=== PATIENT | female | born 1955 | race Caucasian/White ===

== ENCOUNTER 2019-10-18 18:45 | Observation (INO) | payer BC ==
[~2019-10-18] VITALS: Ht 172.7 cm; Wt 90.7 kg
[~2019-10-18 18:45] MED LIST changes: +ACETAMINOPHEN 325 MG TABLET PO PRN; -ATOR10TA66 PO; -BACI1CAP6 PO; -CEFD300C3 PO; -CETI10TA21 PO; -CHOL500061 PO; -HYDR12.56 PO; +KCL 8 MEQ (MICRO K) TABLET PO ONE; -LISI40TA PO; +LORazepam INJ 2 MG/ML (ATIVAN) VIAL IVP PRN; -MULT-1106 PO; -MULT1TAB60 PO; +ONDANSETRON 4 MG/2 ML (SDV) Z0FRAN IV PRN; +PATIENT MAY USE OWN MEDS, ALL PO SCH; -PHEN32.44 PO; -SULF1TAB35 PO
[2019-10-18] MEDS: cefTRIAXone FOR IV USE 1,000 MG in WATER (STERILE) FOR INJECTION 10 ML IV SCH (19:11)
[2019-10-18] MEDS: NS W/KCL 20 MEQ/L 1,000 ML IV SCH (19:11)
--- NOTE | 2019-10-18 19:35 | NUR ---
JOVANI LOPEZ admitted to room 426-1, with an admitting diagnosis of uti and hypokalemia , on 10/18/19 direct admit. JOVANI LOPEZ introduced to surroundings, call light, bed controls, phone, TV, temperature control, lights, meal times, smoking policy, visitor policy, side rail policy, bathrooms and showers. Patient Rights given to patient in the handbook. JOVANI LOPEZ verbalizes understanding that [facility] is not responsible for the loss or damage to any personal effects or valuables that are kept in the patients posession during their hospitalization. The following Patient Care Plans and discharge were discussed with the patient. JOVANI LOPEZ verbalizes understanding of Interdisciplinary Patient Education. Patient was informed about the Rapid Response Team and its purpose.
[2019-10-18] MEDS ORDERED: CATHETER FLUSH 10 ML SYR IV PRN (19:45)
[2019-10-18 20:00] VITALS: BP 147/77
[2019-10-18] MEDS ORDERED: PHENYTOIN 100 MG (DILANTIN) CAP PO SCH (21:00)
[2019-10-18] MEDS ORDERED: PHENobarbital 16.2 MG (1/4 GRAIN) TABLET PO SCH (21:00)
[2019-10-18 21:19] VITALS: BP 141/63
--- NOTE | 2019-10-18 21:35 | NUR ---
THIS RN WAS UPDATING MEDICATION REQ. PATIENT HAD QUESTIONS REGARDING IF SHE SHE TAKE ANY OF THE HOME MEDICATIONS THAT SHE BROUGHT WITH HER TO THE HOSPITAL. DR. LAUREN NOTIFIED OF PATIENT'S CONCERN AT THIS TIME. NO ADDITIONAL ORDERS FOR ANY HOME MEDICATIONS OTHER THAN WHAT WAS ORDERED UPON ADMISSION AT THIS TIME.
[2019-10-18] MEDS ORDERED: CHOL500061 PO (21:43)
[2019-10-18] MEDS ORDERED: ATOR10TA66 PO (21:43)
[2019-10-18] MEDS ORDERED: PHEN32.44 PO (21:43)
[2019-10-18] MEDS ORDERED: HYDR12.56 PO (21:43)
[2019-10-18] MEDS ORDERED: LISI40TA PO (21:43)
[2019-10-18] MEDS ORDERED: MULT-1106 PO (21:43)
[2019-10-18] MEDS ORDERED: PHEN100C4 PO (21:50)
[2019-10-19 00:30] VITALS: BP 128/70
[2019-10-19] MEDS: NS W/KCL 20 MEQ/L 1,000 ML IV SCH ×2 (02:17→09:25)
[2019-10-19 04:00] VITALS: BP 122/70
[2019-10-19 05:05] LABS: BASOPHILS % (AUTO) 0 % (0-10); EOSINOPHILS # (AUTO) 0.7 10^3/uL (0.0-0.3); EOSINOPHILS % (AUTO) 6 % (0-10); HEMATOCRIT 29 % (35-52); HEMOGLOBIN 9.7 G/DL (11.5-16.0); LYMPHOCYTES # (AUTO) 1.7 X 10^3 (1.0-4.0); LYMPHOCYTES % (AUTO) 15 % (12-44); MEAN CORPUSCULAR HEMOGLOBIN 29 PG (25-34); MEAN CORPUSCULAR HGB CONC 33 G/DL (32-36); MEAN CORPUSCULAR VOLUME 88 FL (80-99); MEAN PLATELET VOLUME 8.9 FL (7.4-10.4); MONOCYTES % (AUTO) 9 % (0-12); NEUTROPHILS # (AUTO) 8.2 X 10^3 (1.8-7.8); NEUTROPHILS % (AUTO) 70 % (42-75); PLATELET COUNT 396 10^3/uL (130-400); RED CELL DISTRIBUTION WIDTH 13.5 % (10.0-14.5); WHITE BLOOD COUNT 11.7 10^3/uL (4.3-11.0)
[2019-10-19 05:24] LABS: ALBUMIN 3.1 GM/DL (3.2-4.5); BILIRUBIN,TOTAL 0.2 MG/DL (0.1-1.0); CALCIUM 8.4 MG/DL (8.5-10.1); CREATININE SERUM 1.04 MG/DL (0.60-1.30); POTASSIUM 3.8 MMOL/L (3.6-5.0); TOTAL PROTEIN 5.8 GM/DL (6.4-8.2)
[2019-10-19 08:00] VITALS: BP 133/64
[2019-10-19] MEDS: cefTRIAXone FOR IV USE 1,000 MG in WATER (STERILE) FOR INJECTION 10 ML IV SCH (09:26)
[2019-10-19] MEDS ORDERED: BACI1CAP6 PO (09:39)
[2019-10-19] MEDS ORDERED: SULF1TAB35 PO (09:39)
[2019-10-19] MEDS ORDERED: CETI10TA21 PO (09:39)
[2019-10-19] MEDS ORDERED: MULT1TAB60 PO (09:39)
--- NOTE | 2019-10-19 09:39 | NUR ---
SPOKE WITH THE PT (SHE SAID SHE HAD HER HOME MEDS BUT I DID NOT NEED THEM) WENT THRU THE EXT MED HISTORY TO COMPLETE THE MED REC. DILANTIN 100MG: THE RX SAYS " 1-2 CAPS HS" HOWEVER THE PT JUST TAKES 1 HS ALL OTHER MEDS MATCH THE EXT MED HISTORY. OTC MEDS: VIT D MTV LOTTIE PintoYRTEC PROBIOTIC
[2019-10-19 12:00] VITALS: BP 129/87
[2019-10-19] MEDS ORDERED: CEFD300C3 PO (12:39)
--- NOTE | 2019-10-19 13:15 | Discharge Summary ---
Discharge Summary Hospital Course Was the Problem List Reviewed?: Yes Hospital Course Date of Admission: Oct 18, 2019 at 18:46 Admission Diagnosis : Family Physician/Provider: Marzena Schofield DO Date of Discharge: 10/19/19 Discharge Diagnosis: 1. Hypokalemia--improved 2. UTI--improving 3. Dehydration--Improved 4. Hypertension--stable 5. Seizure Disorder--Stable Hospital Course: See below Labs and Pending Lab Test: Laboratory Tests 10/19/19 04:30: White Blood Count 11.7H, Red Blood Count 3.31L, Hemoglobin 9.7L, Hematocrit 29L, Mean Corpuscular Volume 88, Mean Corpuscular Hemoglobin 29, Mean Corpuscular Hemoglobin Concent 33, Red Cell Distribution Width 13.5, Platelet Count 396, Mean Platelet Volume 8.9, Neutrophils (%) (Auto) 70, Lymphocytes (%) (Auto) 15, Monocytes (%) (Auto) 9, Eosinophils (%) (Auto) 6, Basophils (%) (Auto) 0, Neutrophils # (Auto) 8.2H, Lymphocytes # (Auto) 1.7, Monocytes # (Auto) 1.0, Eosinophils # (Auto) 0.7H, Basophils # (Auto) 0.0, Sodium Level 135, Potassium Level 3.8, Chloride Level 99, Carbon Dioxide Level 25, Anion Gap 11, Blood Urea Nitrogen 16, Creatinine 1.04, Estimat Glomerular Filtration Rate 54, BUN/Creatinine Ratio 15, Glucose Level 110H, Calcium Level 8.4L, Corrected Calcium 9.1, Total Bilirubin 0.2, Aspartate Amino Transf (AST/SGOT) 15, Alanine Aminotransferase (ALT/SGPT) 28, Alkaline Phosphatase 65, Total Protein 5.8L, Albumin 3.1L Home Meds Active Cefdinir 300 Mg Capsule 300 Mg PO BID Reported Probiotic (Bacillus Coagulans) 1 Each Capsule. 1 Each PO DAILY Zyrtec (Cetirizine HCl) 10 Mg Tablet 10 Mg PO DAILY Bactrim Ds Tablet (Sulfamethoxazole/Trimethoprim) 1 Each Tablet 1 Ea PO BID FILLED 10-18-2019 #29/05 DAY SUPPLY Chewable-Miguel (Multivitamin) 1 Each Tab.chew 2 Each PO DAILY Dilantin (Phenytoin Sodium Extended) 100 Mg Capsule 100 Mg PO HS Hydrochlorothiazide 12.5 Mg Tablet 12.5 Mg PO DAILY Vitamin D3 (Cholecalciferol (Vitamin D3)) 5,000 Unit Tab.rapdis 5,000 Unit PO DAILY Lisinopril 40 Mg Tablet 40 Mg PO DAILY Phenobarbital 32.4 Mg Tablet 32.4 Mg PO HS Atorvastatin Calcium 10 Mg Tablet 10 Mg PO HS Assessment/Pt Instructions This is a 64 year old female who had been treated for an outpatient UTI but was feeling worse. Laboratory was done which showed hypokalemia at 2.9 and renal insufficiency. It was decided to admit her for IVFs, correction of potassium as well as IV rocephin. She was admitted to the medical floor and given NS with 20meq of KCL via IV. She was also given IV rocephin and oral potassium replacement. The following hospital day, her potassium was back to normal at 3.8. She was feeling much better and urinating frequently. She was given another dose of IV rocephin and then discharged home to followup with me in the office tomorrow. She will hold her HCTZ until she sees me tomorrow. Discharge Planning: <30 minutes discharge planning Discharge Instructions Discharge Diet: Cardiac Diet Activity as Tolerated: Yes Discharge Physical Examination Vital Signs Vital Signs Date Time Temp Pulse Resp B/P (MAP) Pulse Ox O2 Delivery O2 Flow Rate FiO2 10/19/19 12:00 36.8 78 18 129/87 (101) 93 Room Air General Appearance: No Apparent Distress HEENT: Normal ENT Inspection Respiratory: Lungs Clear Cardiovascular: Regular Rate, Rhythm Gastrointestinal: Normal Bowel Sounds, Non Tender, Soft Extremity: Non Tender, No Calf Tenderness, No Pedal Edema Skin: Warm/Dry Neurologic/Psychiatric: Alert, Oriented x3 Allergies: Coded Allergies: carbamazepine (Unverified Allergy, Unknown, 10/18/19) Discharge Summary Date of Admission Oct 18, 2019 at 18:46 Date of Discharge Clinical Quality Measures DVT/VTE Risk/Contraindication: Risk Factor Score Per Nursin RFS Level Per Nursing on Admit: 3=High MARZENA SCHOFIELD DO Oct 19, 2019 13:06
[2019-10-19 13:42] VITALS: BP 129/87
--- OUTSIDE RECORDS SUMMARY | 2019-10-20 22:35 | XMS REPORT | CCD ---
Author Author Clarissa Schofield D.O. Organization VIRAJ SCHOFIELD DO [facility] Address [address] [place] [address] Phone Care Team Providers Care Medical Billing Clerk Name Role Phone PP Unavailable CCM Unavailable Summary Purpose Interface Exchange Insurance Providers Payer name Policy type / Coverage type Covered green party ID Effective Begin Date Effective End Date Blue Cross Blue Shield Blue Cross/Blue Shield [id number] Unknown Family history Mother Diagnosis Age At Onset Dementia Unknown Macular degeneration Unknown Breast cancer Unknown Sister Diagnosis Age At Onset Macular degeneration Unknown Ovarian cancer Unknown Breast cancer Unknown Social History Social History Element Codes Description Effective Dates Marital status Unknown 05/03/2019 Number of children Unknown 3 05/03/2019 Employment Unknown Retired 05/03/[address]: 635890886 Has never smoked or chewed tobacco 05/03/[address]: 454552 Currently drinks alcohol 05/03 Frequency of drinks SNOMED CT: 485997639 Drinks rarely 019 Has the patient ever used illegal drugs? Unknown Has nev er used illegal drugs 05/03/2019 Allergies, Adverse Reactions, Alerts Substance Reaction Codes Entered Date Inactivated Date Status * NO KNOWN ENVIRONMENTAL ALLERGIES Unknown 05/03/2019 N o Inactive Date Active * NO KNOWN FOOD ALLERGIES Unknown 05/03/2019 No Inactiv e Date Active CARBAMAZEPINE DERIVATIVES reaction Unknown 05/03/2019 No Inactiv e Date Active Problems Condition Codes Effective Dates Condition Status Essential hypertension ICD-9: 401.9 ICD-10: I10 06/07/2019 Active Fatigue ICD-9: 780.79 ICD-10: R53.83 10/18/2019 Active Seizure ICD-9: 780.39 ICD-10: R56.9 05/03/2019 Active UTI (urinary tract infection) ICD-9: 599.0 ICD-10: N39.0 10/10/2019 Active Weakness ICD-9: 780.79 ICD-10: R53.1 10/18/2019 Active Pneumonia due to infectious organism ICD-9: 486 ICD-10: J18.9 08/11/2019 Active Sinusitis ICD-9: 473.9 ICD-10: J32.9 06/29/2019 Active Hypertension Unknown 06/07/2019 Active Abnormal mammogram ICD-9: 793.80 ICD-10: R92.8 05/23/2019 Active Elevated blood pressure reading ICD-9: 796.2 ICD-10: R03.0 05/03/2019 Active FLU VACCINE ICD-9: V04.81 ICD-10: Z23 05/03/2019 Active Knee pain, bilateral ICD-9: 719.46 ICD-10: M25.561 05/03/2019 Active Medications Medication Codes Instructions Start Date Stop Date Status Fill Instructions lisinopril 40 mg tablet RxNorm: 913939 1 Tablet(s) Oral QD 10/18/1910/18/2019 Inactive Bactrim DS 800 mg-160 mg tablet RxNorm: 171850 1 Tablet(s) Oral two times a day 10/18/2019 10/28/2019 Active phenobarbital 32.4 mg tablet RxNorm: 269008 1 Tablet(s) Oral every night at bedtime 10/10/2019 04/07/2020 Active Macrobid 100 mg capsule RxNorm: 967134 1 Capsule(s) Oral two ti mes a day 10/10/2019 10/13/2019 Inactive Dilantin Extended 100 mg capsule RxNorm: 112347 1-2 Cap gael(s) Oral every night at bedtime 09/21/2019 03/18/2020 Active albuterol sulfate 2.5 mg/3 mL (0.083 %) solution for n ebulization RxNorm: 577559 1 Unit Dose Inhalation four times a day 08/11/2019 10/10/2019 I nactive Augmentin 500 mg-125 mg tablet RxNorm: 336947 1 Tablet(s) Oral two times a day 08/11/2019 08/18/2019 Inactive doxycycline hyclate 100 mg capsule RxNorm: 1041351 1 Cap gael(s) Oral two times a day 08/01/2019 08/07/2019 Inactive doxycycline hyclate 100 mg capsule RxNorm: 8523983 1 Cap gael(s) Oral two times a day 08/01/2019 07/31/2019 Inactive hydrochlorothiazide 12.5 mg capsule RxNorm: 372352 1 Capsule(s) Oral QAM 07/19/2019 10/17/2019 Inactive lisinopril 40 mg tablet RxNorm: 303062 1 Tablet(s) Oral QD 07/19/2007/19/2019 Inactive Zithromax Z-Alex 250 mg tablet RxNorm: 982507 Tablet(s) Oral estefany e as directed 06/29/2019 07/18/2019 Inactive lisinopril 40 mg tablet RxNorm: 960451 1 Tablet(s) Oral QD 06/29/20 19 07/18/2019 Inactive Dilantin Extended 100 mg capsule RxNorm: 331318 1-2 Cap gael(s) Oral every night at bedtime 06/07/2019 09/20/2019 Inactive lisinopril 20 mg tablet RxNorm: 791060 1 Tablet(s) Oral QD 06/07/20 19 06/29/2019 Inactive phenobarbital 32.4 mg tablet RxNorm: 841385 1 Tablet(s) Oral every night at bedtime 06/07/2019 09/04/2019 Inactive atorvastatin 10 mg tablet RxNorm: 735706 1 Tablet(s) Oral QD 201811/01/2019 Active atorvastatin 10 mg tablet RxNorm: 951076 1 Tablet(s) Oral QD 201805/05/2019 Inactive Zyrtec 10 mg tablet RxNorm: 4841133 1 Tablet(s) Oral QAM 05/03/2019 No Stop Date Active Fish Oil 1,000 mg (120 mg-180 mg) capsule RxNorm: 1 Caps ule(s) Oral QD 05/03/2019 No Stop Date Active Vitamin D3 5,000 unit tablet RxNorm: 332449 1 Tablet(s) Oral QD No Stop Date Active Centrum 18 mg-400 mcg tablet RxNorm: 1 Tablet(s) Oral QD 05/03 No Stop Date Active Dilantin Extended 100 mg capsule RxNorm: 442292 1-2 Cap gael(s) Oral every night at bedtime 05/03/2019 06/06/2019 Inactive phenobarbital 32.4 mg tablet RxNorm: 487326 1 Tablet(s) Oral every night at bedtime 05/03/2019 06/06/2019 Inactive Medication Administered No Medication Administered data Immunizations Vaccine Codes Date Status Influenza CVX: 141 05/03/2019 Complete Influenza CVX: 141 05/03/2019 Complete Results Observation Observation Code Item Item Code Result Date [facility] Location COMPLETE BLOOD COUNT [id number] WBC 12.2 10e9/L 020 Unknown COMPLETE BLOOD COUNT [id number] RBC 3.86 10e12/L 2019 Unknown COMPLETE BLOOD COUNT 1788343 HEMOGLOBIN 11.4 g/dL 10/18/19 20 Unknown COMPLETE BLOOD COUNT [id number] HEMATOCRIT 34.3 % 10/18/19 20 Unknown COMPLETE BLOOD COUNT [id number] MCV 88.9 fL 0 Unknown COMPLETE BLOOD COUNT 7000773 MCH 29.5 pg 0 Unknown COMPLETE BLOOD COUNT [id number] MCHC 33.2 g/dL 0 Unknown COMPLETE BLOOD COUNT [id number] PLATELET COUNT 495 10e9/L 05/2020 Unknown COMPLETE BLOOD COUNT [id number] Mean Plt Volume 8.9 fL 05/2020 Unknown COMPLETE BLOOD COUNT [id number] Neut Auto 74.8 % 0 Unknown COMPLETE BLOOD COUNT 7809894 Lymph Auto 11.9 % 10/18/19 20 Unknown COMPLETE BLOOD COUNT 6013251 [place] Auto 7.5 % 0 Unknown COMPLETE BLOOD COUNT 5286655 RDW 13.8 % 0 Unknown COMPLETE BLOOD COUNT 9330747 Eos Auto 5.3 % 0 Unknown COMPLETE BLOOD COUNT 1265814 Baso Auto 0.5 % 0 Unknown COMPLETE BLOOD COUNT [id number] Neutrophil Abs 9.13 10e9/L Unknown COMPLETE BLOOD COUNT 1981047 Lymphocyte Abs 1.45 10e9/L Unknown COMPLETE BLOOD COUNT 1025499 Monocyte Abs 0.92 10e9/L 10/08 Unknown COMPLETE BLOOD COUNT [id number] Eosinophil Abs 0.65 10e9/L Unknown COMPLETE BLOOD COUNT 2642830 RDW-SD 44.0 fL 0 Unknown COMPLETE BLOOD COUNT [id number] Basophil Abs 0.06 10e9/L 10/08 Unknown GFR CALC 7843998 GFR Non Afr Amr 50 mL/min 10/18/2019 Unk nown GFR CALC 6234199 GFR Afr Amr 60 mL/min 10/18/2019 Unknown COMPREHENSIVE METABOLIC 03004 AST 18 U/L 2019 Unknown COMPREHENSIVE METABOLIC 24382 ALT 31 U/L 2019 Unknown COMPREHENSIVE METABOLIC 19642 BUN 20 mg/dL 2019 Unknown COMPREHENSIVE METABOLIC 47811 ALBUMIN 3.7 g/dL 2019 Unknown COMPREHENSIVE METABOLIC 71924 CHLORIDE 90 mmol/L 2019 Unknown COMPREHENSIVE METABOLIC 64200 Bili Total 0.3 mg/dL 10/17 Unknown COMPREHENSIVE METABOLIC 19170 ALK PHOS 84 U/L 2019 Unknown COMPREHENSIVE METABOLIC 47996 SODIUM 132 mmol/L 10/17 Unknown COMPREHENSIVE METABOLIC 38845 CREATININE 1.11 mg/dL 10/08 Unknown COMPREHENSIVE METABOLIC 13142 CALCIUM 8.7 mg/dL 2019 Unknown COMPREHENSIVE METABOLIC 81468 POTASSIUM 2.9 mmol/L 10/17 Unknown COMPREHENSIVE METABOLIC 42803 Total Protein 6.6 g/dL Unknown COMPREHENSIVE METABOLIC 38801 Glucose 109 mg/dL 2019 Unknown COMPREHENSIVE METABOLIC 60539 Bicarbonate 31 mmol/L 10/08 Unknown COMPREHENSIVE METABOLIC 33737 AGAP 11 mmol/L 2019 Unknown Procedures Procedure Codes Date URINE CULTURE/ COLONY COUNT CPT-4: 43453 10/18/2019 COMPLETE CBC W/AUTO DIFF WBC CPT-4: 76275 10/18/2019 COMPREHEN METABOLIC PANEL CPT-4: 34126 10/18/2019 ASSAY OF PHENYTOIN TOTAL CPT-4: 43191 10/18/2019 ASSAY OF PHENOBARBITAL CPT-4: 95958 10/18/2019 URINALYSIS NONAUTO W/O SCOPE CPT-4: 36393 10/10/2019 THER/PROPH/DIAG INJ SC/IM CPT-4: 59285 10/10/2019 CEFTRIAXONE SODIUM INJECTION CPT-4: J0696 10/10/2019 URINE CULTURE/ COLONY COUNT CPT-4: 73746 10/10/2019 THER/PROPH/DIAG INJ SC/IM CPT-4: 14070 08/11/2019 TRIAMCINOLONE ACET INJ NOS CPT-4: J3301 08/11/2019 CEFTRIAXONE SODIUM INJECTION CPT-4: J0696 08/11/2019 THER/PROPH/DIAG INJ SC/IM CPT-4: 92498 08/11/2019 IIV4 VACC NO PRSV 6 MTHS TO 64 YRS+ IM CPT-4: 66487 05/03/2019 IIV4 VACC NO PRSV 6 MTHS TO 64 YRS+ IM CPT-4: 50064 05/03/2019 IMMUNIZATION ADMIN CPT-4: 64012 05/03/2019 Vital Signs Date Vital 10/18/2019 Blood Pressure 1: 138/82 Code: 8480-6 Heart Rate 1: 82 bpm Respiratory Rate: 20 bpm SpO2: 98% Temperature: 36.7 (C) / 98.0 (F) We ight: 10/10/2019 Blood Pressure 1: 144/79 Code: 8480-6 Heart Rate 1: 97 bpm Respiratory Rate: 17 bpm SpO2: 98% Temperature: 36.6 (C) / 97.9 (F) We ight: 202 lbs 08/11/2019 Blood Pressure 1: 126/78 Code: 8480-6 Heart Rate 1: 92 bpm Respiratory Rate: 20 bpm SpO2: 97% Temperature: 37.0 (C) / 98.6 (F) 07/19/2019 Blood Pressure 1: 140/88 Code: 8480-6 He art Rate 1: 80 bpm 06/29/2019 Blood Pressure 1: 158/88 Code: 8480-6 Heart Rate 1: 80 bpm Respiratory Rate: 20 bpm SpO2: 98% Temperature: 37.2 (C) / 99.0 (F) 06/07/2019 Blood Pressure 1: 150/92 Code: 8480-6 Heart Rate 1: 68 bpm Respiratory Rate: 20 bpm SpO2: 98% Temperature: 36.8 (C) / 98.2 (F) We ight: 204 lbs 05/03/2019 Blood Pressure 1: 146/92 Code: 8480-6 BMI: 32.3 Code: 59607-7 Heart Rate 1: 72 bpm Height: 5'6" Respiratory Rate: 18 bpm SpO2: 98% Tempera ture: 36.8 (C) / 98.2 (F) Weight: 203 lbs Functional Status No Functional Status data Reason For Visit Reason For Visit Effective Dates Notes fatigue 10/18/2019 urinary retention/hesitancy 10/10/2019 follow up 08/11/2019 blood pressure check 07/19/2019 high blood pressure 06/29/2019 high blood pressure 06/07/2019 ~generic 05/03/2019 New Patient--mariella jose m care Encounters Encounter Performer Location Codes Date ([id number]) OFFICE/OUTPATIENT VISIT EST Diagnosis: Essential hypertension[ICD10: I10] Diagnosis: Seizure[ICD10: R56.9] Diagnosis: UTI (urinary tract infection)[ICD10: N39.0] Diagnosis: Fatigue[ICD10: R53.83] Diagnosis: Weakness[ICD10: R53.1] Brittney Triana VIRAJ SCHOFIELD DO [employer] CPT-4: 99659 10/18/2019 ([id number]) OFFICE/OUTPATIENT VISIT EST Diagnosis: UTI (urinary tract infection)[ICD10: N39.0] Brittney Triana VIRAJ Lutz AMYAARON [facility] [employer] CPT-4: 67342 10/10/2019 ([id number]) OFFICE/OUTPATIENT VISIT EST Diagnosis: Pneumonia due to infectious organism[ICD10: J18.9] Viraj SCHOFIELD DO [employer] CPT-4: 54677 08/11/2019 ([id number]) OFFICE/OUTPATIENT VISIT EST Diagnosis: Essential hypertension[ICD10: I10] Diagnosis: Sinusitis[ICD10: J32.9] Brittney TREVIZOAFSHIN Lutz AMYTRISTAN DAVEY [employer] CPT-4: 81325 06/29/2019 ([id number]) OFFICE/OUTPATIENT VISIT EST Diagnosis: Essential hypertension[ICD10: I10] Viraj Lutz AMYAARON [employer] CPT-4: 20371 06/07/2019 OFFICE/OUTPATIENT VISIT NEW Diagnosis: FLU VACCINE[ICD10: Z23] Diagnosis: Seizure[ICD10: R56.9] Diagnosis: Knee pain, bilateral[ICD10: M25.561] Diagnosis: Elevated blood pressure reading[ICD10: R03.0] Viraj Lutz AMYAARON [employer] CPT-4: 65056 05/03/2019 Plan of Care Planned Activity Notes Codes Status Date Visit Diagnosis Plan: UTI (urinary tract infection) Di scussion: will repeat urine culture. bactrim sent out for patient to start due to continued blood and leukocytes present in urine. ICD-9 : 599.0 ICD-10 : N39.0 10/18/2019 Visit Diagnosis Plan: Fatigue Discussion: cbc, cmp, ur ine culture ordered. ekg ordered as well. phenobarbital and dilantin levels ordered and instructed patient to push fluids. ICD-9 : 780.79 ICD-10 : R53.83 10/18/2019 Patient Education: lisinopril- [employer] Coupon [id number] [email or web address]/samplemd/resources/[email or web address] Completed 10/18/2019 Patient Education: High Blood Pressure Co mpleted 10/18/2019 Visit Diagnosis Plan: UTI (urinary tract infection) Di scussion: due to severity of uti and length, rocephin 1 gm given in office. macrobid to take as directed to start tomorrow. push fluids. will send off for culture. to start probiotic daily Discussion: due to severity of uti and length, rocephin 1 gm given in office. macrobid to take as directed to start tomorrow. push fluids. will send off for culture. to start probiotic daily. ICD-9 : 599.0 ICD-10 : N39.0 10/10/2019 Appointment: Brittney Triana [address] [place] [address] ACUTE ILLNESS 10/10/2019 Visit Diagnosis Plan: Pneumonia due to infectious orga nism Discussion: Rocephin 1gm IM and Kenalog 40mg IM Start augementin tomorrow with probiotic BID Start SVNS with albuterol TID to QID Call tomorrow if needs seen or to ER this weekend if worsening ICD-9 : 486 ICD-10 : J18.9 08/11/2019 Appointment: Viraj Schofield WPtel: [address] [place], [place] [phone] ACUTE ILLNESS 08/11/2019 Appointment: Viraj Schofield WPtel: [address] [place], [place] [id number] US BP CHECK 07/19/2019 Visit Diagnosis Plan: Essential hypertension Discussio n: increase lisinopril to 40 mg daily. keep log of bp daily and bring in 2 weeks and also recheck bp in office in 2 weeks. ICD-9 : 401.9 ICD-10 : I10 06/29/2019 Visit Diagnosis Plan: Sinusitis Discussion: patient di d not tolerate cefdinir and augmentin is harsh on her gi system. will prescribe zpack but educated patient that many sinus infections are becoming resistant to medications. call if no improvement by thursday. coricidin hbp prn sinus pressure. ICD-9 : 473.9 ICD-10 : J32.9 06/29/2019 Appointment: Viraj Schofield WPtel: [address] [place] [address] BP CHECK 06/29/2019 Appointment: Brittney Triana [address] [place] [address] ACUTE ILLNESS 06/29/2019 Patient Education: [facility]inez Patient Savings Message - Lisinopril Completed 06/29/2019 Patient Education: High Blood Pressure Co mpleted 06/29/2019 Appointment: Viraj Schofield WPtel: [address] [place] [address] US did not need appt. Only to come in for BP 3 weeks from previ ous patient. CANCELED 06/28/2019 Visit Diagnosis Plan: Essential hypertension Discussio n: Start lisinopril 20mg daily Monitor home BP Return in 3 weeks for BP check with home readings as well as home cuff ICD-9 : 401.9 ICD-10 : I10 06/07/2019 Appointment: Viraj Schofield WPtel: [address] [place] [address] FOLLOW UP 06/07/2019 Patient Education: [facility] Patient Savings Message - Lisinopril Completed 06/07/2019 Patient Education: Dilantin Extended- OptimizeRX Coupo n [id number] [email or web address]/samplemd/resources/getResource/[email or web address] Completed 06/07/2019 Patient Education: phenobarbital- [employer] Coupon [phone] [id number] [email or web address].com/samplemd/resources/getResource/61/[email or web address]-[email or web address] Completed 06/07/2019 Visit Plan: Mammogram ordered Patient wi ll find out if her mom's colon resection was due to cancer or other reason--discussed that if was from cancer then is due for colonoscopy since should be every 5 years May need pelvic US due to family history of [employer] cancers Referral to dermatology for skin check DtaP up to date Flu shot given 05/03/2019 Visit Diagnosis Plan: Seizure Discussion: Stable on ph enobarbital and phenytoin Discussed possible neurology eval for updated EEG to see if continues to need medications ICD-9 : 780.39 ICD-10 : R56.9 05/03/2019 Visit Diagnosis Plan: Elevated blood pressure reading Discussion: Low Na Diet and return in 4 weeks for BP check ICD-9 : 796.2 ICD-10 : R03.0 05/03/2019 Visit NOS Plan: Plan Notes: Mammogram ordere d Patient karthikeyan... 05/03/2019 Visit Diagnosis Plan: Knee pain, bilateral Discussion: Did Stem Cell treatment 2 years ago and doing well ICD-9 : 719.46 ICD-10 : M25.561 05/03/2019 Appointment: Viraj Schofield WPtel: [phone] [facility] NEW PATIENT 05/03/2019 Referral: Sofía More WPtel: [facility] [address] [facility] Referral Initiated Instructions Comment . Mammogram ordered Patient will find out if her mom's colon resection was due to cancer or other reason--discussed that if was from cancer then is due for colonoscopy since should be every 5 years May need pelvic US due to family history of [employer] cancers Referral to dermatology for skin check DtaP up to date Flu shot given Medical Equipment No Medical Equipment data Health Concerns Section Health Concerns data not found Goals Section Goals data not found Interventions Section Interventions data not found Health Status Evaluations/Outcomes Section Health Status Evaluations/Outcomes data not found Advance Directives No Advance Directive data
--- OUTSIDE RECORDS SUMMARY | 2019-10-20 22:35 | XMS REPORT | CCD ---
Author Author Clarissa Schofield D.O. 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 Name Role Phone PP Unavailable CCM Unavailable Summary Purpose Interface Exchange Insurance Providers Payer name Policy type / Coverage type Covered green party ID Effective Begin Date Effective End Date Blue Cross Blue Shield Blue Cross/Blue Shield [id number] Unknown Family history Mother Diagnosis Age At Onset Dementia Unknown Macular degeneration Unknown Breast cancer Unknown Sister Diagnosis Age At Onset Macular degeneration Unknown Ovarian cancer Unknown Breast cancer Unknown Social History Social History Element Codes Description Effective Dates Marital status Unknown 05/03/2019 Number of children Unknown 3 05/03/2019 Employment Unknown Retired 05/03/[address]: 543956815 Has never smoked or chewed tobacco 05/03/[address]: 341634 Currently drinks alcohol 05/03 Frequency of drinks SNOMED CT: 383485029 Drinks rarely 019 Has the patient ever [...] Start Date Stop Date Status Fill Instructions Bactrim DS 800 mg-160 mg tablet RxNorm: 602571 1 Tablet(s) Oral two times a day 10/18/2019 10/28/2019 Active lisinopril 40 mg tablet RxNorm: 404779 1 Tablet(s) Oral QD 10/18/1910/18/2019 Inactive phenobarbital 32.4 mg tablet RxNorm: 196658 1 Tablet(s) Oral every night at bedtime 10/10/2019 04/07/2020 Active Macrobid 100 mg capsule RxNorm: 452446 1 Capsule(s) Oral two ti mes a day 10/10/2019 10/13/2019 Inactive Dilantin Extended 100 mg capsule RxNorm: 116867 1-2 Cap gael(s) Oral every night at bedtime 09/21/2019 03/18/2020 Active albuterol sulfate 2.5 mg/3 mL (0.083 %) solution for n ebulization RxNorm: 578932 1 Unit Dose Inhalation four times a day 08/11/2019 10/10/2019 I nactive Augmentin 500 mg-125 mg tablet RxNorm: 266346 1 Tablet(s) Oral two times a day 08/11/2019 08/18/2019 Inactive doxycycline hyclate 100 mg capsule RxNorm: 9596556 1 Cap gael(s) Oral two times a day 08/01/2019 08/07/2019 Inactive doxycycline hyclate 100 mg capsule RxNorm: 1110984 1 Cap gael(s) Oral two times a day 08/01/2019 07/31/2019 Inactive hydrochlorothiazide 12.5 mg capsule RxNorm: 540589 1 Capsule(s) Oral QAM 07/19/2019 10/17/2019 Inactive lisinopril 40 mg tablet RxNorm: 185340 1 Tablet(s) Oral QD 07/19/2007/19/2019 Inactive Zithromax Z-Alex 250 mg tablet RxNorm: 446379 Tablet(s) Oral estefany e as directed 06/29/2019 07/18/2019 Inactive lisinopril 40 mg tablet RxNorm: 816312 1 Tablet(s) Oral QD 06/29/20 19 07/18/2019 Inactive Dilantin Extended 100 mg capsule RxNorm: 114511 1-2 Cap gael(s) Oral every night at bedtime 06/07/2019 09/20/2019 Inactive lisinopril 20 mg tablet RxNorm: 540170 1 Tablet(s) Oral QD 06/07/20 19 06/29/2019 Inactive phenobarbital 32.4 mg tablet RxNorm: 380286 1 Tablet(s) Oral every night at bedtime 06/07/2019 09/04/2019 Inactive atorvastatin 10 mg tablet RxNorm: 230727 1 Tablet(s) Oral QD 201811/01/2019 Active atorvastatin 10 mg tablet RxNorm: 399390 1 Tablet(s) Oral QD 201805/05/2019 Inactive Zyrtec 10 mg tablet RxNorm: 7023164 1 Tablet(s) Oral QAM 05/03/2019 No Stop Date Active Fish Oil 1,000 mg (120 mg-180 mg) capsule RxNorm: 1 Caps ule(s) Oral QD 05/03/2019 No Stop Date Active Vitamin D3 5,000 unit tablet RxNorm: 383748 1 Tablet(s) Oral QD No Stop Date Active Centrum 18 mg-400 mcg tablet RxNorm: 1 Tablet(s) Oral QD 05/03 No Stop Date Active Dilantin Extended 100 mg capsule RxNorm: 962554 1-2 Cap gael(s) Oral every night at bedtime 05/03/2019 06/06/2019 Inactive phenobarbital 32.4 mg tablet RxNorm: 500210 1 Tablet(s) Oral every night at bedtime 05/03/2019 06/06/2019 Inactive Medication Administered No Medication Administered data Immunizations Vaccine Codes Date Status Influenza CVX: 141 05/03/2019 Complete Influenza CVX: 141 05/03/2019 Complete Results Observation Observation Code Item Item Code Result Date S [facility] Location COMPLETE BLOOD COUNT [id number] WBC 12.2 10e9/L 020 Unknown COMPLETE BLOOD COUNT [id number] RBC 3.86 10e12/L 2019 Unknown COMPLETE BLOOD COUNT [id number] HEMOGLOBIN 11.4 g/dL 10/18/19 20 Unknown COMPLETE BLOOD COUNT 1063595 HEMATOCRIT 34.3 % 10/18/19 20 Unknown COMPLETE BLOOD COUNT [id number] MCV 88.9 fL 0 Unknown COMPLETE BLOOD COUNT [id number] MCH 29.5 pg 0 Unknown COMPLETE BLOOD COUNT [id number] MCHC 33.2 g/dL 0 Unknown COMPLETE BLOOD COUNT [id number] PLATELET COUNT 495 10e9/L 05/2020 Unknown COMPLETE BLOOD COUNT [id number] Mean Plt Volume 8.9 fL 05/2020 Unknown COMPLETE BLOOD COUNT [id number] Neut Auto 74.8 % 0 Unknown COMPLETE BLOOD COUNT [id number] Lymph Auto 11.9 % 10/18/19 20 Unknown COMPLETE BLOOD COUNT 9555065 Candler Auto 7.5 % 0 Unknown COMPLETE BLOOD COUNT [id number] RDW 13.8 % 0 Unknown COMPLETE BLOOD COUNT [id number] Eos Auto 5.3 % 0 Unknown COMPLETE BLOOD COUNT 3792244 Baso Auto 0.5 % 0 Unknown COMPLETE BLOOD COUNT [id number] Neutrophil Abs 9.13 10e9/L Unknown COMPLETE BLOOD COUNT 6113144 Lymphocyte Abs 1.45 10e9/L Unknown COMPLETE BLOOD COUNT [id number] Monocyte Abs 0.92 10e9/L 10/08 Unknown COMPLETE BLOOD COUNT 4101508 Eosinophil Abs 0.65 10e9/L Unknown COMPLETE BLOOD COUNT 7329240 RDW-SD 44.0 fL 0 Unknown COMPLETE BLOOD COUNT [id number] Basophil Abs 0.06 10e9/L 10/08 Unknown GFR CALC 5166907 GFR Non Afr Amr 50 mL/min 10/18/2019 Unk nown GFR CALC 9005718 GFR Afr Amr 60 mL/min 10/18/2019 Unknown ASSAY OF PHENYTOIN TOTAL 57029 DILANTIN <1.8 ug/mL 10/08 Unknown COMPREHENSIVE METABOLIC 67857 AST 18 U/L 2019 Unknown COMPREHENSIVE METABOLIC 36385 ALT 31 U/L 2019 Unknown COMPREHENSIVE METABOLIC 48377 BUN 20 mg/dL 2019 Unknown COMPREHENSIVE METABOLIC 73964 ALBUMIN 3.7 g/dL 2019 Unknown COMPREHENSIVE METABOLIC 97878 CHLORIDE 90 mmol/L 2019 Unknown COMPREHENSIVE METABOLIC 90229 Bili Total 0.3 mg/dL 10/17 Unknown COMPREHENSIVE METABOLIC 37735 ALK PHOS 84 U/L 2019 Unknown COMPREHENSIVE METABOLIC 92597 SODIUM 132 mmol/L 10/17 Unknown COMPREHENSIVE METABOLIC 80644 CREATININE 1.11 mg/dL 10/08 Unknown COMPREHENSIVE METABOLIC 00624 CALCIUM 8.7 mg/dL 2019 Unknown COMPREHENSIVE METABOLIC 66310 POTASSIUM 2.9 mmol/L 10/17 Unknown COMPREHENSIVE METABOLIC 55726 Total Protein 6.6 g/dL Unknown COMPREHENSIVE METABOLIC 46747 Glucose 109 mg/dL 2019 Unknown COMPREHENSIVE METABOLIC 94755 Bicarbonate 31 mmol/L 10/08 Unknown COMPREHENSIVE METABOLIC 22435 AGAP 11 mmol/L 2019 Unknown Procedures Procedure Codes Date URINE CULTURE/ COLONY COUNT CPT-4: 34230 10/18/2019 COMPLETE CBC W/AUTO DIFF WBC CPT-4: 05618 10/18/2019 COMPREHEN METABOLIC PANEL CPT-4: 63207 10/18/2019 ASSAY OF PHENYTOIN TOTAL CPT-4: 51434 10/18/2019 ASSAY OF PHENOBARBITAL CPT-4: 45361 10/18/2019 URINALYSIS NONAUTO W/O SCOPE CPT-4: 15484 10/10/2019 THER/PROPH/DIAG INJ SC/IM CPT-4: 06282 10/10/2019 CEFTRIAXONE SODIUM INJECTION CPT-4: J0696 10/10/2019 URINE CULTURE/ COLONY COUNT CPT-4: 43447 10/10/2019 THER/PROPH/DIAG INJ SC/IM CPT-4: 96723 08/11/2019 TRIAMCINOLONE ACET INJ NOS CPT-4: J3301 08/11/2019 CEFTRIAXONE SODIUM INJECTION CPT-4: J0696 08/11/2019 THER/PROPH/DIAG INJ SC/IM CPT-4: 69737 08/11/2019 IIV4 VACC NO PRSV 6 MTHS TO 64 YRS+ IM CPT-4: 73568 05/03/2019 IIV4 VACC NO PRSV 6 MTHS TO 64 YRS+ IM CPT-4: 29620 05/03/2019 IMMUNIZATION ADMIN CPT-4: 92153 05/03/2019 Vital Signs Date Vital 10/18/2019 Blood [...] 1: 146/92 Code: 8480-6 BMI: 32.3 Code: 78597-2 Heart Rate 1: 72 bpm Height: 5'6" Respiratory Rate: 18 bpm SpO2: 98% Tempera ture: 36.8 (C) / 98.2 (F) Weight: 203 lbs Functional Status No Functional Status data Reason For Visit Reason For Visit Effective Dates Notes fatigue 10/18/2019 urinary retention/hesitancy 10/10/2019 follow up 08/11/2019 blood pressure check 07/19/2019 high blood pressure 06/29/2019 high blood pressure 06/07/2019 ~generic 05/03/2019 New Patient--[facility] Encounters Encounter Performer Location Codes Date ([id number]) OFFICE/OUTPATIENT VISIT EST Diagnosis: Essential hypertension[ICD10: I10] Diagnosis: Seizure[ICD10: R56.9] Diagnosis: UTI (urinary tract infection)[ICD10: N39.0] Diagnosis: Fatigue[ICD10: R53.83] Diagnosis: Weakness[ICD10: R53.1] Brittney LOZALINE CharletteMitch XIN FU DiJiPOP LC CPT-4: 45374 10/18/2019 ([id number]) OFFICE/OUTPATIENT VISIT EST Diagnosis: UTI (urinary tract infection)[ICD10: N39.0] Brittney LOZALINE CharletteMitch JUAN PABLONDPETAR [employer] CPT-4: 12801 10/10/2019 ([id number]) OFFICE/OUTPATIENT VISIT EST Diagnosis: Pneumonia due to infectious organism[ICD10: J18.9] Marzena Juan Pabloaaron CALI SMitch JUAN PABLOAARON [facility] CPT-4: 42004 08/11/2019 ([id number]) OFFICE/OUTPATIENT VISIT EST Diagnosis: Essential hypertension[ICD10: I10] Diagnosis: Sinusitis[ICD10: J32.9] Brittney LOZALINE Charlette. JUAN PABLOND PETAR [facility] CPT-4: 50698 06/29/2019 ([id number]) OFFICE/OUTPATIENT VISIT EST Diagnosis: Essential hypertension[ICD10: I10] Marzena Lutz JUAN PABLOTRISTANPETAR [facility] CPT-4: 76456 06/07/2019 OFFICE/OUTPATIENT VISIT NEW Diagnosis: FLU VACCINE[ICD10: Z23] Diagnosis: Seizure[ICD10: R56.9] Diagnosis: Knee pain, bilateral[ICD10: M25.561] Diagnosis: Elevated blood pressure reading[ICD10: R03.0] Marzena Juan Pabloaaron CALI SMitch JUAN PABLONDPETAR [facility] CPT-4: 77076 05/03/2019 Plan of Care Planned Activity Notes [...] ICD-9 : 780.79 ICD-10 : R53.83 10/18/2019 Appointment: Brittney Triana [address] [place] [address] ACUTE ILLNESS 10/18/2019 Patient Education: lisinopril- OptimizeRX Coupon [id number] [email or web address]/getResource/[email or web address] Completed 10/18/2019 Patient Education: High Blood Pressure [...] ICD-10 : N39.0 10/10/2019 Appointment: Brittney Triana [address] [place] [address] ACUTE ILLNESS 10/10/2019 Visit Diagnosis Plan: Pneumonia due to infectious orga nism Discussion: Rocephin 1gm IM and Kenalog 40mg IM Start augementin tomorrow with probiotic BID Start SVNS with albuterol TID to QID Call tomorrow if needs seen or to ER this weekend if worsening ICD-9 : 486 ICD-10 : J18.9 08/11/2019 Appointment: Marzena Schofield WPtel: [address] [place] [address] ACUTE ILLNESS 08/11/2019 Appointment: Marzena Schofield WPtel: [phone] [phone] [place] BP CHECK 07/19/2019 Visit Diagnosis Plan: [...] : 473.9 ICD-10 : J32.9 06/29/2019 Appointment: Marzena Schofield WPtel: [address] [place], [place] [id number] BP CHECK 06/29/2019 Appointment: Brittney Triana [address] [place], [place] [address]a [facility] ACUTE ILLNESS 06/29/2019 Patient Education: Celina martinez Patient Savings Message - Lisinopril Completed 06/29/2019 Patient Education: High Blood Pressure Co mpleted 06/29/2019 Appointment: Marzena Schofield WPtel: [address] [place], [place] [phone] [place] did not need appt. Only to come in for BP 3 weeks from previ [place] patient. CANCELED 06/28/2019 Visit Diagnosis Plan: Essential hypertension Discussio n: Start lisinopril 20mg daily Monitor home BP Return in 3 weeks for BP check with home readings as well as home cuff ICD-9 : 401.9 ICD-10 : I10 06/07/2019 Appointment: Marzena Schofield WPtel: [phone] [facility] FOLLOW UP 06/07/2019 Patient Education: Celina martinez Patient Savings Message - Lisinopril Completed 06/07/2019 Patient Education: Dilantin Extended- OptimizeRX Coupo n [id number] https://www.[email or web address].Iterasi/samplemd/resources/getResource/61/[email or web address] Completed 06/07/2019 Patient Education: phenobarbital- OptimizeRX Coupon [phone] [id number] https://www.[employer].Iterasi/samplemd/resources/getResource/61/[email or web address]-[email or web address] Completed 06/07/2019 Visit Plan: Mammogram ordered Patient wi ll find out if her mom's colon resection was due to cancer or other reason--discussed that if was from cancer then is due for colonoscopy since should be every 5 years May need pelvic US due to family history of POULTRY KILLER cancers Referral to dermatology for skin check [...] : 719.46 ICD-10 : M25.561 05/03/2019 Appointment: Marzena Schofield WPtel: [address] [place], [place] [phone] NEW PATIENT 05/03/2019 Referral: Sofía More WPtel: [facility] [address] [id number] Referral Initiated Instructions Comment . Mammogram ordered Patient will find out if her mom's colon resection was due to cancer or other reason--discussed that if was from cancer then is due for colonoscopy since should be every 5 years May need pelvic US due to family history of POULTRY KILLER cancers Referral to dermatology for skin check DtaP up to date Flu shot given Medical Equipment No Medical Equipment data Health Concerns Section Health Concerns data not found Goals Section Goals data not found Interventions Section Interventions data not found Health Status Evaluations/Outcomes Section Health Status Evaluations/Outcomes data not found Advance Directives No Advance Directive data
--- OUTSIDE RECORDS SUMMARY | 2019-10-20 22:36 | XMS REPORT | CCD ---
Author Author Clarissa Schofield D.O. 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 Name Role Phone PP Unavailable CCM Unavailable Summary Purpose Interface Exchange Insurance Providers Payer name Policy type / Coverage type Covered alliance party ID Effective Begin Date Effective End Date Blue Cross Blue Shield Blue Cross/Blue Shield [id number] Unknown Family history Mother Diagnosis Age At Onset Dementia Unknown Macular degeneration Unknown Breast cancer Unknown Sister Diagnosis Age At Onset Macular degeneration Unknown Ovarian cancer Unknown Breast cancer Unknown Social History Social History Element Codes Description Effective Dates Marital status Unknown 05/03/2019 Number of children Unknown 3 05/03/2019 Employment Unknown Retired 05/03/[address]: 936261606 Has never smoked or chewed tobacco 05/03/[address]: 110120 Currently drinks alcohol 05/03 Frequency of drinks SNOMED CT: 845769077 Drinks rarely 019 Has the patient ever [...] Problems Condition Codes Effective Dates Condition Status UTI (urinary tract infection) ICD-9: 599.0 ICD-10: N39.0 10/10/2019 Active Pneumonia due to infectious organism ICD-9: 486 ICD-10: J18.9 08/11/2019 Active Essential hypertension ICD-9: 401.9 ICD-10: I10 06/07/2019 Active Sinusitis ICD-9: 473.9 ICD-10: J32.9 06/29/2019 Active Hypertension Unknown 06/07/2019 Active Abnormal mammogram ICD-9: 793.80 ICD-10: R92.8 05/23/2019 Active Elevated blood pressure reading ICD-9: 796.2 ICD-10: R03.0 05/03/2019 Active FLU VACCINE ICD-9: V04.81 ICD-10: Z23 05/03/2019 Active Knee pain, bilateral ICD-9: 719.46 ICD-10: M25.561 05/03/2019 Active Seizure ICD-9: 780.39 ICD-10: R56.9 05/03/2019 Active Medications Medication Codes Instructions Start Date Stop Date Status Fill Instructions Macrobid 100 mg capsule RxNorm: 019761 1 Capsule(s) Oral two ti mes a day 10/10/2019 10/13/2019 Active phenobarbital 32.4 mg tablet RxNorm: 493426 1 Tablet(s) Oral every night at bedtime 10/10/2019 04/07/2020 Active Dilantin Extended 100 mg capsule RxNorm: 293688 1-2 Cap gael(s) Oral every night at bedtime 09/21/2019 03/18/2020 Active albuterol sulfate 2.5 mg/3 mL (0.083 %) solution for n ebulization RxNorm: 000188 1 Unit Dose Inhalation four times a day 08/11/2019 10/10/2019 I nactive Augmentin 500 mg-125 mg tablet RxNorm: 577185 1 Tablet(s) Oral two times a day 08/11/2019 08/18/2019 Inactive doxycycline hyclate 100 mg capsule RxNorm: 2388871 1 Cap gael(s) Oral two times a day 08/01/2019 08/07/2019 Inactive doxycycline hyclate 100 mg capsule RxNorm: 6163344 1 Cap gael(s) Oral two times a day 08/01/2019 07/31/2019 Inactive hydrochlorothiazide 12.5 mg capsule RxNorm: 219508 1 Capsule(s) Oral QAM 07/19/2019 10/17/2019 Active lisinopril 40 mg tablet RxNorm: 928568 1 Tablet(s) Oral QD 07/19/20 19 07/19/2019 Inactive Zithromax Z-Alex 250 mg tablet RxNorm: 160368 Tablet(s) Oral estefany e as directed 06/29/2019 07/18/2019 Inactive lisinopril 40 mg tablet RxNorm: 490434 1 Tablet(s) Oral QD 06/29/20 19 07/18/2019 Inactive Dilantin Extended 100 mg capsule RxNorm: 505715 1-2 Cap gael(s) Oral every night at bedtime 06/07/2019 09/20/2019 Inactive lisinopril 20 mg tablet RxNorm: 769125 1 Tablet(s) Oral QD 06/07/20 19 06/29/2019 Inactive phenobarbital 32.4 mg tablet RxNorm: 807610 1 Tablet(s) Oral every night at bedtime 06/07/2019 09/04/2019 Inactive atorvastatin 10 mg tablet RxNorm: 599655 1 Tablet(s) Oral QD 201811/01/2019 Active atorvastatin 10 mg tablet RxNorm: 375092 1 Tablet(s) Oral QD 201805/05/2019 Inactive Zyrtec 10 mg tablet RxNorm: 0358964 1 Tablet(s) Oral QAM 05/03/2019 No Stop Date Active Fish Oil 1,000 mg (120 mg-180 mg) capsule RxNorm: 1 Caps ule(s) Oral QD 05/03/2019 No Stop Date Active Vitamin D3 5,000 unit tablet RxNorm: 687950 1 Tablet(s) Oral QD No Stop Date Active Centrum 18 mg-400 mcg tablet RxNorm: 1 Tablet(s) Oral QD 05/03 No Stop Date Active Dilantin Extended 100 mg capsule RxNorm: 771361 1-2 Cap gael(s) Oral every night at bedtime 05/03/2019 06/06/2019 Inactive phenobarbital 32.4 mg tablet RxNorm: 175816 1 Tablet(s) Oral every night at bedtime 05/03/2019 06/06/2019 Inactive Medication Administered No Medication Administered data Immunizations Vaccine Codes Date Status Influenza CVX: 141 05/03/2019 Complete Influenza CVX: 141 05/03/2019 Complete Results No Results data Procedures Procedure Codes Date URINALYSIS NONAUTO W/O SCOPE CPT-4: 02837 10/10/2019 THER/PROPH/DIAG INJ SC/IM CPT-4: 03383 10/10/2019 CEFTRIAXONE SODIUM INJECTION CPT-4: J0696 10/10/2019 THER/PROPH/DIAG INJ SC/IM CPT-4: 70470 10/10/2019 URINE CULTURE/ COLONY COUNT CPT-4: 58471 10/10/2019 THER/PROPH/DIAG INJ SC/IM CPT-4: 32490 08/11/2019 TRIAMCINOLONE ACET INJ NOS CPT-4: J3301 08/11/2019 CEFTRIAXONE SODIUM INJECTION CPT-4: J0696 08/11/2019 THER/PROPH/DIAG INJ SC/IM CPT-4: 28236 08/11/2019 IIV4 VACC NO PRSV 6 MTHS TO 64 YRS+ IM CPT-4: 63821 05/03/2019 IIV4 VACC NO PRSV 6 MTHS TO 64 YRS+ IM CPT-4: 58545 05/03/2019 IMMUNIZATION ADMIN CPT-4: 58093 05/03/2019 Vital Signs Date Vital 10/10/2019 Blood Pressure 1: 144/79 Code: 8480-6 [...] 1: 146/92 Code: 8480-6 BMI: 32.3 Code: 56878-6 Heart Rate 1: 72 bpm Height: 5'6" Respiratory Rate: 18 bpm SpO2: 98% Tempera ture: 36.8 (C) / 98.2 (F) Weight: 203 lbs Functional Status No Functional Status data Reason For Visit Reason For Visit Effective Dates Notes urinary retention/hesitancy 10/10/2019 follow up 08/11/2019 blood pressure check 07/19/2019 high blood pressure 06/29/2019 high blood pressure 06/07/2019 ~generic 05/03/2019 New Patient--[facility] care Encounters Encounter Performer Location Codes Date ([id number]) OFFICE/OUTPATIENT VISIT EST Diagnosis: UTI (urinary tract infection)[ICD10: N39.0] Brittney LOZALINE CharletteMitch [employer] [facility] CPT-4: 50103 10/10/2019 ([id number]) OFFICE/OUTPATIENT VISIT EST Diagnosis: Pneumonia due to infectious organism[ICD10: J18.9] Viraj Juan Pablojaye CALI CharletteMitch [employer] [facility] CPT-4: 44638 08/11/2019 ([id number]) OFFICE/OUTPATIENT VISIT EST Diagnosis: Essential hypertension[ICD10: I10] Diagnosis: Sinusitis[ICD10: J32.9] Brittney LOZALINE JustSpottedMitch [employer] CPT-4: 24365 06/29/2019 ([id number]) OFFICE/OUTPATIENT VISIT EST Diagnosis: Essential hypertension[ICD10: I10] Viraj Juan Pablojaye MOON JustSpottedMitch [employer] [facility] CPT-4: 91342 06/07/2019 OFFICE/OUTPATIENT VISIT NEW Diagnosis: FLU VACCINE[ICD10: Z23] Diagnosis: Seizure[ICD10: R56.9] Diagnosis: Knee pain, bilateral[ICD10: M25.561] Diagnosis: Elevated blood pressure reading[ICD10: R03.0] Viarj Schofield VIRAJ JustSpottedMitch [employer] [facility] CPT-4: 72397 05/03/2019 Plan of Care Planned Activity Notes Codes Status Date Visit Diagnosis Plan: UTI (urinary tract infection) Di scussion: due to severity of uti and length, rocephin 1 gm given in office. macrobid to take as directed to start tomorrow. push fluids. will send off for culture. to start probiotic daily. ICD-9 : 599.0 ICD-10 : N39.0 10/10/2019 Visit Diagnosis Plan: Pneumonia due to infectious orga nism Discussion: Rocephin 1gm IM and Kenalog 40mg IM Start augementin tomorrow with probiotic BID Start SVNS with albuterol TID to QID Call tomorrow if needs seen or to ER this weekend if worsening ICD-9 : 486 ICD-10 : J18.9 08/11/2019 Appointment: Viraj Schofield WPtel: [address] [place] [address] ACUTE ILLNESS 08/11/2019 Appointment: Viraj Schofield WPtel: [address] [place] [address] BP CHECK 07/19/2019 Visit Diagnosis Plan: Essential [...] 473.9 ICD-10 : J32.9 06/29/2019 Appointment: Viraj Schofieldtel: [address] [place], [place] [address] BP CHECK 06/29/2019 Appointment: Brittney Triana [address] [place] [address] ACUTE ILLNESS 06/29/2019 Patient Education: [facility] juan Patient Savings Message - Lisinopril Completed 06/29/2019 Patient Education: High Blood Pressure Co mpleted 06/29/2019 Appointment: Viraj Schofield WPtel: [address] [place] [address] did not need appt. Only to come in for BP 3 weeks from prevayde vazquezs patient. CANCELED 06/28/2019 Visit Diagnosis Plan: Essential hypertension Discussio n: Start lisinopril 20mg daily Monitor home BP Return in 3 weeks for BP check with home readings as well as home cuff ICD-9 : 401.9 ICD-10 : I10 06/07/2019 Appointment: Viraj Schofield WPtel: [address] [facility] FOLLOW UP 06/07/2019 Patient Education: [facility] Doshi juan Patient Savings Message - Lisinopril Completed 06/07/2019 Patient Education: Dilantin Extended- OptimizeRX Coupo n [id number] [email or web address]/resources/getResource/[email or web address] Completed 06/07/2019 Patient Education: phenobarbital- OptimizeRX Coupon 85 [id number] [email or web address]/resources/getResource/[email or web address] Completed 06/07/2019 Visit Plan: Mammogram ordered Patient wi ll find out if her mom's colon resection was due to cancer or other reason--discussed that if was from cancer then is due for colonoscopy since should be every 5 years May need pelvic US due to family history of STAFFING RECRUITER cancers Referral to dermatology for skin check [...] M25.561 05/03/2019 Appointment: Viraj Schofield WPtel: [address] [facility] [place] NEW PATIENT 05/03/2019 Referral: Sofía More WPtel: [facility] [address] [facility] [place] Referral Initiated Instructions Comment . Mammogram ordered Patient will find out if her mom's colon resection was due to cancer or other reason--discussed that if was from cancer then is due for colonoscopy since should be every 5 years May need pelvic US due to family history of STAFFING RECRUITER cancers Referral to dermatology for skin check DtaP up to date Flu shot given Medical Equipment No Medical Equipment data Health Concerns Section Health Concerns data not found Goals Section Goals data not found Interventions Section Interventions data not found Health Status Evaluations/Outcomes Section Health Status Evaluations/Outcomes data not found Advance Directives No Advance Directive data
--- OUTSIDE RECORDS SUMMARY | 2019-10-20 22:36 | XMS REPORT | CCD ---
Author Author Clarissa Schofield D.O. Organization VIRAJ SCHOFIELD DO [facility] Address [address] [place] [address] Phone Care Team Providers Care Director Employee Safety And Health Name Role Phone PP Unavailable CCM Unavailable Summary Purpose Interface Exchange Insurance Providers Payer name Policy type / Coverage type Covered alliance party ID Effective Begin Date Effective End Date Blue Cross Blue Shield Blue Cross/Blue Shield [id number] Unknown Family history Mother Diagnosis Age At Onset Dementia Unknown Macular degeneration Unknown Breast cancer Unknown Sister Diagnosis Age At Onset Macular degeneration Unknown Ovarian cancer Unknown Breast cancer Unknown Social History Social History Element Codes Description Effective Dates Marital status Unknown 05/03/2019 Number of children Unknown 3 05/03/2019 Employment Unknown Retired 05/03/[address]: 501045395 Has never smoked or chewed tobacco 05/03/[address]: 202275 Currently drinks alcohol 05/03 Frequency of drinks SNOMED CT: 561991088 Drinks rarely 019 Has the patient ever [...] Fill Instructions lisinopril 40 mg tablet RxNorm: 366686 1 Tablet(s) Oral QD 10/18/1910/18/2019 Inactive Bactrim DS 800 mg-160 mg tablet RxNorm: 608935 1 Tablet(s) Oral two times a day 10/18/2019 10/28/2019 Active phenobarbital 32.4 mg tablet RxNorm: 231858 1 Tablet(s) Oral every night at bedtime 10/10/2019 04/07/2020 Active Macrobid 100 mg capsule RxNorm: 361643 1 Capsule(s) Oral two ti mes a day 10/10/2019 10/13/2019 Inactive Dilantin Extended 100 mg capsule RxNorm: 897022 1-2 Cap gael(s) Oral every night at bedtime 09/21/2019 03/18/2020 Active albuterol sulfate 2.5 mg/3 mL (0.083 %) solution for n ebulization RxNorm: 342418 1 Unit Dose Inhalation four times a day 08/11/2019 10/10/2019 I nactive Augmentin 500 mg-125 mg tablet RxNorm: 681325 1 Tablet(s) Oral two times a day 08/11/2019 08/18/2019 Inactive doxycycline hyclate 100 mg capsule RxNorm: 3254357 1 Cap gael(s) Oral two times a day 08/01/2019 08/07/2019 Inactive doxycycline hyclate 100 mg capsule RxNorm: 9378135 1 Cap gael(s) Oral two times a day 08/01/2019 07/31/2019 Inactive hydrochlorothiazide 12.5 mg capsule RxNorm: 664094 1 Capsule(s) Oral QAM 07/19/2019 10/17/2019 Inactive lisinopril 40 mg tablet RxNorm: 768607 1 Tablet(s) Oral QD 07/19/2007/19/2019 Inactive Zithromax Z-Alex 250 mg tablet RxNorm: 228186 Tablet(s) Oral estefany e as directed 06/29/2019 07/18/2019 Inactive lisinopril 40 mg tablet RxNorm: 831468 1 Tablet(s) Oral QD 06/29/20 19 07/18/2019 Inactive Dilantin Extended 100 mg capsule RxNorm: 019354 1-2 Cap gael(s) Oral every night at bedtime 06/07/2019 09/20/2019 Inactive lisinopril 20 mg tablet RxNorm: 662338 1 Tablet(s) Oral QD 06/07/20 19 06/29/2019 Inactive phenobarbital 32.4 mg tablet RxNorm: 207606 1 Tablet(s) Oral every night at bedtime 06/07/2019 09/04/2019 Inactive atorvastatin 10 mg tablet RxNorm: 681118 1 Tablet(s) Oral QD 201811/01/2019 Active atorvastatin 10 mg tablet RxNorm: 279336 1 Tablet(s) Oral QD 201805/05/2019 Inactive Zyrtec 10 mg tablet RxNorm: 9580504 1 Tablet(s) Oral QAM 05/03/2019 No Stop Date Active Fish Oil 1,000 mg (120 mg-180 mg) capsule RxNorm: 1 Caps ule(s) Oral QD 05/03/2019 No Stop Date Active Vitamin D3 5,000 unit tablet RxNorm: 028854 1 Tablet(s) Oral QD No Stop Date Active Centrum 18 mg-400 mcg tablet RxNorm: 1 Tablet(s) Oral QD 05/03 No Stop Date Active Dilantin Extended 100 mg capsule RxNorm: 812845 1-2 Cap gael(s) Oral every night at bedtime 05/03/2019 06/06/2019 Inactive phenobarbital 32.4 mg tablet RxNorm: 683541 1 Tablet(s) Oral every night at bedtime 05/03/2019 06/06/2019 Inactive Medication Administered No Medication Administered data Immunizations Vaccine Codes Date Status Influenza CVX: 141 05/03/2019 Complete Influenza CVX: 141 05/03/2019 Complete Results Observation Observation Code Item Item Code Result Date S [facility] Location COMPLETE BLOOD COUNT [id number] WBC 12.2 10e9/L 020 Unknown COMPLETE BLOOD COUNT [id number] RBC 3.86 10e12/L 2019 Unknown COMPLETE BLOOD COUNT [id number] HEMOGLOBIN 11.4 g/dL 10/18/19 20 Unknown COMPLETE BLOOD COUNT [id number] HEMATOCRIT 34.3 % 10/18/19 20 Unknown COMPLETE BLOOD COUNT [id number] MCV 88.9 fL 0 Unknown COMPLETE BLOOD COUNT [id number] MCH 29.5 pg 0 Unknown COMPLETE BLOOD COUNT 1700746 MCHC 33.2 g/dL 0 Unknown COMPLETE BLOOD COUNT [id number] PLATELET COUNT 495 10e9/L 05/2020 Unknown COMPLETE BLOOD COUNT [id number] Mean Plt Volume 8.9 fL 05/2020 Unknown COMPLETE BLOOD COUNT [id number] Neut Auto 74.8 % 0 Unknown COMPLETE BLOOD COUNT [id number] Lymph Auto 11.9 % 10/18/19 20 Unknown COMPLETE BLOOD COUNT [id number] Kinney Auto 7.5 % 0 Unknown COMPLETE BLOOD COUNT 0521037 RDW 13.8 % 0 Unknown COMPLETE BLOOD COUNT [id number] Eos Auto 5.3 % 0 Unknown COMPLETE BLOOD COUNT 9397029 Baso Auto 0.5 % 0 Unknown COMPLETE BLOOD COUNT 7141104 Neutrophil Abs 9.13 10e9/L Unknown COMPLETE BLOOD COUNT 8725530 Lymphocyte Abs 1.45 10e9/L Unknown COMPLETE BLOOD COUNT [id number] Monocyte Abs 0.92 10e9/L 10/08 Unknown COMPLETE BLOOD COUNT 6863596 Eosinophil Abs 0.65 10e9/L Unknown COMPLETE BLOOD COUNT [id number] RDW-SD 44.0 fL 0 Unknown COMPLETE BLOOD COUNT [id number] Basophil Abs 0.06 10e9/L 10/08 Unknown Procedures Procedure Codes Date URINE CULTURE/ COLONY COUNT CPT-4: 28071 10/18/2019 COMPLETE CBC W/AUTO DIFF WBC CPT-4: 67987 10/18/2019 COMPREHEN METABOLIC PANEL CPT-4: 88295 10/18/2019 ASSAY OF PHENYTOIN TOTAL CPT-4: 07179 10/18/2019 ASSAY OF PHENOBARBITAL CPT-4: 61879 10/18/2019 URINALYSIS NONAUTO W/O SCOPE CPT-4: 45486 10/10/2019 THER/PROPH/DIAG INJ SC/IM CPT-4: 68798 10/10/2019 CEFTRIAXONE SODIUM INJECTION CPT-4: J0696 10/10/2019 URINE CULTURE/ COLONY COUNT CPT-4: 51031 10/10/2019 THER/PROPH/DIAG INJ SC/IM CPT-4: 75730 08/11/2019 TRIAMCINOLONE ACET INJ NOS CPT-4: J3301 08/11/2019 CEFTRIAXONE SODIUM INJECTION CPT-4: J0696 08/11/2019 THER/PROPH/DIAG INJ SC/IM CPT-4: 20616 08/11/2019 IIV4 VACC NO PRSV 6 MTHS TO 64 YRS+ IM CPT-4: 37305 05/03/2019 IIV4 VACC NO PRSV 6 MTHS TO 64 YRS+ IM CPT-4: 30059 05/03/2019 IMMUNIZATION ADMIN CPT-4: 12203 05/03/2019 Vital Signs Date Vital 10/18/2019 Blood [...] 1: 146/92 Code: 8480-6 BMI: 32.3 Code: 43329-8 Heart Rate 1: 72 bpm Height: 5'6" Respiratory Rate: 18 bpm SpO2: 98% Tempera ture: 36.8 (C) / 98.2 (F) Weight: 203 lbs Functional Status No Functional Status data Reason For Visit Reason For Visit Effective Dates Notes fatigue 10/18/2019 urinary retention/hesitancy 10/10/2019 follow up 08/11/2019 blood pressure check 07/19/2019 high blood pressure 06/29/2019 high blood pressure 06/07/2019 ~generic 05/03/2019 New Patient--[facility] Encounters Encounter Performer Location Codes Date () OFFICE/OUTPATIENT VISIT EST Diagnosis: Essential hypertension[ICD10: I10] Diagnosis: Seizure[ICD10: R56.9] Diagnosis: UTI (urinary tract infection)[ICD10: N39.0] Diagnosis: Fatigue[ICD10: R53.83] Diagnosis: Weakness[ICD10: R53.1] Brittney Wilsoncaty SCHOFIELD DO [facility] CPT-4: 81215 10/18/2019 ([id number]) OFFICE/OUTPATIENT VISIT EST Diagnosis: UTI (urinary tract infection)[ICD10: N39.0] Brittney Wilsoncaty CALI SMitch [employer] CPT-4: 33186 10/10/2019 ([id number]) OFFICE/OUTPATIENT VISIT EST Diagnosis: Pneumonia due to infectious organism[ICD10: J18.9] Viraj CALI SMitch [employer] CPT-4: 39150 08/11/2019 ([id number]) OFFICE/OUTPATIENT VISIT EST Diagnosis: Essential hypertension[ICD10: I10] Diagnosis: Sinusitis[ICD10: J32.9] Brittney Wilsoncaty DAVEY DO [facility] CPT-4: 16813 06/29/2019 ([id number]) OFFICE/OUTPATIENT VISIT EST Diagnosis: Essential hypertension[ICD10: I10] Viraj SCHOFIELD DO [employer] CPT-4: 56462 06/07/2019 OFFICE/OUTPATIENT VISIT NEW Diagnosis: FLU VACCINE[ICD10: Z23] Diagnosis: Seizure[ICD10: R56.9] Diagnosis: Knee pain, bilateral[ICD10: M25.561] Diagnosis: Elevated blood pressure reading[ICD10: R03.0] Viraj SCHOFIELD DO [employer] CPT-4: 07231 05/03/2019 Plan of Care Planned Activity Notes [...] R53.83 10/18/2019 Patient Education: lisinopril- OptimizeRX Coupon [id number] https://www.[employer]/samplemd/resources/getResource/61/[email or web address]-nz Completed 10/18/2019 Patient Education: High Blood Pressure [...] ICD-10 : N39.0 10/10/2019 Appointment: Brittney Triana [address] [place] [address] ACUTE ILLNESS 10/10/2019 Visit Diagnosis Plan: Pneumonia due to infectious orga nism Discussion: Rocephin 1gm IM and Kenalog 40mg IM Start augementin tomorrow with probiotic BID Start SVNS with albuterol TID to QID Call tomorrow if needs seen or to ER this weekend if worsening ICD-9 : 486 ICD-10 : J18.9 08/11/2019 Appointment: Viraj Schofield WPtel: [address] [place] [address] ACUTE ILLNESS 08/11/2019 Appointment: Viraj Schofield WPtel: [address] [place] [address] BP CHECK 07/19/2019 Visit Diagnosis Plan: Essential [...] : J32.9 06/29/2019 Appointment: Viraj Schofield WPtel: [address] [place] [address] BP CHECK 06/29/2019 Appointment: Brittney Triana [address] [place] [address] ACUTE ILLNESS 06/29/2019 Patient Education: [facility] juan Patient Savings Message - Lisinopril Completed 06/29/2019 Patient Education: High Blood Pressure Co mpleted 06/29/2019 Appointment: Virja Schofield WPtel: [address] [place] [address] US did not need appt. Only to come in for BP 3 weeks from previ ous patient. CANCELED 06/28/2019 Visit Diagnosis Plan: Essential hypertension Discussio n: Start lisinopril 20mg daily Monitor home BP Return in 3 weeks for BP check with home readings as well as home cuff ICD-9 : 401.9 ICD-10 : I10 06/07/2019 App[facility]ment: [id number] FOLLOW UP 06/07/2019 [facility]: [facility] Patient Savings Message - Lisinopril Completed 06/07/2019 Patient Education: Dilantin Extended- OptimizeRX Coupo n [id number] https://www.[employer]/sampleG[place]/resources/getResource/61/[email or web address]-5799-63 Completed 06/07/2019 Patient Education: phenobarbital- OptimizeRX Coupon 85 [id number] https://www.[employer]/Typemock/resources/getResource/61/1110774o-6494-2jxe-g6 Completed 06/07/2019 Visit Plan: Mammogram ordered Patient wi ll find out if her mom's colon resection was due to cancer or other reason--discussed that if was from cancer then is due for colonoscopy since should be every 5 years May need pelvic US due to 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 Mammogram ordered Patient will find out if her mom's colon resection was due to cancer or other reason--discussed that if was from cancer then is due for colonoscopy since should be every 5 years May need pelvic US due to family history of DENTISTRY PROFESSOR cancers Referral to dermatology for skin check DtaP up to date Flu shot given Medical Equipment No Medical Equipment data Health Concerns Section Health Concerns data not found Goals Section Goals data not found Interventions Section Interventions data not found Health Status Evaluations/Outcomes Section Health Status Evaluations/Outcomes data not found Advance Directives No Advance Directive data
--- OUTSIDE RECORDS SUMMARY | 2019-10-20 22:36 | XMS REPORT | CCD ---
Author Author Clarissa Schofield D.O. Organization VIRAJ SCHOFIELD DO [facility] Address [address] [place] [address] Phone Care Team Providers Care Book Coverer Name Role Phone PP Unavailable CCM Unavailable Summary Purpose Interface Exchange Insurance Providers Payer name Policy type / Coverage type Covered green party ID Effective Begin Date Effective End Date Blue Cross Blue Shield Blue Cross/Blue Shield [id number] Unknown Family history Mother Diagnosis Age At Onset Dementia Unknown Macular degeneration Unknown Breast cancer Unknown Sister Diagnosis Age At Onset Macular degeneration Unknown Ovarian cancer Unknown Breast cancer Unknown Social History Social History Element Codes Description Effective Dates Marital status Unknown 05/03/2019 Number of children Unknown 3 05/03/2019 Employment Unknown Retired 05/03/[address]: 325756761 Has never smoked or chewed tobacco 05/03/[address]: 495322 Currently drinks alcohol 05/03 Frequency of drinks SNOMED CT: 324408272 Drinks rarely 019 Has the patient ever [...] Fill Instructions lisinopril 40 mg tablet RxNorm: 217018 1 Tablet(s) Oral QD 10/18/1910/18/2019 Inactive Bactrim DS 800 mg-160 mg tablet RxNorm: 458145 1 Tablet(s) Oral two times a day 10/18/2019 10/28/2019 Active phenobarbital 32.4 mg tablet RxNorm: 569372 1 Tablet(s) Oral every night at bedtime 10/10/2019 04/07/2020 Active Macrobid 100 mg capsule RxNorm: 374929 1 Capsule(s) Oral two ti mes a day 10/10/2019 10/13/2019 Inactive Dilantin Extended 100 mg capsule RxNorm: 181870 1-2 Cap gael(s) Oral every night at bedtime 09/21/2019 03/18/2020 Active albuterol sulfate 2.5 mg/3 mL (0.083 %) solution for n ebulization RxNorm: 404082 1 Unit Dose Inhalation four times a day 08/11/2019 10/10/2019 I nactive Augmentin 500 mg-125 mg tablet RxNorm: 028873 1 Tablet(s) Oral two times a day 08/11/2019 08/18/2019 Inactive doxycycline hyclate 100 mg capsule RxNorm: 9883764 1 Cap gael(s) Oral two times a day 08/01/2019 08/07/2019 Inactive doxycycline hyclate 100 mg capsule RxNorm: 8269466 1 Cap gael(s) Oral two times a day 08/01/2019 07/31/2019 Inactive hydrochlorothiazide 12.5 mg capsule RxNorm: 921507 1 Capsule(s) Oral QAM 07/19/2019 10/17/2019 Inactive lisinopril 40 mg tablet RxNorm: 400987 1 Tablet(s) Oral QD 07/19/2007/19/2019 Inactive Zithromax Z-Alex 250 mg tablet RxNorm: 531546 Tablet(s) Oral estefany e as directed 06/29/2019 07/18/2019 Inactive lisinopril 40 mg tablet RxNorm: 883027 1 Tablet(s) Oral QD 06/29/20 19 07/18/2019 Inactive Dilantin Extended 100 mg capsule RxNorm: 702414 1-2 Cap gael(s) Oral every night at bedtime 06/07/2019 09/20/2019 Inactive lisinopril 20 mg tablet RxNorm: 805206 1 Tablet(s) Oral QD 06/07/20 19 06/29/2019 Inactive phenobarbital 32.4 mg tablet RxNorm: 156115 1 Tablet(s) Oral every night at bedtime 06/07/2019 09/04/2019 Inactive atorvastatin 10 mg tablet RxNorm: 360696 1 Tablet(s) Oral QD 201811/01/2019 Active atorvastatin 10 mg tablet RxNorm: 344389 1 Tablet(s) Oral QD 201805/05/2019 Inactive Zyrtec 10 mg tablet RxNorm: 8077664 1 Tablet(s) Oral QAM 05/03/2019 No Stop Date Active Fish Oil 1,000 mg (120 mg-180 mg) capsule RxNorm: 1 Caps ule(s) Oral QD 05/03/2019 No Stop Date Active Vitamin D3 5,000 unit tablet RxNorm: 384130 1 Tablet(s) Oral QD No Stop Date Active Centrum 18 mg-400 mcg tablet RxNorm: 1 Tablet(s) Oral QD 05/03 No Stop Date Active Dilantin Extended 100 mg capsule RxNorm: 326640 1-2 Cap gael(s) Oral every night at bedtime 05/03/2019 06/06/2019 Inactive phenobarbital 32.4 mg tablet RxNorm: 578961 1 Tablet(s) Oral every night at bedtime 05/03/2019 06/06/2019 Inactive Medication Administered No Medication Administered data Immunizations Vaccine Codes Date Status Influenza CVX: 141 05/03/2019 Complete Influenza CVX: 141 05/03/2019 Complete Results Observation Observation Code Item Item Code Result Date S [facility] Location COMPLETE BLOOD COUNT [id number] WBC 12.2 10e9/L 020 Unknown COMPLETE BLOOD COUNT [id number] RBC 3.86 10e12/L 2019 Unknown COMPLETE BLOOD COUNT 3611184 HEMOGLOBIN 11.4 g/dL 10/18/19 20 Unknown COMPLETE BLOOD COUNT [id number] HEMATOCRIT 34.3 % 10/18/19 20 Unknown COMPLETE BLOOD COUNT 6273370 MCV 88.9 fL 0 Unknown COMPLETE BLOOD COUNT [id number] MCH 29.5 pg 0 Unknown COMPLETE BLOOD COUNT 5976977 MCHC 33.2 g/dL 0 Unknown COMPLETE BLOOD COUNT 5109036 PLATELET COUNT 495 10e9/L 05/2020 Unknown COMPLETE BLOOD COUNT 2170680 Mean Plt Volume 8.9 fL 05/2020 Unknown COMPLETE BLOOD COUNT 7961191 Neut Auto 74.8 % 0 Unknown COMPLETE BLOOD COUNT 1624662 Lymph Auto 11.9 % 10/18/19 20 Unknown COMPLETE BLOOD COUNT 0154914 Kleberg Auto 7.5 % 0 Unknown COMPLETE BLOOD COUNT 8700606 RDW 13.8 % 0 Unknown COMPLETE BLOOD COUNT 7798617 Eos Auto 5.3 % 0 Unknown COMPLETE BLOOD COUNT 8681336 Baso Auto 0.5 % 0 Unknown COMPLETE BLOOD COUNT 0931962 Neutrophil Abs 9.13 10e9/L Unknown COMPLETE BLOOD COUNT 8486119 Lymphocyte Abs 1.45 10e9/L Unknown COMPLETE BLOOD COUNT 5489521 Monocyte Abs 0.92 10e9/L 10/08 Unknown COMPLETE BLOOD COUNT 0257648 Eosinophil Abs 0.65 10e9/L Unknown COMPLETE BLOOD COUNT 2740777 RDW-SD 44.0 fL 0 Unknown COMPLETE BLOOD COUNT 7736324 Basophil Abs 0.06 10e9/L 10/08 Unknown Procedures Procedure Codes Date URINALYSIS NONAUTO W/O SCOPE CPT-4: 99524 10/10/2019 THER/PROPH/DIAG INJ SC/IM CPT-4: 24858 10/10/2019 CEFTRIAXONE SODIUM INJECTION CPT-4: J0696 10/10/2019 URINE CULTURE/ COLONY COUNT CPT-4: 41262 10/10/2019 THER/PROPH/DIAG INJ SC/IM CPT-4: 85718 08/11/2019 TRIAMCINOLONE ACET INJ NOS CPT-4: J3301 08/11/2019 CEFTRIAXONE SODIUM INJECTION CPT-4: J0696 08/11/2019 THER/PROPH/DIAG INJ SC/IM CPT-4: 35968 08/11/2019 IIV4 VACC NO PRSV 6 MTHS TO 64 YRS+ IM CPT-4: 68819 05/03/2019 IIV4 VACC NO PRSV 6 MTHS TO 64 YRS+ IM CPT-4: 86614 05/03/2019 IMMUNIZATION ADMIN CPT-4: 00434 05/03/2019 Vital Signs Date Vital 10/10/2019 Blood [...] 1: 146/92 Code: 8480-6 BMI: 32.3 Code: 64516-4 Heart Rate 1: 72 bpm Height: 5'6" [...] care Encounters Encounter Performer Location Codes Date () OFFICE/OUTPATIENT VISIT EST Diagnosis: UTI (urinary tract infection)[ICD10: N39.0] Brittney LOZALINE S. JUAN PABLONDER [employer] CPT-4: 70467 10/10/2019 ([id number]) OFFICE/OUTPATIENT VISIT EST Diagnosis: Pneumonia due to infectious organism[ICD10: J18.9] Viraj Juan Pablojaye CALI SMitch JUAN PABLONDER [employer] CPT-4: 43462 08/11/2019 ([id number]) OFFICE/OUTPATIENT VISIT EST Diagnosis: Essential hypertension[ICD10: I10] Diagnosis: Sinusitis[ICD10: J32.9] Brittney LOZALINE S. JUAN PABLOND ER [employer] CPT-4: 00265 06/29/2019 ([id number]) OFFICE/OUTPATIENT VISIT EST Diagnosis: Essential hypertension[ICD10: I10] Viraj Juan Pablojaye MOON S. JUAN PABLONDER [employer] CPT-4: 42360 06/07/2019 OFFICE/OUTPATIENT VISIT NEW Diagnosis: FLU VACCINE[ICD10: Z23] Diagnosis: Seizure[ICD10: R56.9] Diagnosis: Knee pain, bilateral[ICD10: M25.561] Diagnosis: Elevated blood pressure reading[ICD10: R03.0] Viraj Juan Pablojaye CALI S. JUAN PABLONDER [employer] CPT-4: 11434 05/03/2019 Plan of Care Planned Activity Notes [...] : N39.0 10/10/2019 Appointment: Brittney Triana [address] [place] [address] ACUTE ILLNESS 10/10/2019 Visit Diagnosis Plan: Pneumonia due to infectious orga nism Discussion: Rocephin 1gm IM and Kenalog 40mg IM Start augementin tomorrow with probiotic BID Start SVNS with albuterol TID to QID Call tomorrow if needs seen or to ER this weekend if worsening ICD-9 : 486 ICD-10 : J18.9 08/11/2019 Appointment: Viraj Schofield WPtel: [address] [place] [address] ACUTE ILLNESS 08/11/2019 Appointment: Viraj Schofield WPtel: [address] [place] [address] BP CHECK 07/19/2019 Visit Diagnosis Plan: Essential [...] : J32.9 06/29/2019 Appointment: Viraj Schofield WPtel: [address] [place], [place] [id number] BP CHECK 06/29/2019 Appointment: Brittney Triana [address] [place] [address] ACUTE ILLNESS 06/29/2019 [facility]: [facility] Patient Savings Message - Lisinopril Completed 06/29/2019 Patient Education: High Blood Pressure Co mpleted 06/29/2019 Appointment: Viraj Schofield [facility]Ptel[facility] [phone] [id number] [place] did not need appt. Only to come in for BP 3 weeks from jovan menezes patient. CANCELED 06/28/2019 Visit Diagnosis Plan: Essential hypertension Discussio n: Start lisinopril 20mg daily Monitor home BP Return in 3 weeks for BP check with home readings as well as home cuff ICD-9 : 401.9 ICD-10 : I10 06/07/2019 Appointment: Viraj Schofield [facility]Ptel[facility] [address] [id number] [place] FOLLOW UP 06/07/2019 Patient Education: [employer] Kleber martinez Patient Savings Message - Lisinopril Completed 06/07/2019 Patient Education: Dilantin Extended- Opt[employer] Coupo n [id number] https://www.[employer]/resources/getResource/61/[email or web address]-2452-89 Completed 06/07/2019 Patient Education: phenobarbital- OptimizeRX Coupon 85 [id number] https://www.[employer]/resources/getResource/61/6960215z-3073-9ack-s1 Completed 06/07/2019 Visit Plan: Mammogram ordered Patient wi ll find out if her mom's colon resection was due to cancer or other reason--discussed that if was from cancer then is due for colonoscopy since should be every 5 years May need pelvic US due 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 Mammogram ordered Patient will find out if her mom's colon resection was due to cancer or other reason--discussed that if was from cancer then is due for colonoscopy since should be every 5 years May need pelvic US due to family history of TECHNICAL ENGINEER cancers Referral to dermatology for skin check DtaP up to date Flu shot given Medical Equipment No Medical Equipment data Health Concerns Section Health Concerns data not found Goals Section Goals data not found Interventions Section Interventions data not found Health Status Evaluations/Outcomes Section Health Status Evaluations/Outcomes data not found Advance Directives No Advance Directive data
--- OUTSIDE RECORDS SUMMARY | 2019-10-20 22:36 | XMS REPORT | CCD ---
Author Author Clarissa Schofield D.O. Organization VIRAJ SCHOFIELD DO [facility] Address [address] [place] [address] Phone Care Team Providers Care Slag Skimmer Name Role Phone PP Unavailable CCM Unavailable Summary Purpose Interface Exchange Insurance Providers Payer name Policy type / Coverage type Covered democrat ID Effective Begin Date Effective End Date Blue Cross Blue Shield Blue Cross/Blue Shield [id number] Unknown Family history Mother Diagnosis Age At Onset Dementia Unknown Macular degeneration Unknown Breast cancer Unknown Sister Diagnosis Age At Onset Macular degeneration Unknown Ovarian cancer Unknown Breast cancer Unknown Social History Social History Element Codes Description Effective Dates Marital status Unknown 05/03/2019 Number of children Unknown 3 05/03/2019 Employment Unknown Retired 05/03/[address]: 224936670 Has never smoked or chewed tobacco 05/03/[address]: 830270 Currently drinks alcohol 05/03 Frequency of drinks SNOMED CT: 492545432 Drinks rarely 019 Has the patient ever [...] Fill Instructions lisinopril 40 mg tablet RxNorm: 947573 1 Tablet(s) Oral QD 10/18/1910/18/2019 Inactive Bactrim DS 800 mg-160 mg tablet RxNorm: 414463 1 Tablet(s) Oral two times a day 10/18/2019 10/28/2019 Active phenobarbital 32.4 mg tablet RxNorm: 506294 1 Tablet(s) Oral every night at bedtime 10/10/2019 04/07/2020 Active Macrobid 100 mg capsule RxNorm: 907014 1 Capsule(s) Oral two ti mes a day 10/10/2019 10/13/2019 Inactive Dilantin Extended 100 mg capsule RxNorm: 815094 1-2 Cap gael(s) Oral every night at bedtime 09/21/2019 03/18/2020 Active albuterol sulfate 2.5 mg/3 mL (0.083 %) solution for n ebulization RxNorm: 003385 1 Unit Dose Inhalation four times a day 08/11/2019 10/10/2019 I nactive Augmentin 500 mg-125 mg tablet RxNorm: 238546 1 Tablet(s) Oral two times a day 08/11/2019 08/18/2019 Inactive doxycycline hyclate 100 mg capsule RxNorm: 7347156 1 Cap gael(s) Oral two times a day 08/01/2019 08/07/2019 Inactive doxycycline hyclate 100 mg capsule RxNorm: 3975839 1 Cap gael(s) Oral two times a day 08/01/2019 07/31/2019 Inactive hydrochlorothiazide 12.5 mg capsule RxNorm: 776955 1 Capsule(s) Oral QAM 07/19/2019 10/17/2019 Inactive lisinopril 40 mg tablet RxNorm: 932943 1 Tablet(s) Oral QD 07/19/2007/19/2019 Inactive Zithromax Z-Alex 250 mg tablet RxNorm: 381459 Tablet(s) Oral estefany e as directed 06/29/2019 07/18/2019 Inactive lisinopril 40 mg tablet RxNorm: 976072 1 Tablet(s) Oral QD 06/29/20 19 07/18/2019 Inactive Dilantin Extended 100 mg capsule RxNorm: 330358 1-2 Cap gael(s) Oral every night at bedtime 06/07/2019 09/20/2019 Inactive lisinopril 20 mg tablet RxNorm: 084369 1 Tablet(s) Oral QD 06/07/20 19 06/29/2019 Inactive phenobarbital 32.4 mg tablet RxNorm: 743854 1 Tablet(s) Oral every night at bedtime 06/07/2019 09/04/2019 Inactive atorvastatin 10 mg tablet RxNorm: 849041 1 Tablet(s) Oral QD 201811/01/2019 Active atorvastatin 10 mg tablet RxNorm: 351822 1 Tablet(s) Oral QD 201805/05/2019 Inactive Zyrtec 10 mg tablet RxNorm: 1957117 1 Tablet(s) Oral QAM 05/03/2019 No Stop Date Active Fish Oil 1,000 mg (120 mg-180 mg) capsule RxNorm: 1 Caps ule(s) Oral QD 05/03/2019 No Stop Date Active Vitamin D3 5,000 unit tablet RxNorm: 068372 1 Tablet(s) Oral QD No Stop Date Active Centrum 18 mg-400 mcg tablet RxNorm: 1 Tablet(s) Oral QD 05/03 No Stop Date Active Dilantin Extended 100 mg capsule RxNorm: 364314 1-2 Cap gael(s) Oral every night at bedtime 05/03/2019 06/06/2019 Inactive phenobarbital 32.4 mg tablet RxNorm: 645309 1 Tablet(s) Oral every night at bedtime 05/03/2019 06/06/2019 Inactive Medication Administered No Medication Administered data Immunizations Vaccine Codes Date Status Influenza CVX: 141 05/03/2019 Complete Influenza CVX: 141 05/03/2019 Complete Results Observation Observation Code Item Item Code Result Date S [facility] Location COMPLETE BLOOD COUNT [id number] WBC 12.2 10e9/L 020 Unknown COMPLETE BLOOD COUNT [id number] RBC 3.86 10e12/L 2019 Unknown COMPLETE BLOOD COUNT [id number] HEMOGLOBIN 11.4 g/dL 10/18/19 20 Unknown COMPLETE BLOOD COUNT [id number] HEMATOCRIT 34.3 % 10/18/19 20 Unknown COMPLETE BLOOD COUNT [id number] MCV 88.9 fL 0 Unknown COMPLETE BLOOD COUNT [id number] MCH 29.5 pg 0 Unknown COMPLETE BLOOD COUNT [id number] MCHC 33.2 g/dL 0 Unknown COMPLETE BLOOD COUNT [id number] PLATELET COUNT 495 10e9/L 05/2020 Unknown COMPLETE BLOOD COUNT [id number] Mean Plt Volume 8.9 fL 05/2020 Unknown COMPLETE BLOOD COUNT [id number] Neut Auto 74.8 % 0 Unknown COMPLETE BLOOD COUNT [id number] Lymph Auto 11.9 % 10/18/19 20 Unknown COMPLETE BLOOD COUNT [id number] Guthrie Auto 7.5 % 0 Unknown COMPLETE BLOOD COUNT [id number] RDW 13.8 % 0 Unknown COMPLETE BLOOD COUNT [id number] Eos Auto 5.3 % 0 Unknown COMPLETE BLOOD COUNT 7117762 Baso Auto 0.5 % 0 Unknown COMPLETE BLOOD COUNT [id number] Neutrophil Abs 9.13 10e9/L Unknown COMPLETE BLOOD COUNT [id number] Lymphocyte Abs 1.45 10e9/L Unknown COMPLETE BLOOD COUNT [id number] Monocyte Abs 0.92 10e9/L 10/08 Unknown COMPLETE BLOOD COUNT 2644602 Eosinophil Abs 0.65 10e9/L Unknown COMPLETE BLOOD COUNT 2322349 RDW-SD 44.0 fL 0 Unknown COMPLETE BLOOD COUNT [id number] Basophil Abs 0.06 10e9/L 10/08 Unknown COMPREHENSIVE METABOLIC 78394 AST 18 U/L 2019 Unknown COMPREHENSIVE METABOLIC 90268 ALT 31 U/L 2019 Unknown COMPREHENSIVE METABOLIC 52481 BUN 20 mg/dL 2019 Unknown COMPREHENSIVE METABOLIC 62267 ALBUMIN 3.7 g/dL 2019 Unknown COMPREHENSIVE METABOLIC 84701 CHLORIDE 90 mmol/L 2019 Unknown COMPREHENSIVE METABOLIC 81178 Bili Total 0.3 mg/dL 10/17 Unknown COMPREHENSIVE METABOLIC 00301 ALK PHOS 84 U/L 2019 Unknown COMPREHENSIVE METABOLIC 84227 SODIUM 132 mmol/L 10/17 Unknown COMPREHENSIVE METABOLIC 00158 CREATININE 1.11 mg/dL 10/08 Unknown COMPREHENSIVE METABOLIC 76513 CALCIUM 8.7 mg/dL 2019 Unknown COMPREHENSIVE METABOLIC 12654 POTASSIUM 2.9 mmol/L 10/17 Unknown COMPREHENSIVE METABOLIC 25679 Total Protein 6.6 g/dL Unknown COMPREHENSIVE METABOLIC 79891 Glucose 109 mg/dL 2019 Unknown COMPREHENSIVE METABOLIC 15817 Bicarbonate 31 mmol/L 10/08 Unknown COMPREHENSIVE METABOLIC 87472 AGAP 11 mmol/L 2019 Unknown Procedures Procedure Codes Date URINE CULTURE/ COLONY COUNT CPT-4: 25089 10/18/2019 COMPLETE CBC W/AUTO DIFF WBC CPT-4: 88687 10/18/2019 COMPREHEN METABOLIC PANEL CPT-4: 94972 10/18/2019 ASSAY OF PHENYTOIN TOTAL CPT-4: 67692 10/18/2019 ASSAY OF PHENOBARBITAL CPT-4: 34736 10/18/2019 URINALYSIS NONAUTO W/O SCOPE CPT-4: 23785 10/10/2019 THER/PROPH/DIAG INJ SC/IM CPT-4: 02205 10/10/2019 CEFTRIAXONE SODIUM INJECTION CPT-4: J0696 10/10/2019 URINE CULTURE/ COLONY COUNT CPT-4: 85904 10/10/2019 THER/PROPH/DIAG INJ SC/IM CPT-4: 26962 08/11/2019 TRIAMCINOLONE ACET INJ NOS CPT-4: J3301 08/11/2019 CEFTRIAXONE SODIUM INJECTION CPT-4: J0696 08/11/2019 THER/PROPH/DIAG INJ SC/IM CPT-4: 40051 08/11/2019 IIV4 VACC NO PRSV 6 MTHS TO 64 YRS+ IM CPT-4: 53550 05/03/2019 IIV4 VACC NO PRSV 6 MTHS TO 64 YRS+ IM CPT-4: 74335 05/03/2019 IMMUNIZATION ADMIN CPT-4: 73165 05/03/2019 Vital Signs Date Vital 10/18/2019 Blood [...] 1: 146/92 Code: 8480-6 BMI: 32.3 Code: 62170-4 Heart Rate 1: 72 bpm Height: 5'6" Respiratory Rate: 18 bpm SpO2: 98% Tempera ture: 36.8 (C) / 98.2 (F) Weight: 203 lbs Functional Status No Functional Status data Reason For Visit Reason For Visit Effective Dates Notes fatigue 10/18/2019 urinary retention/hesitancy 10/10/2019 follow up 08/11/2019 blood pressure check 07/19/2019 high blood pressure 06/29/2019 high blood pressure 06/07/2019 ~generic 05/03/2019 New Patient--[facility] care Encounters Encounter Performer Location Codes Date () OFFICE/OUTPATIENT VISIT EST Diagnosis: Essential hypertension[ICD10: I10] Diagnosis: Seizure[ICD10: R56.9] Diagnosis: UTI (urinary tract infection)[ICD10: N39.0] Diagnosis: Fatigue[ICD10: R53.83] Diagnosis: Weakness[ICD10: R53.1] Brittney SCHOFIELD DO [facility] CPT-4: 86212 10/18/2019 ([id number]) OFFICE/OUTPATIENT VISIT EST Diagnosis: UTI (urinary tract infection)[ICD10: N39.0] Brittney SCHOFIELD DO [facility] CPT-4: 07224 10/10/2019 ([id number]) OFFICE/OUTPATIENT VISIT EST Diagnosis: Pneumonia due to infectious organism[ICD10: J18.9] Viraj SCHOFIELD [employer] [facility] CPT-4: 54845 08/11/2019 ([id number]) OFFICE/OUTPATIENT VISIT EST Diagnosis: Essential hypertension[ICD10: I10] Diagnosis: Sinusitis[ICD10: J32.9] Brittney DAVEY [employer] [facility] CPT-4: 71247 06/29/2019 ([id number]) OFFICE/OUTPATIENT VISIT EST Diagnosis: Essential hypertension[ICD10: I10] Viraj SCHOFIELD [employer] CPT-4: 91202 06/07/2019 OFFICE/OUTPATIENT VISIT NEW Diagnosis: FLU VACCINE[ICD10: Z23] Diagnosis: Seizure[ICD10: R56.9] Diagnosis: Knee pain, bilateral[ICD10: M25.561] Diagnosis: Elevated blood pressure reading[ICD10: R03.0] Viraj SCHOFIELD [employer] CPT-4: 64352 05/03/2019 Plan of Care Planned Activity Notes Codes Status Date Visit Diagnosis Plan: Fatigue Discussion: cbc, cmp, ur ine culture ordered. ekg ordered as well. phenobarbital and dilantin levels ordered and instructed patient to push fluids. ICD-9 : 780.79 ICD-10 : R53.83 10/18/2019 Visit Diagnosis Plan: UTI (urinary tract infection) Di scussion: will repeat urine culture. bactrim sent out for patient to start due to continued blood and leukocytes present in urine. ICD-9 : 599.0 ICD-10 : N39.0 10/18/2019 Patient Education: lisinopril- Opt[employer] Coupon [id number] https://www.[employer]/sampleInfo/resources/getResource/61/[email or web address]-zt Completed 10/18/2019 Patient Education: High Blood Pressure [...] ICD-10 : N39.0 10/10/2019 Appointment: Brittney Triana [address] [place] [address] ACUTE ILLNESS 10/10/2019 Visit Diagnosis Plan: Pneumonia due to infectious orga nism Discussion: Rocephin 1gm IM and Kenalog 40mg IM Start augementin tomorrow with probiotic BID Start SVNS with albuterol TID to QID Call tomorrow if needs seen or to ER this weekend if worsening ICD-9 : 486 ICD-10 : J18.9 08/11/2019 Appointment: Viraj Schofield WPtel: [address] [place], [place] [phone] ACUTE ILLNESS 08/11/2019 Appointment: Viraj Schofield WPtel: [address] [place], [place] [phone] BP CHECK 07/19/2019 Visit Diagnosis Plan: Sinusitis Discussion: patient di d not tolerate cefdinir and augmentin is harsh on her gi system. will prescribe zpack but educated patient that many sinus infections are becoming resistant to medications. call if no improvement by thursday. coricidin hbp prn sinus pressure. ICD-9 : 473.9 ICD-10 : J32.9 06/29/2019 Visit Diagnosis Plan: Essential hypertension Discussio n: increase lisinopril to 40 mg daily. keep log of bp daily and bring in 2 weeks and also recheck bp in office in 2 weeks. ICD-9 : 401.9 ICD-10 : I10 06/29/2019 Appointment: Viraj Schofield WPtel: [facility] BP CHECK 06/29/2019 Appointment: Brittney Triana [address] [place] [address] ACUTE ILLNESS 06/29/2019 Patient Education: [facility] Glenda martinez Patient Savings Message - Lisinopril Completed 06/29/2019 Patient Education: High Blood Pressure Co mpleted 06/29/2019 Appointment: Viraj Schofield WPtel: [phone] [address] [place] did not need appt. Only to come in for BP 3 weeks from previ ous patient. CANCELED 06/28/2019 Visit Diagnosis Plan: Essential hypertension Discussio n: Start lisinopril 20mg daily Monitor home BP Return in 3 weeks for BP check with home readings as well as home cuff ICD-9 : 401.9 ICD-10 : I10 06/07/2019 Appointment: Viraj Schofield WPtel: [facility] [address] FOLLOW UP 06/07/2019 Patient Education: [employer] martinez Patient Savings Message - Lisinopril Completed 06/07/2019 Patient Education: Dilantin Extended- OptimizeRX Coupo n [id number] https://www.[employer].GramVaani/samplemd/resources/getResource/61/iy4t1w89-102t-8556-82 Completed 06/07/2019 Patient Education: phenobarbital- Optimize[employer] Coupon [phone] [id number] https://www.[employer]/samplemd/resources/getResource/61/2348175h-0736-3fdo-d0 Completed 06/07/2019 Visit Plan: Mammogram ordered Patient wi ll find out if her mom's colon resection was due to cancer or other reason--discussed that if was from cancer then is due for colonoscopy since should be every 5 years May need pelvic US due to 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
--- OUTSIDE RECORDS SUMMARY | 2019-10-20 22:36 | XMS REPORT | CCD ---
Author Author Clarissa Schofield D.O. Organization VIRAJ SCHOFIELD DO [facility] Address [address] [place] [address] Phone Care Team Providers Care Cosmetic Counselor Name Role Phone PP Unavailable CCM Unavailable Summary Purpose Interface Exchange Insurance Providers Payer name Policy type / Coverage type Covered republican ID Effective Begin Date Effective End Date Blue Cross Blue Shield Blue Cross/Blue Shield [id number] Unknown Family history Mother Diagnosis Age At Onset Dementia Unknown Macular degeneration Unknown Breast cancer Unknown Sister Diagnosis Age At Onset Macular degeneration Unknown Ovarian cancer Unknown Breast cancer Unknown Social History Social History Element Codes Description Effective Dates Marital status Unknown 05/03/2019 Number of children Unknown 3 05/03/2019 Employment Unknown Retired 05/03/[address]: 393100546 Has never smoked or chewed tobacco 05/03/[address]: 366942 Currently drinks alcohol 05/03 Frequency of drinks SNOMED CT: 983134857 Drinks rarely 019 Has the patient ever [...] Fill Instructions Macrobid 100 mg capsule RxNorm: 748185 1 Capsule(s) Oral two ti mes a day 10/10/2019 10/13/2019 Active phenobarbital 32.4 mg tablet RxNorm: 584390 1 Tablet(s) Oral every night at bedtime 10/10/2019 04/07/2020 Active Dilantin Extended 100 mg capsule RxNorm: 278404 1-2 Cap gael(s) Oral every night at bedtime 09/21/2019 03/18/2020 Active albuterol sulfate 2.5 mg/3 mL (0.083 %) solution for n ebulization RxNorm: 053321 1 Unit Dose Inhalation four times a day 08/11/2019 10/10/2019 I nactive Augmentin 500 mg-125 mg tablet RxNorm: 079419 1 Tablet(s) Oral two times a day 08/11/2019 08/18/2019 Inactive doxycycline hyclate 100 mg capsule RxNorm: 7829527 1 Cap gael(s) Oral two times a day 08/01/2019 08/07/2019 Inactive doxycycline hyclate 100 mg capsule RxNorm: 2427052 1 Cap gael(s) Oral two times a day 08/01/2019 07/31/2019 Inactive hydrochlorothiazide 12.5 mg capsule RxNorm: 538860 1 Capsule(s) Oral QAM 07/19/2019 10/17/2019 Active lisinopril 40 mg tablet RxNorm: 869360 1 Tablet(s) Oral QD 07/19/20 19 07/19/2019 Inactive Zithromax Z-Alex 250 mg tablet RxNorm: 387764 Tablet(s) Oral estefany e as directed 06/29/2019 07/18/2019 Inactive lisinopril 40 mg tablet RxNorm: 264141 1 Tablet(s) Oral QD 06/29/20 19 07/18/2019 Inactive Dilantin Extended 100 mg capsule RxNorm: 152148 1-2 Cap gael(s) Oral every night at bedtime 06/07/2019 09/20/2019 Inactive lisinopril 20 mg tablet RxNorm: 312185 1 Tablet(s) Oral QD 06/07/20 19 06/29/2019 Inactive phenobarbital 32.4 mg tablet RxNorm: 664262 1 Tablet(s) Oral every night at bedtime 06/07/2019 09/04/2019 Inactive atorvastatin 10 mg tablet RxNorm: 389943 1 Tablet(s) Oral QD 201811/01/2019 Active atorvastatin 10 mg tablet RxNorm: 838415 1 Tablet(s) Oral QD 201805/05/2019 Inactive Zyrtec 10 mg tablet RxNorm: 6498100 1 Tablet(s) Oral QAM 05/03/2019 No Stop Date Active Fish Oil 1,000 mg (120 mg-180 mg) capsule RxNorm: 1 Caps ule(s) Oral QD 05/03/2019 No Stop Date Active Vitamin D3 5,000 unit tablet RxNorm: 584151 1 Tablet(s) Oral QD No Stop Date Active Centrum 18 mg-400 mcg tablet RxNorm: 1 Tablet(s) Oral QD 05/03 No Stop Date Active Dilantin Extended 100 mg capsule RxNorm: 491874 1-2 Cap gael(s) Oral every night at bedtime 05/03/2019 06/06/2019 Inactive phenobarbital 32.4 mg tablet RxNorm: 086369 1 Tablet(s) Oral every night at bedtime 05/03/2019 06/06/2019 Inactive Medication Administered No Medication Administered data Immunizations Vaccine Codes Date Status Influenza CVX: 141 05/03/2019 Complete Influenza CVX: 141 05/03/2019 Complete Results No Results data Procedures Procedure Codes Date URINALYSIS NONAUTO W/O SCOPE CPT-4: 00902 10/10/2019 THER/PROPH/DIAG INJ SC/IM CPT-4: 88528 10/10/2019 CEFTRIAXONE SODIUM INJECTION CPT-4: J0696 10/10/2019 URINE CULTURE/ COLONY COUNT CPT-4: 16262 10/10/2019 THER/PROPH/DIAG INJ SC/IM CPT-4: 14507 08/11/2019 TRIAMCINOLONE ACET INJ NOS CPT-4: J3301 08/11/2019 CEFTRIAXONE SODIUM INJECTION CPT-4: J0696 08/11/2019 THER/PROPH/DIAG INJ SC/IM CPT-4: 29477 08/11/2019 IIV4 VACC NO PRSV 6 MTHS TO 64 YRS+ IM CPT-4: 56992 05/03/2019 IIV4 VACC NO PRSV 6 MTHS TO 64 YRS+ IM CPT-4: 22767 05/03/2019 IMMUNIZATION ADMIN CPT-4: 79143 05/03/2019 Vital Signs Date Vital 10/10/2019 Blood [...] 1: 146/92 Code: 8480-6 BMI: 32.3 Code: 87704-0 Heart Rate 1: 72 bpm Height: 5'6" [...] care Encounters Encounter Performer Location Codes Date ([id number]) OFFICE/OUTPATIENT VISIT EST Diagnosis: UTI (urinary tract infection)[ICD10: N39.0] Brittney REYESNDER [employer] CPT-4: 30890 10/10/2019 ([id number]) OFFICE/OUTPATIENT VISIT EST Diagnosis: Pneumonia due to infectious organism[ICD10: J18.9] Viraj REYESNDPETAR X [facility] CPT-4: 29661 08/11/2019 ([id number]) OFFICE/OUTPATIENT VISIT EST Diagnosis: Essential hypertension[ICD10: I10] Diagnosis: Sinusitis[ICD10: J32.9] Brittney REYESND PETAR [employer] CPT-4: 96387 06/29/2019 ([id number]) OFFICE/OUTPATIENT VISIT EST Diagnosis: Essential hypertension[ICD10: I10] Viraj REYESNDER [facility] CPT-4: 68450 06/07/2019 OFFICE/OUTPATIENT VISIT NEW Diagnosis: FLU VACCINE[ICD10: Z23] Diagnosis: Seizure[ICD10: R56.9] Diagnosis: Knee pain, bilateral[ICD10: M25.561] Diagnosis: Elevated blood pressure reading[ICD10: R03.0] Viraj REYESNDPETAR DO [employer] CPT-4: 19981 05/03/2019 Plan of Care Planned Activity Notes [...] : J18.9 08/11/2019 Appointment: Viraj Schofield WPtel: [address] [place] [address] ACUTE ILLNESS 08/11/2019 Appointment: Viraj Schofield WPtel: [address] [place] [address] BP CHECK 07/19/2019 Visit Diagnosis Plan: Essential [...] : 473.9 ICD-10 : J32.9 06/29/2019 Appointment: Virja Schofield WPtel: [address] [place], [place] [phone] BP CHECK 06/29/2019 Appointment: Brittney Triana [address] [place] [address] ACUTE ILLNESS 06/29/2019 Patient Education: [facility] [employer] juan Patient Savings Message - Lisinopril Completed 06/29/2019 Patient Education: High Blood Pressure Co mpleted 06/29/2019 Appointment: Viraj Schofield WPtel: [address] [place] [address] [place] did not need appt. Only to come in for BP 3 weeks from previ ous patient. CANCELED 06/28/2019 Visit Diagnosis Plan: Essential hypertension Discussio n: Start lisinopril 20mg daily Monitor home BP Return in 3 weeks for BP check with home readings as well as home cuff ICD-9 : 401.9 ICD-10 : I10 06/07/2019 Appointment: Viraj Schofield [facility]Ptel[facility] [phone] [facility] FOLLOW UP 06/07/2019 Patient Education: [facility] [employer] C juan Patient Savings Message - Lisinopril Completed 06/07/2019 Patient Education: Dilantin Extended- OptimizeRX Coupo n [id number] https://www.[employer]/sampleMax[employer]te/resources/getResource/61/[email or web address]-4469-43 Completed 06/07/2019 Patient Education: phenobarbital- OptimizeRX Coupon [phone] [id number] https://www.[employer]/resources/getResource/61/0326645g-8139-3ery-d3 Completed 06/07/2019 Visit Plan: Mammogram ordered Patient wi ll find out if her mom's colon resection was due to cancer or other reason--discussed that if was from cancer then is due for colonoscopy since should be every 5 years May need pelvic US due to 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 Mammogram ordered Patient will find out if her mom's colon resection was due to cancer or other reason--discussed that if was from cancer then is due for colonoscopy since should be every 5 years May need pelvic US due to family history of HIGH PRESSURE BOILER OPERATOR cancers Referral to dermatology for skin check DtaP up to date Flu shot given Medical Equipment No Medical Equipment data Health Concerns Section Health Concerns data not found Goals Section Goals data not found Interventions Section Interventions data not found Health Status Evaluations/Outcomes Section Health Status Evaluations/Outcomes data not found Advance Directives No Advance Directive data
--- OUTSIDE RECORDS SUMMARY | 2019-10-20 22:36 | XMS REPORT | CCD ---
Author Author Clarissa Schofield D.O. Organization VIRAJ SCHOFIELD DO [facility] Address [address] [place] [address] Phone Care Team Providers Care Speedboat Operator Name Role Phone PP Unavailable CCM Unavailable Summary Purpose Interface Exchange Insurance Providers Payer name Policy type / Coverage type Covered republican ID Effective Begin Date Effective End Date Blue Cross Blue Shield Blue Cross/Blue Shield [id number] Unknown Family history Mother Diagnosis Age At Onset Dementia Unknown Macular degeneration Unknown Breast cancer Unknown Sister Diagnosis Age At Onset Macular degeneration Unknown Ovarian cancer Unknown Breast cancer Unknown Social History Social History Element Codes Description Effective Dates Marital status Unknown 05/03/2019 Number of children Unknown 3 05/03/2019 Employment Unknown Retired 05/03/[address]: 008837363 Has never smoked or chewed tobacco 05/03/[address]: 721310 Currently drinks alcohol 05/03 Frequency of drinks SNOMED CT: 013698460 Drinks rarely 019 Has the patient ever [...] Fill Instructions lisinopril 40 mg tablet RxNorm: 348055 1 Tablet(s) Oral QD 10/18/1910/18/2019 Inactive Bactrim DS 800 mg-160 mg tablet RxNorm: 823878 1 Tablet(s) Oral two times a day 10/18/2019 10/28/2019 Active phenobarbital 32.4 mg tablet RxNorm: 520239 1 Tablet(s) Oral every night at bedtime 10/10/2019 04/07/2020 Active Macrobid 100 mg capsule RxNorm: 194893 1 Capsule(s) Oral two ti mes a day 10/10/2019 10/13/2019 Inactive Dilantin Extended 100 mg capsule RxNorm: 540191 1-2 Cap gael(s) Oral every night at bedtime 09/21/2019 03/18/2020 Active albuterol sulfate 2.5 mg/3 mL (0.083 %) solution for n ebulization RxNorm: 905044 1 Unit Dose Inhalation four times a day 08/11/2019 10/10/2019 I nactive Augmentin 500 mg-125 mg tablet RxNorm: 214183 1 Tablet(s) Oral two times a day 08/11/2019 08/18/2019 Inactive doxycycline hyclate 100 mg capsule RxNorm: 3182480 1 Cap gael(s) Oral two times a day 08/01/2019 08/07/2019 Inactive doxycycline hyclate 100 mg capsule RxNorm: 4294733 1 Cap gael(s) Oral two times a day 08/01/2019 07/31/2019 Inactive hydrochlorothiazide 12.5 mg capsule RxNorm: 178093 1 Capsule(s) Oral QAM 07/19/2019 10/17/2019 Inactive lisinopril 40 mg tablet RxNorm: 582253 1 Tablet(s) Oral QD 07/19/2007/19/2019 Inactive Zithromax Z-Alex 250 mg tablet RxNorm: 607743 Tablet(s) Oral estefany e as directed 06/29/2019 07/18/2019 Inactive lisinopril 40 mg tablet RxNorm: 605944 1 Tablet(s) Oral QD 06/29/20 19 07/18/2019 Inactive Dilantin Extended 100 mg capsule RxNorm: 717141 1-2 Cap gael(s) Oral every night at bedtime 06/07/2019 09/20/2019 Inactive lisinopril 20 mg tablet RxNorm: 702537 1 Tablet(s) Oral QD 06/07/20 19 06/29/2019 Inactive phenobarbital 32.4 mg tablet RxNorm: 853336 1 Tablet(s) Oral every night at bedtime 06/07/2019 09/04/2019 Inactive atorvastatin 10 mg tablet RxNorm: 276160 1 Tablet(s) Oral QD 201811/01/2019 Active atorvastatin 10 mg tablet RxNorm: 144205 1 Tablet(s) Oral QD 201805/05/2019 Inactive Zyrtec 10 mg tablet RxNorm: 5752661 1 Tablet(s) Oral QAM 05/03/2019 No Stop Date Active Fish Oil 1,000 mg (120 mg-180 mg) capsule RxNorm: 1 Caps ule(s) Oral QD 05/03/2019 No Stop Date Active Vitamin D3 5,000 unit tablet RxNorm: 013491 1 Tablet(s) Oral QD No Stop Date Active Centrum 18 mg-400 mcg tablet RxNorm: 1 Tablet(s) Oral QD 05/03 No Stop Date Active Dilantin Extended 100 mg capsule RxNorm: 650033 1-2 Cap gael(s) Oral every night at bedtime 05/03/2019 06/06/2019 Inactive phenobarbital 32.4 mg tablet RxNorm: 609180 1 Tablet(s) Oral every night at bedtime 05/03/2019 06/06/2019 Inactive Medication Administered No Medication Administered data Immunizations Vaccine Codes Date Status Influenza CVX: 141 05/03/2019 Complete Influenza CVX: 141 05/03/2019 Complete Results Observation Observation Code Item Item Code Result Date S [facility] Location COMPLETE BLOOD COUNT [id number] WBC 12.2 10e9/L 020 Unknown COMPLETE BLOOD COUNT 2152120 RBC 3.86 10e12/L 2019 Unknown COMPLETE BLOOD COUNT 7000571 HEMOGLOBIN 11.4 g/dL 10/18/19 20 Unknown COMPLETE BLOOD COUNT [id number] HEMATOCRIT 34.3 % 10/18/19 20 Unknown COMPLETE BLOOD COUNT [id number] MCV 88.9 fL 0 Unknown COMPLETE BLOOD COUNT [id number] MCH 29.5 pg 0 Unknown COMPLETE BLOOD COUNT 7907140 MCHC 33.2 g/dL 0 Unknown COMPLETE BLOOD COUNT 1115126 PLATELET COUNT 495 10e9/L 05/2020 Unknown COMPLETE BLOOD COUNT 8605671 Mean Plt Volume 8.9 fL 05/2020 Unknown COMPLETE BLOOD COUNT [id number] Neut Auto 74.8 % 0 Unknown COMPLETE BLOOD COUNT [id number] Lymph Auto 11.9 % 10/18/19 20 Unknown COMPLETE BLOOD COUNT 6675325 [place] Auto 7.5 % 0 Unknown COMPLETE BLOOD COUNT [id number] RDW 13.8 % 0 Unknown COMPLETE BLOOD COUNT 6323434 Eos Auto 5.3 % 0 Unknown COMPLETE BLOOD COUNT 1214324 Baso Auto 0.5 % 0 Unknown COMPLETE BLOOD COUNT [id number] Neutrophil Abs 9.13 10e9/L Unknown COMPLETE BLOOD COUNT 9234993 Lymphocyte Abs 1.45 10e9/L Unknown COMPLETE BLOOD COUNT [id number] Monocyte Abs 0.92 10e9/L 10/08 Unknown COMPLETE BLOOD COUNT 3430858 Eosinophil Abs 0.65 10e9/L Unknown COMPLETE BLOOD COUNT 8134059 RDW-SD 44.0 fL 0 Unknown COMPLETE BLOOD COUNT [id number] Basophil Abs 0.06 10e9/L 10/08 Unknown GFR CALC 1270688 GFR Non Afr Amr 50 mL/min 10/18/2019 Unk nown GFR CALC 8348912 GFR Afr Amr 60 mL/min 10/18/2019 Unknown COMPREHENSIVE METABOLIC 57780 AST 18 U/L 2019 Unknown COMPREHENSIVE METABOLIC 15593 ALT 31 U/L 2019 Unknown COMPREHENSIVE METABOLIC 81426 BUN 20 mg/dL 2019 Unknown COMPREHENSIVE METABOLIC 52609 ALBUMIN 3.7 g/dL 2019 Unknown COMPREHENSIVE METABOLIC 57569 CHLORIDE 90 mmol/L 2019 Unknown COMPREHENSIVE METABOLIC 83534 Bili Total 0.3 mg/dL 10/17 Unknown COMPREHENSIVE METABOLIC 03859 ALK PHOS 84 U/L 2019 Unknown COMPREHENSIVE METABOLIC 86610 SODIUM 132 mmol/L 10/17 Unknown COMPREHENSIVE METABOLIC 76882 CREATININE 1.11 mg/dL 10/08 Unknown COMPREHENSIVE METABOLIC 32256 CALCIUM 8.7 mg/dL 2019 Unknown COMPREHENSIVE METABOLIC 35738 POTASSIUM 2.9 mmol/L 10/17 Unknown COMPREHENSIVE METABOLIC 72568 Total Protein 6.6 g/dL Unknown COMPREHENSIVE METABOLIC 59875 Glucose 109 mg/dL 2019 Unknown COMPREHENSIVE METABOLIC 29296 Bicarbonate 31 mmol/L 10/08 Unknown COMPREHENSIVE METABOLIC 63359 AGAP 11 mmol/L 2019 Unknown Procedures Procedure Codes Date URINE CULTURE/ COLONY COUNT CPT-4: 45599 10/18/2019 COMPLETE CBC W/AUTO DIFF WBC CPT-4: 22905 10/18/2019 COMPREHEN METABOLIC PANEL CPT-4: 43428 10/18/2019 ASSAY OF PHENYTOIN TOTAL CPT-4: 34204 10/18/2019 ASSAY OF PHENOBARBITAL CPT-4: 65460 10/18/2019 URINALYSIS NONAUTO W/O SCOPE CPT-4: 97758 10/10/2019 THER/PROPH/DIAG INJ SC/IM CPT-4: 95954 10/10/2019 CEFTRIAXONE SODIUM INJECTION CPT-4: J0696 10/10/2019 URINE CULTURE/ COLONY COUNT CPT-4: 19722 10/10/2019 THER/PROPH/DIAG INJ SC/IM CPT-4: 98899 08/11/2019 TRIAMCINOLONE ACET INJ NOS CPT-4: J3301 08/11/2019 CEFTRIAXONE SODIUM INJECTION CPT-4: J0696 08/11/2019 THER/PROPH/DIAG INJ SC/IM CPT-4: 19797 08/11/2019 IIV4 VACC NO PRSV 6 MTHS TO 64 YRS+ IM CPT-4: 80650 05/03/2019 IIV4 VACC NO PRSV 6 MTHS TO 64 YRS+ IM CPT-4: 13398 05/03/2019 IMMUNIZATION ADMIN CPT-4: 07295 05/03/2019 Vital Signs Date Vital 10/18/2019 Blood [...] 1: 146/92 Code: 8480-6 BMI: 32.3 Code: 65375-9 Heart Rate 1: 72 bpm Height: 5'6" [...] care Encounters Encounter Performer Location Codes Date (89128) OFFICE/OUTPATIENT VISIT EST Diagnosis: Essential hypertension[ICD10: I10] Diagnosis: Seizure[ICD10: R56.9] Diagnosis: UTI (urinary tract infection)[ICD10: N39.0] Diagnosis: Fatigue[ICD10: R53.83] Diagnosis: Weakness[ICD10: R53.1] Brittney Triana VIRAJ SCHOFIELD DO [employer] CPT-4: 77202 10/18/2019 ([id number]) OFFICE/OUTPATIENT VISIT EST Diagnosis: UTI (urinary tract infection)[ICD10: N39.0] Brittney Triana VIRAJ Lutz AMYAARON FU [facility] CPT-4: 94049 10/10/2019 ([id number]) OFFICE/OUTPATIENT VISIT EST Diagnosis: Pneumonia due to infectious organism[ICD10: J18.9] Viraj SCHOFIELD DO [employer] CPT-4: 56134 08/11/2019 ([id number]) OFFICE/OUTPATIENT VISIT EST Diagnosis: Essential hypertension[ICD10: I10] Diagnosis: Sinusitis[ICD10: J32.9] Brittney TREVIZOAFSHIN Lutz AMYTRISTAN DAVEY [employer] CPT-4: 57654 06/29/2019 ([id number]) OFFICE/OUTPATIENT VISIT EST Diagnosis: Essential hypertension[ICD10: I10] Viraj Lutz AMYAARON [employer] CPT-4: 93778 06/07/2019 OFFICE/OUTPATIENT VISIT NEW Diagnosis: FLU VACCINE[ICD10: Z23] Diagnosis: Seizure[ICD10: R56.9] Diagnosis: Knee pain, bilateral[ICD10: M25.561] Diagnosis: Elevated blood pressure reading[ICD10: R03.0] Viraj Lutz AMYAARON [employer] CPT-4: 38609 05/03/2019 Plan of Care Planned Activity Notes [...] R53.83 10/18/2019 Patient Education: lisinopril- OptimizeRX Coupon [id number] https://www.Pockethernet/samplemd/resources/getResource/61/2n7u7aa5-27n2-03n5-tt Completed 10/18/2019 Patient Education: High Blood Pressure [...] ICD-10 : N39.0 10/10/2019 Appointment: Brittney Triana [address] [place] [address] ACUTE ILLNESS 10/10/2019 Visit Diagnosis Plan: Pneumonia due to infectious orga nism Discussion: Rocephin 1gm IM and Kenalog 40mg IM Start augementin tomorrow with probiotic BID Start SVNS with albuterol TID to QID Call tomorrow if needs seen or to ER this weekend if worsening ICD-9 : 486 ICD-10 : J18.9 08/11/2019 Appointment: Viraj Schofield WPtel: [address] [place], [place] [phone] ACUTE ILLNESS 08/11/2019 Appointment: Viraj Schofield WPtel: [address] [place], [place] [phone] US BP CHECK 07/19/2019 Visit Diagnosis Plan: [...] : J32.9 06/29/2019 Appointment: Viraj Schofield WPtel: [address] [place] [address] BP CHECK 06/29/2019 Appointment: Brittney Triana [address] [place] [address] ACUTE ILLNESS 06/29/2019 Patient Education: [facility] martinez Patient Savings Message - Lisinopril Completed 06/29/2019 Patient Education: High Blood Pressure Co mpleted 06/29/2019 Appointment: Viraj Schofield WPtel: [address] [place] [address] [place] did not need appt. Only to come in for BP 3 weeks from previ ous patient. CANCELED 06/28/2019 Visit Diagnosis Plan: Essential hypertension Discussio n: Start lisinopril 20mg daily Monitor home BP Return in 3 weeks for BP check with home readings as well as home cuff ICD-9 : 401.9 ICD-10 : I10 06/07/2019 Appointment: Viraj Schofield WPtel: [address] [place] [address] FOLLOW UP 06/07/2019 Patient Education: [facility] Kleber martinez Patient Savings Message - Lisinopril Completed 06/07/2019 Patient Education: Dilantin Extended- OptimizeRX Coupo n [id number] https://www.RADEUM.iPositioning/samplemd/resources/getResource/61/xn3x8x29-179f-7078-72 Completed 06/07/2019 Patient Education: phenobarbital- OptimizeRX Coupon 85 [id number] https://www.RADEUM.com/samplemd/resources/getResource/61/0783175n-4531-5jgf-r2 Completed 06/07/2019 Visit Plan: Mammogram ordered Patient wi ll find out if her mom's colon resection was due to cancer or other reason--discussed that if was from cancer then is due for colonoscopy since should be every 5 years May need pelvic US due to family history of CLASSIFICATION CASE MANAGER cancers Referral to dermatology for skin check [...] M25.561 05/03/2019 Appointment: Viraj Schofield WPtel: [address] [facility] NEW PATIENT 05/03/2019 Referral: Sofía More WPtel: [facility] [address] [facility] [[email or web address]] Referral Initiated Instructions Comment . Mammogram ordered Patient will find out if her mom's colon resection was due to cancer or other reason--discussed that if was from cancer then is due for colonoscopy since should be every 5 years May need pelvic US due to family history of CLASSIFICATION CASE MANAGER cancers Referral to dermatology for skin check DtaP up to date Flu shot given Medical Equipment No Medical Equipment data Health Concerns Section Health Concerns data not found Goals Section Goals data not found Interventions Section Interventions data not found Health Status Evaluations/Outcomes Section Health Status Evaluations/Outcomes data not found Advance Directives No Advance Directive data
--- OUTSIDE RECORDS SUMMARY | 2019-10-20 22:37 | XMS REPORT | CCD ---
Author Author Clarissa Shcofield D.O. Organization VIRAJ SCHOFIELD DO [facility] Address [address] [place] [address] Phone Care Team Providers Care Clinical Document Improvement Educator Name Role Phone PP Unavailable CCM Unavailable Summary Purpose Interface Exchange Insurance Providers Payer name Policy type / Coverage type Covered constitution party ID Effective Begin Date Effective End Date Blue Cross Blue Shield Blue Cross/Blue Shield [id number] Unknown Family history Mother Diagnosis Age At Onset Dementia Unknown Macular degeneration Unknown Breast cancer Unknown Sister Diagnosis Age At Onset Macular degeneration Unknown Ovarian cancer Unknown Breast cancer Unknown Social History Social History Element Codes Description Effective Dates Marital status Unknown 05/03/2019 Number of children Unknown 3 05/03/2019 Employment Unknown Retired 05/03/[address]: 277356378 Has never smoked or chewed tobacco 05/03/[address]: 353481 Currently drinks alcohol 05/03 Frequency of drinks SNOMED CT: 366054379 Drinks rarely 019 Has the patient ever [...] Problems Condition Codes Effective Dates Condition Status Pneumonia due to infectious organism ICD-9: 486 [...] Start Date Stop Date Status Fill Instructions albuterol sulfate 2.5 mg/3 mL (0.083 %) solution for n ebulization RxNorm: 443750 1 Unit Dose Inhalation four times a day 08/11/2019 No Stop Date A ctive Augmentin 500 mg-125 mg tablet RxNorm: 695557 1 Tablet(s) Oral two times a day 08/11/2019 08/18/2019 Active doxycycline hyclate 100 mg capsule RxNorm: 4573779 1 Cap gael(s) Oral two times a day 08/01/2019 08/07/2019 Inactive doxycycline hyclate 100 mg capsule RxNorm: 5571975 1 Cap gael(s) Oral two times a day 08/01/2019 07/31/2019 Inactive hydrochlorothiazide 12.5 mg capsule RxNorm: 883608 1 Capsule(s) Oral QAM 07/19/2019 10/17/2019 Active lisinopril 40 mg tablet RxNorm: 483313 1 Tablet(s) Oral QD 07/19/20 19 07/19/2019 Inactive Zithromax Z-Alex 250 mg tablet RxNorm: 057279 Tablet(s) Oral estefany e as directed 06/29/2019 07/18/2019 Inactive lisinopril 40 mg tablet RxNorm: 037821 1 Tablet(s) Oral QD 06/29/20 19 07/18/2019 Inactive Dilantin Extended 100 mg capsule RxNorm: 382517 1-2 Cap gael(s) Oral every night at bedtime 06/07/2019 09/04/2019 Active phenobarbital 32.4 mg tablet RxNorm: 560959 1 Tablet(s) Oral every night at bedtime 06/07/2019 09/04/2019 Active lisinopril 20 mg tablet RxNorm: 238047 1 Tablet(s) Oral QD 06/07/20 19 06/29/2019 Inactive atorvastatin 10 mg tablet RxNorm: 524070 1 Tablet(s) Oral QD 201811/01/2019 Active atorvastatin 10 mg tablet RxNorm: 551699 1 Tablet(s) Oral QD 201805/05/2019 Inactive Zyrtec 10 mg tablet RxNorm: 2012598 1 Tablet(s) Oral QAM 05/03/2019 No Stop Date Active Fish Oil 1,000 mg (120 mg-180 mg) capsule RxNorm: 1 Caps ule(s) Oral QD 05/03/2019 No Stop Date Active Vitamin D3 5,000 unit tablet RxNorm: 791806 1 Tablet(s) Oral QD No Stop Date Active Centrum 18 mg-400 mcg tablet RxNorm: 1 Tablet(s) Oral QD 05/03 No Stop Date Active Dilantin Extended 100 mg capsule RxNorm: 674217 1-2 Cap gael(s) Oral every night at bedtime 05/03/2019 06/06/2019 Inactive phenobarbital 32.4 mg tablet RxNorm: 024250 1 Tablet(s) Oral every night at bedtime 05/03/2019 06/06/2019 Inactive Medication Administered No Medication Administered data Immunizations Vaccine Codes Date Status Influenza CVX: 141 05/03/2019 Complete Influenza CVX: 141 05/03/2019 Complete Results No Results data Procedures Procedure Codes Date THER/PROPH/DIAG INJ SC/IM CPT-4: 54688 08/11/2019 TRIAMCINOLONE ACET INJ NOS CPT-4: J3301 08/11/2019 CEFTRIAXONE SODIUM INJECTION CPT-4: J0696 08/11/2019 THER/PROPH/DIAG INJ SC/IM CPT-4: 92423 08/11/2019 IIV4 VACC NO PRSV 6 MTHS TO 64 YRS+ IM CPT-4: 35775 05/03/2019 IIV4 VACC NO PRSV 6 MTHS TO 64 YRS+ IM CPT-4: 90264 05/03/2019 IMMUNIZATION ADMIN CPT-4: 57100 05/03/2019 Vital Signs Date Vital 08/11/2019 Blood Pressure 1: 126/78 Code: 8480-6 [...] 1: 146/92 Code: 8480-6 BMI: 32.3 Code: 80658-8 Heart Rate 1: 72 bpm Height: 5'6" Respiratory Rate: 18 bpm SpO2: 98% Tempera ture: 36.8 (C) / 98.2 (F) Weight: 203 lbs Functional Status No Functional Status data Reason For Visit Reason For Visit Effective Dates Notes follow up 08/11/2019 blood pressure check 07/19/2019 high blood pressure 06/29/2019 high blood pressure 06/07/2019 ~generic 05/03/2019 New Patient--[facility] Encounters Encounter Performer Location Codes Date (86802) OFFICE/OUTPATIENT VISIT EST Diagnosis: Pneumonia due to infectious organism[ICD10: J18.9] Viraj SCHOFIELD Pirq CPT-4: 53831 08/11/2019 ([id number]) OFFICE/OUTPATIENT VISIT EST Diagnosis: Essential hypertension[ICD10: I10] Diagnosis: Sinusitis[ICD10: J32.9] Brittney Triana VIRAJ DAVEY Pirq CPT-4: 08507 06/29/2019 ([id number]) OFFICE/OUTPATIENT VISIT EST Diagnosis: Essential hypertension[ICD10: I10] Viraj SCHOFIELD Pirq CPT-4: 78521 06/07/2019 OFFICE/OUTPATIENT VISIT NEW Diagnosis: FLU VACCINE[ICD10: Z23] Diagnosis: Seizure[ICD10: R56.9] Diagnosis: Knee pain, bilateral[ICD10: M25.561] Diagnosis: Elevated blood pressure reading[ICD10: R03.0] Viarj REYESNDER DO [facility] CPT-4: 05976 05/03/2019 Plan of Care Planned Activity Notes Codes Status Date Visit Diagnosis Plan: Pneumonia due to infectious orga nism Discussion: Rocephin 1gm IM and Kenalog 40mg IM Start augementin tomorrow with probiotic BID Start SVNS with albuterol TID to QID Call tomorrow if needs seen or to ER this weekend if worsening ICD-9 : 486 ICD-10 : J18.9 08/11/2019 Appointment: Viraj Schofield WPtel: [address] [place] [address] BP CHECK 07/19/2019 Visit Diagnosis Plan: Essential [...] : J32.9 06/29/2019 Appointment: Viraj Schofield WPtel: [address] [place], [place] [phone] BP CHECK 06/29/2019 Appointment: Brittney Triana [address] [place] [address] ACUTE ILLNESS 06/29/2019 Patient Education: [facility] juan Patient Savings Message - Lisinopril Completed 06/29/2019 Patient Education: High Blood Pressure Co mpleted 06/29/2019 Appointment: Viraj Schofield WPtel: [address] [place] [address] [place] did not need appt. Only to come in for BP 3 weeks from previ ous patient. CANCELED 06/28/2019 Visit Diagnosis Plan: Essential hypertension Discussio n: Start lisinopril 20mg daily Monitor home BP Return in 3 weeks for BP check with home readings as well as home cuff ICD-9 : 401.9 ICD-10 : I10 06/07/2019 Appointment: Viraj Schofield WPtel: [address] [place], [place] [phone] FOLLOW UP 06/07/2019 Patient Education: [facility] juan Patient Savings Message - Lisinopril Completed 06/07/2019 Patient Education: Dilantin Extended- OptimizeRX Coupo n [id number] https://www.SonicS[employer] Innovations/sampleCode Climate/resources/getResource/61/oj7j9i20-965s-2897-68 Completed 06/07/2019 Patient Education: phenobarbital- OptimizeRX Coupon 85 [id number] https://www.[employer]/CityFibre/resources/getResource/61/7073438f-0333-5bky-x8 Completed 06/07/2019 Visit Plan: Mammogram ordered Patient wi ll find out if her mom's colon resection was due to cancer or other reason--discussed that if was from cancer then is due for colonoscopy since should be every 5 years May need pelvic US due to family history of 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 Mammogram ordered Patient will find out if her mom's colon resection was due to cancer or other reason--discussed that if was from cancer then is due for colonoscopy since should be every 5 years May need pelvic US due to family history of SAFETY AND SECURITY OFFICER cancers Referral to dermatology for skin check DtaP up to date Flu shot given Medical Equipment No Medical Equipment data Health Concerns Section Health Concerns data not found Goals Section Goals data not found Interventions Section Interventions data not found Health Status Evaluations/Outcomes Section Health Status Evaluations/Outcomes data not found Advance Directives No Advance Directive data
--- OUTSIDE RECORDS SUMMARY | 2019-10-20 22:37 | XMS REPORT | CCD ---
Author Author Clarissa Schofield D.O. Organization VIRAJ SCHOFIELD DO [facility] Address [address] [place] [address] Phone Care Team Providers Care Material Handler 1St Shift Name Role Phone PP Unavailable CCM Unavailable Summary Purpose Interface Exchange Insurance Providers Payer name Policy type / Coverage type Covered green party ID Effective Begin Date Effective End Date Blue Cross Blue Shield Blue Cross/Blue Shield [id number] Unknown Family history Mother Diagnosis Age At Onset Dementia Unknown Macular degeneration Unknown Breast cancer Unknown Sister Diagnosis Age At Onset Macular degeneration Unknown Ovarian cancer Unknown Breast cancer Unknown Social History Social History Element Codes Description Effective Dates Marital status Unknown 05/03/2019 Number of children Unknown 3 05/03/2019 Employment Unknown Retired 05/03/[address]: 633039725 Has never smoked or chewed tobacco 05/03/[address]: 748209 Currently drinks alcohol 05/03 Frequency of drinks SNOMED CT: 783828938 Drinks rarely 019 Has the patient ever [...] (0.083 %) solution for n ebulization RxNorm: 593038 1 Unit Dose Inhalation four times a day 08/11/2019 No Stop Date A ctive Augmentin 500 mg-125 mg tablet RxNorm: 665294 1 Tablet(s) Oral two times a day 08/11/2019 08/18/2019 Active doxycycline hyclate 100 mg capsule RxNorm: 7016684 1 Cap gael(s) Oral two times a day 08/01/2019 08/07/2019 Inactive doxycycline hyclate 100 mg capsule RxNorm: 0152306 1 Cap gael(s) Oral two times a day 08/01/2019 07/31/2019 Inactive hydrochlorothiazide 12.5 mg capsule RxNorm: 212751 1 Capsule(s) Oral QAM 07/19/2019 10/17/2019 Active lisinopril 40 mg tablet RxNorm: 345232 1 Tablet(s) Oral QD 07/19/20 19 07/19/2019 Inactive Zithromax Z-Alex 250 mg tablet RxNorm: 734403 Tablet(s) Oral estefany e as directed 06/29/2019 07/18/2019 Inactive lisinopril 40 mg tablet RxNorm: 546945 1 Tablet(s) Oral QD 06/29/20 19 07/18/2019 Inactive Dilantin Extended 100 mg capsule RxNorm: 936357 1-2 Cap gael(s) Oral every night at bedtime 06/07/2019 09/04/2019 Active phenobarbital 32.4 mg tablet RxNorm: 380316 1 Tablet(s) Oral every night at bedtime 06/07/2019 09/04/2019 Active lisinopril 20 mg tablet RxNorm: 269015 1 Tablet(s) Oral QD 06/07/20 19 06/29/2019 Inactive atorvastatin 10 mg tablet RxNorm: 888985 1 Tablet(s) Oral QD 201811/01/2019 Active atorvastatin 10 mg tablet RxNorm: 613212 1 Tablet(s) Oral QD 201805/05/2019 Inactive Zyrtec 10 mg tablet RxNorm: 9876413 1 Tablet(s) Oral QAM 05/03/2019 No Stop Date Active Fish Oil 1,000 mg (120 mg-180 mg) capsule RxNorm: 1 Caps ule(s) Oral QD 05/03/2019 No Stop Date Active Vitamin D3 5,000 unit tablet RxNorm: 529991 1 Tablet(s) Oral QD No Stop Date Active Centrum 18 mg-400 mcg tablet RxNorm: 1 Tablet(s) Oral QD 05/03 No Stop Date Active Dilantin Extended 100 mg capsule RxNorm: 160047 1-2 Cap gael(s) Oral every night at bedtime 05/03/2019 06/06/2019 Inactive phenobarbital 32.4 mg tablet RxNorm: 205199 1 Tablet(s) Oral every night at bedtime 05/03/2019 06/06/2019 Inactive Medication Administered No Medication Administered data Immunizations Vaccine Codes Date Status Influenza CVX: 141 05/03/2019 Complete Influenza CVX: 141 05/03/2019 Complete Results No Results data Procedures Procedure Codes Date THER/PROPH/DIAG INJ SC/IM CPT-4: 97314 08/11/2019 TRIAMCINOLONE ACET INJ NOS CPT-4: J3301 08/11/2019 CEFTRIAXONE SODIUM INJECTION CPT-4: J0696 08/11/2019 THER/PROPH/DIAG INJ SC/IM CPT-4: 61523 08/11/2019 IIV4 VACC NO PRSV 6 MTHS TO 64 YRS+ IM CPT-4: 07192 05/03/2019 IIV4 VACC NO PRSV 6 MTHS TO 64 YRS+ IM CPT-4: 68385 05/03/2019 IMMUNIZATION ADMIN CPT-4: 13683 05/03/2019 Vital Signs Date Vital 08/11/2019 Blood [...] 1: 146/92 Code: 8480-6 BMI: 32.3 Code: 18074-6 Heart Rate 1: 72 bpm Height: 5'6" Respiratory Rate: 18 bpm SpO2: 98% Tempera ture: 36.8 (C) / 98.2 (F) Weight: 203 lbs Functional Status No Functional Status data Reason For Visit Reason For Visit Effective Dates Notes follow up 08/11/2019 blood pressure check 07/19/2019 high blood pressure 06/29/2019 high blood pressure 06/07/2019 ~generic 05/03/2019 New Patient--[facility] care Encounters Encounter Performer Location Codes Date (48697) OFFICE/OUTPATIENT VISIT EST Diagnosis: Pneumonia due to infectious organism[ICD10: J18.9] Viraj SCHOFIELD [facility] CPT-4: 08074 08/11/2019 ([id number]) OFFICE/OUTPATIENT VISIT EST Diagnosis: Essential hypertension[ICD10: I10] Diagnosis: Sinusitis[ICD10: J32.9] Brittney Triana VIRAJ DAVEY [place] CPT-4: 67334 06/29/2019 ([id number]) OFFICE/OUTPATIENT VISIT EST Diagnosis: Essential hypertension[ICD10: I10] Viraj SCHOFIELD [place] CPT-4: 18939 06/07/2019 OFFICE/OUTPATIENT VISIT NEW Diagnosis: FLU VACCINE[ICD10: Z23] Diagnosis: Seizure[ICD10: R56.9] Diagnosis: Knee pain, bilateral[ICD10: M25.561] Diagnosis: Elevated blood pressure reading[ICD10: R03.0] Viraj REYESNDER DO [facility] CPT-4: 56923 05/03/2019 Plan of Care Planned Activity Notes Codes Status Date Visit Diagnosis Plan: Pneumonia due to infectious orga nism Discussion: Rocephin 1gm IM and Kenalog 40mg IM Start augementin tomorrow with probiotic BID Start SVNS with albuterol TID to QID Call tomorrow if needs seen or to ER this weekend if worsening ICD-9 : 486 ICD-10 : J18.9 08/11/2019 Appointment: Viraj Schofield WPtel: [address] [place] [address] BP CHECK 07/19/2019 Visit Diagnosis Plan: Essential [...] : J32.9 06/29/2019 Appointment: Viraj Schofield WPtel: [address] [place], [place] [phone] BP CHECK 06/29/2019 Appointment: Brittney Triana [address] [place] [address] ACUTE ILLNESS 06/29/2019 Patient Education: [facility] Patient Savings Message - Lisinopril Completed 06/29/2019 Patient Education: High Blood Pressure Co mpleted 06/29/2019 Appointment: Viraj Schofield WPtel: [address] [place] [address] [place] did not need appt. Only to come in for BP 3 weeks from previ ous patient. CANCELED 06/28/2019 Visit Diagnosis Plan: Essential hypertension Discussio n: Start lisinopril 20mg daily Monitor home BP Return in 3 weeks for BP check with home readings as well as home cuff ICD-9 : 401.9 ICD-10 : I10 06/07/2019 Appointment: Viraj Schofield WPtel: [address] [place], [place] [phone] FOLLOW UP 06/07/2019 Patient Education: [facility] Patient Savings Message - Lisinopril Completed 06/07/2019 Patient Education: Dilantin Extended- [employer] Coupo n [id number] https://www.Risk Ident/sampleGeniusMatcher/resources/getResource/61/xd3v3c55-539h-0047-56 Completed 06/07/2019 Patient Education: phenobarbital- [employer] Coupon [phone] [id number] https://www.Risk Ident/Blue Medora/resources/getResource/61/6848803j-8702-1zkn-s5 Completed 06/07/2019 Visit Plan: Mammogram ordered Patient wi ll find out if her mom's colon resection was due to cancer or other reason--discussed that if was from cancer then is due for colonoscopy since should be every 5 years May need pelvic US due to family history of MILL HAND cancers Referral to dermatology for skin check [...] [facility] [phone] [facility] [place] NEW PATIENT 05/03/2019 Referral: Sofía More WPtel: [facility] [address] [facility] [place] Referral Initiated Instructions Comment . Mammogram ordered Patient will find out if her mom's colon resection was due to cancer or other reason--discussed that if was from cancer then is due for colonoscopy since should be every 5 years May need pelvic US due to family history of MILL HAND cancers Referral to dermatology for skin check DtaP up to date Flu shot given Medical Equipment No Medical Equipment data Health Concerns Section Health Concerns data not found Goals Section Goals data not found Interventions Section Interventions data not found Health Status Evaluations/Outcomes Section Health Status Evaluations/Outcomes data not found Advance Directives No Advance Directive data
--- OUTSIDE RECORDS SUMMARY | 2019-10-20 22:37 | XMS REPORT | CCD ---
Author Author Clarissa Schofield D.O. Organization VIRAJ SCHOFIELD DO [facility] Address [address] [place] [address] Phone Care Team Providers Care Pearl Digger Name Role Phone PP Unavailable CCM Unavailable Summary Purpose Interface Exchange Insurance Providers Payer name Policy type / Coverage type Covered republican ID Effective Begin Date Effective End Date Blue Cross Blue Shield Blue Cross/Blue Shield [id number] Unknown Family history Mother Diagnosis Age At Onset Dementia Unknown Macular degeneration Unknown Breast cancer Unknown Sister Diagnosis Age At Onset Macular degeneration Unknown Ovarian cancer Unknown Breast cancer Unknown Social History Social History Element Codes Description Effective Dates Marital status Unknown 05/03/2019 Number of children Unknown 3 05/03/2019 Employment Unknown Retired 05/03/[address]: 020188671 Has never smoked or chewed tobacco 05/03/[address]: 147475 Currently drinks alcohol 05/03 Frequency of drinks SNOMED CT: 016120272 Drinks rarely 019 Has the patient ever [...] Start Date Stop Date Status Fill Instructions Dilantin Extended 100 mg capsule RxNorm: 609165 1-2 Cap gael(s) Oral every night at bedtime 09/21/2019 03/18/2020 Active albuterol sulfate 2.5 mg/3 mL (0.083 %) solution for n ebulization RxNorm: 395655 1 Unit Dose Inhalation four times a day 08/11/2019 No Stop Date A ctive Augmentin 500 mg-125 mg tablet RxNorm: 655538 1 Tablet(s) Oral two times a day 08/11/2019 08/18/2019 Inactive doxycycline hyclate 100 mg capsule RxNorm: 8425633 1 Cap gael(s) Oral two times a day 08/01/2019 08/07/2019 Inactive doxycycline hyclate 100 mg capsule RxNorm: 1744712 1 Cap gael(s) Oral two times a day 08/01/2019 07/31/2019 Inactive hydrochlorothiazide 12.5 mg capsule RxNorm: 795970 1 Capsule(s) Oral QAM 07/19/2019 10/17/2019 Active lisinopril 40 mg tablet RxNorm: 265807 1 Tablet(s) Oral QD 07/19/2007/19/2019 Inactive Zithromax Z-Alex 250 mg tablet RxNorm: 788149 Tablet(s) Oral estefany e as directed 06/29/2019 07/18/2019 Inactive lisinopril 40 mg tablet RxNorm: 195044 1 Tablet(s) Oral QD 06/29/2007/18/2019 Inactive Dilantin Extended 100 mg capsule RxNorm: 649641 1-2 Cap gael(s) Oral every night at bedtime 06/07/2019 09/20/2019 Inactive lisinopril 20 mg tablet RxNorm: 098909 1 Tablet(s) Oral QD 1006/29/2019 Inactive phenobarbital 32.4 mg tablet RxNorm: 767141 1 Tablet(s) Oral every night at bedtime 06/07/2019 09/04/2019 Inactive atorvastatin 10 mg tablet RxNorm: 703380 1 Tablet(s) Oral QD 201811/01/2019 Active atorvastatin 10 mg tablet RxNorm: 937350 1 Tablet(s) Oral QD 201805/05/2019 Inactive Zyrtec 10 mg tablet RxNorm: 0197671 1 Tablet(s) Oral QAM 05/03/2019 No Stop Date Active Fish Oil 1,000 mg (120 mg-180 mg) capsule RxNorm: 1 Caps ule(s) Oral QD 05/03/2019 No Stop Date Active Vitamin D3 5,000 unit tablet RxNorm: 678253 1 Tablet(s) Oral QD No Stop Date Active Centrum 18 mg-400 mcg tablet RxNorm: 1 Tablet(s) Oral QD 05/03 No Stop Date Active Dilantin Extended 100 mg capsule RxNorm: 054200 1-2 Cap gael(s) Oral every night at bedtime 05/03/2019 06/06/2019 Inactive phenobarbital 32.4 mg tablet RxNorm: 952063 1 Tablet(s) Oral every night at bedtime 05/03/2019 06/06/2019 Inactive Medication Administered No Medication Administered data Immunizations Vaccine Codes Date Status Influenza CVX: 141 05/03/2019 Complete Influenza CVX: 141 05/03/2019 Complete Results No Results data Procedures Procedure Codes Date THER/PROPH/DIAG INJ SC/IM CPT-4: 07937 08/11/2019 TRIAMCINOLONE ACET INJ NOS CPT-4: J3301 08/11/2019 CEFTRIAXONE SODIUM INJECTION CPT-4: J0696 08/11/2019 THER/PROPH/DIAG INJ SC/IM CPT-4: 74108 08/11/2019 IIV4 VACC NO PRSV 6 MTHS TO 64 YRS+ IM CPT-4: 37355 05/03/2019 IIV4 VACC NO PRSV 6 MTHS TO 64 YRS+ IM CPT-4: 89619 05/03/2019 IMMUNIZATION ADMIN CPT-4: 58612 05/03/2019 Vital Signs Date Vital 08/11/2019 Blood [...] 1: 146/92 Code: 8480-6 BMI: 32.3 Code: 60250-0 Heart Rate 1: 72 bpm Height: 5'6" Respiratory Rate: 18 bpm SpO2: 98% Tempera ture: 36.8 (C) / 98.2 (F) Weight: 203 lbs Functional Status No Functional Status data Reason For Visit Reason For Visit Effective Dates Notes follow up 08/11/2019 blood pressure check 07/19/2019 high blood pressure 06/29/2019 high blood pressure 06/07/2019 ~generic 05/03/2019 New Patient--[facility] care Encounters Encounter Performer Location Codes Date (23417) OFFICE/OUTPATIENT VISIT EST Diagnosis: Pneumonia due to infectious organism[ICD10: J18.9] Viraj SCHOFIELD [employer] CPT-4: 54269 08/11/2019 ([id number]) OFFICE/OUTPATIENT VISIT EST Diagnosis: Essential hypertension[ICD10: I10] Diagnosis: Sinusitis[ICD10: J32.9] Brittney Triana VIRAJ REYESND PETAR [employer] CPT-4: 02711 06/29/2019 ([id number]) OFFICE/OUTPATIENT VISIT EST Diagnosis: Essential hypertension[ICD10: I10] Virja REYESNDER [employer] CPT-4: 22257 06/07/2019 OFFICE/OUTPATIENT VISIT NEW Diagnosis: FLU VACCINE[ICD10: Z23] Diagnosis: Seizure[ICD10: R56.9] Diagnosis: Knee pain, bilateral[ICD10: M25.561] Diagnosis: Elevated blood pressure reading[ICD10: R03.0] Viraj SCHOFIELD DO [facility] CPT-4: 58728 05/03/2019 Plan of Care Planned Activity Notes Codes Status Date Visit Diagnosis Plan: Pneumonia due to infectious orga nism Discussion: Rocephin 1gm IM and Kenalog 40mg IM Start augementin tomorrow with probiotic BID Start SVNS with albuterol TID to QID Call tomorrow if needs seen or to ER this weekend if worsening ICD-9 : 486 ICD-10 : J18.9 08/11/2019 Appointment: Viraj Schofield WPtel: [address] [place] [address] ACUTE ILLNESS 08/11/2019 Appointment: Viraj Schofieldtel: [address] [place] [address] BP CHECK 07/19/2019 Visit Diagnosis Plan: Sinusitis [...] : I10 06/29/2019 Appointment: Viraj Schofield WPtel: [address] [place], [place] [phone] BP CHECK 06/29/2019 Appointment: Brittney Triana [address] [place], [place] [id number] ACUTE ILLNESS 06/29/2019 Patient Education: [facility] Patient Savings Message - Lisinopril Completed 06/29/2019 Patient Education: High Blood Pressure Co mpleted 06/29/2019 Appointment: [facility] [phone] [facility] [place] did not need appt. Only to come in for BP 3 weeks from previ riri patient. CANCELED 06/28/2019 Visit Diagnosis Plan: Essential hypertension Discussio n: Start lisinopril 20mg daily Monitor home BP Return in 3 weeks for BP check with home readings as well as home cuff ICD-9 : 401.9 ICD-10 : I10 06/07/2019 Appointment: Viraj Schofield WPtel: [address] [facility] [place] FOLLOW UP 06/07/2019 Patient Education: [employer] [facility] martinez Patient Savings Message - Lisinopril Completed 06/07/2019 Patient Education: Dilantin Extended- Opt[employer] Coupo n [id number] https://www.ReachLocal/Your Practical [employer]/resources/getResource/61/aj1w9d19-095u-2630-83 Completed 06/07/2019 Patient Education: phenobarbital- [employer] Coupon 85 [id number] https://www.ReachLocal/[employer]/resources/getResource/61/4568864w-3877-9tyu-l7 Completed 06/07/2019 Visit Plan: Mammogram ordered Patient wi ll find out if her mom's colon resection was due to cancer or other reason--discussed that if was from cancer then is due for colonoscopy since should be every 5 years May need pelvic US due to family 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 Mammogram ordered Patient will find out if her mom's colon resection was due to cancer or other reason--discussed that if was from cancer then is due for colonoscopy since should be every 5 years May need pelvic US due to family history of BACK STRIP MACHINE OPERATOR cancers Referral to dermatology for skin [...]
--- OUTSIDE RECORDS SUMMARY | 2019-10-20 22:37 | XMS REPORT | CCD ---
Author Author Clarissa Schofield D.O. Organization [facility] Address [address] [place] [address] Phone Care Team Providers Care J2Ee Consultant Name Role Phone PP Unavailable CCM Unavailable Summary Purpose Interface Exchange Insurance Providers Payer name Policy type / Coverage type Covered green party ID Effective Begin Date Effective End Date Blue Cross Blue Shield Blue Cross/Blue Shield [id number] Unknown Family history Mother Diagnosis Age At Onset Dementia Unknown Macular degeneration Unknown Breast cancer Unknown Sister Diagnosis Age At Onset Macular degeneration Unknown Ovarian cancer Unknown Breast cancer Unknown Social History Social History Element Codes Description Effective Dates Marital status Unknown 05/03/2019 Number of children Unknown 3 05/03/2019 Employment Unknown Retired 05/03/[address]: 585176999 Has never smoked or chewed tobacco 05/03/[address]: 663702 Currently drinks alcohol 05/03 Frequency of drinks SNOMED CT: 679211422 Drinks rarely 019 Has the patient ever [...] Fill Instructions Macrobid 100 mg capsule RxNorm: 892945 1 Capsule(s) Oral two ti mes a day 10/10/2019 10/13/2019 Active phenobarbital 32.4 mg tablet RxNorm: 458347 1 Tablet(s) Oral every night at bedtime 10/10/2019 04/07/2020 Active Dilantin Extended 100 mg capsule RxNorm: 477664 1-2 Cap gael(s) Oral every night at bedtime 09/21/2019 03/18/2020 Active albuterol sulfate 2.5 mg/3 mL (0.083 %) solution for n ebulization RxNorm: 946218 1 Unit Dose Inhalation four times a day 08/11/2019 10/10/2019 I nactive Augmentin 500 mg-125 mg tablet RxNorm: 919673 1 Tablet(s) Oral two times a day 08/11/2019 08/18/2019 Inactive doxycycline hyclate 100 mg capsule RxNorm: 1481462 1 Cap gael(s) Oral two times a day 08/01/2019 08/07/2019 Inactive doxycycline hyclate 100 mg capsule RxNorm: 1931777 1 Cap gael(s) Oral two times a day 08/01/2019 07/31/2019 Inactive hydrochlorothiazide 12.5 mg capsule RxNorm: 881652 1 Capsule(s) Oral QAM 07/19/2019 10/17/2019 Active lisinopril 40 mg tablet RxNorm: 186803 1 Tablet(s) Oral QD 07/19/20 19 07/19/2019 Inactive Zithromax Z-Alex 250 mg tablet RxNorm: 263516 Tablet(s) Oral estefany e as directed 06/29/2019 07/18/2019 Inactive lisinopril 40 mg tablet RxNorm: 318733 1 Tablet(s) Oral QD 06/29/20 19 07/18/2019 Inactive Dilantin Extended 100 mg capsule RxNorm: 462075 1-2 Cap gael(s) Oral every night at bedtime 06/07/2019 09/20/2019 Inactive lisinopril 20 mg tablet RxNorm: 934874 1 Tablet(s) Oral QD 06/07/20 19 06/29/2019 Inactive phenobarbital 32.4 mg tablet RxNorm: 267886 1 Tablet(s) Oral every night at bedtime 06/07/2019 09/04/2019 Inactive atorvastatin 10 mg tablet RxNorm: 482510 1 Tablet(s) Oral QD 201811/01/2019 Active atorvastatin 10 mg tablet RxNorm: 397805 1 Tablet(s) Oral QD 201805/05/2019 Inactive Zyrtec 10 mg tablet RxNorm: 6108632 1 Tablet(s) Oral QAM 05/03/2019 No Stop Date Active Fish Oil 1,000 mg (120 mg-180 mg) capsule RxNorm: 1 Caps ule(s) Oral QD 05/03/2019 No Stop Date Active Vitamin D3 5,000 unit tablet RxNorm: 020577 1 Tablet(s) Oral QD No Stop Date Active Centrum 18 mg-400 mcg tablet RxNorm: 1 Tablet(s) Oral QD 05/03 No Stop Date Active Dilantin Extended 100 mg capsule RxNorm: 476996 1-2 Cap gael(s) Oral every night at bedtime 05/03/2019 06/06/2019 Inactive phenobarbital 32.4 mg tablet RxNorm: 479075 1 Tablet(s) Oral every night at bedtime 05/03/2019 06/06/2019 Inactive Medication Administered No Medication Administered data Immunizations Vaccine Codes Date Status Influenza CVX: 141 05/03/2019 Complete Influenza CVX: 141 05/03/2019 Complete Results No Results data Procedures Procedure Codes Date URINALYSIS NONAUTO W/O SCOPE CPT-4: 34843 10/10/2019 THER/PROPH/DIAG INJ SC/IM CPT-4: 37157 10/10/2019 CEFTRIAXONE SODIUM INJECTION CPT-4: J0696 10/10/2019 THER/PROPH/DIAG INJ SC/IM CPT-4: 74779 10/10/2019 URINE CULTURE/ COLONY COUNT CPT-4: 50984 10/10/2019 THER/PROPH/DIAG INJ SC/IM CPT-4: 99208 08/11/2019 TRIAMCINOLONE ACET INJ NOS CPT-4: J3301 08/11/2019 CEFTRIAXONE SODIUM INJECTION CPT-4: J0696 08/11/2019 THER/PROPH/DIAG INJ SC/IM CPT-4: 17801 08/11/2019 IIV4 VACC NO PRSV 6 MTHS TO 64 YRS+ IM CPT-4: 00569 05/03/2019 IIV4 VACC NO PRSV 6 MTHS TO 64 YRS+ IM CPT-4: 47557 05/03/2019 IMMUNIZATION ADMIN CPT-4: 07012 05/03/2019 Vital Signs Date Vital 10/10/2019 Blood [...] 1: 146/92 Code: 8480-6 BMI: 32.3 Code: 29870-7 Heart Rate 1: 72 bpm Height: 5'6" [...] care Encounters Encounter Performer Location Codes Date (65692) OFFICE/OUTPATIENT VISIT EST Diagnosis: UTI (urinary tract infection)[ICD10: N39.0] Brittney LOZALINE [employer] [employer] [facility] CPT-4: 37263 10/10/2019 ([id number]) OFFICE/OUTPATIENT VISIT EST Diagnosis: Pneumonia due to infectious organism[ICD10: J18.9] Viraj Juan Pablojaye CALI [employer] [employer] [facility] CPT-4: 05607 08/11/2019 ([id number]) OFFICE/OUTPATIENT VISIT EST Diagnosis: Essential hypertension[ICD10: I10] Diagnosis: Sinusitis[ICD10: J32.9] Brittney LOZALINE [facility] [employer] [place] CPT-4: 44892 06/29/2019 ([id number]) OFFICE/OUTPATIENT VISIT EST Diagnosis: Essential hypertension[ICD10: I10] Viraj Juan Pablojaye MOON [facility] CPT-4: 93960 06/07/2019 OFFICE/OUTPATIENT VISIT NEW Diagnosis: FLU VACCINE[ICD10: Z23] Diagnosis: Seizure[ICD10: R56.9] Diagnosis: Knee pain, bilateral[ICD10: M25.561] Diagnosis: Elevated blood pressure reading[ICD10: R03.0] Viraj Schofield [facility] [employer] [facility] CPT-4: 48571 05/03/2019 Plan of Care Planned Activity Notes [...] J18.9 08/11/2019 Appointment: Viraj Schofield WPtel: [address] [place] [address] ACUTE ILLNESS 08/11/2019 Appointment: Viraj Schofield WPtel: [address] [place] [address] BP CHECK 07/19/2019 Visit Diagnosis Plan: Essential [...] ICD-10 : J32.9 06/29/2019 Appointment: Viraj Schofieldtel: [address] [place], [place] [address] BP CHECK 06/29/2019 Appointment: Brittney Triana [address] [place] [address] ACUTE ILLNESS 06/29/2019 Patient Education: [facility] Patient Savings Message - Lisinopril Completed 06/29/2019 Patient Education: High Blood Pressure Co mpleted 06/29/2019 Appointment: Viraj Schofield WPtel: [address] [place] [address] did not need appt. Only to come in for BP 3 weeks from prevayde vazquezs patient. CANCELED 06/28/2019 Visit Diagnosis Plan: Essential hypertension Discussio n: Start lisinopril 20mg daily Monitor home BP Return in 3 weeks for BP check with home readings as well as home cuff ICD-9 : 401.9 ICD-10 : I10 06/07/2019 Appointment: Viraj Schofield WPtel: [address] [facility] FOLLOW UP 06/07/2019 Patient Education: [facility] Doshi juan Patient Savings Message - Lisinopril Completed 06/07/2019 Patient Education: Dilantin Extended- OptimizeRX Coupo n [id number] https://www.MomentFeed/sampleKlocwork/resources/getResource/61/gt2m9m04-432d-6433-87 Completed 06/07/2019 Patient Education: phenobarbital- Optimize[employer] Coupon 85 [id number] https://www.MomentFeed/Mamapedia/resources/getResource/61/2262207j-6092-0nvm-k0 Completed 06/07/2019 Visit Plan: Mammogram ordered Patient wi ll find out if her mom's colon resection was due to cancer or other reason--discussed that if was from cancer then is due for colonoscopy since should be every 5 years May need pelvic US due to family history of RN INFUSION cancers Referral to dermatology for skin check [...] M25.561 05/03/2019 Appointment: Viraj Schofield WPtel: [address] [facility] [place] NEW PATIENT 05/03/2019 Referral: Sofía More WPtel: [facility] [address] [facility] [place] Referral Initiated Instructions Comment . Mammogram ordered Patient will find out if her mom's colon resection was due to cancer or other reason--discussed that if was from cancer then is due for colonoscopy since should be every 5 years May need pelvic US due to family history of RN INFUSION cancers Referral to dermatology for skin check DtaP up to date Flu shot given Medical Equipment No Medical Equipment data Health Concerns Section Health Concerns data not found Goals Section Goals data not found Interventions Section Interventions data not found Health Status Evaluations/Outcomes Section Health Status Evaluations/Outcomes data not found Advance Directives No Advance Directive data
--- OUTSIDE RECORDS SUMMARY | 2019-10-20 22:37 | XMS REPORT | CCD ---
Author Author Clarissa Schofield D.O. Organization [facility] Address [address] [place] [address] Phone Care Team Providers Care Arboreal Scientist Name Role Phone PP Unavailable CCM Unavailable Summary Purpose Interface Exchange Insurance Providers Payer name Policy type / Coverage type Covered alliance party ID Effective Begin Date Effective End Date Blue Cross Blue Shield Blue Cross/Blue Shield [id number] Unknown Family history Mother Diagnosis Age At Onset Dementia Unknown Macular degeneration Unknown Breast cancer Unknown Sister Diagnosis Age At Onset Macular degeneration Unknown Ovarian cancer Unknown Breast cancer Unknown Social History Social History Element Codes Description Effective Dates Marital status Unknown 05/03/2019 Number of children Unknown 3 05/03/2019 Employment Unknown Retired 05/03/[address]: 671289712 Has never smoked or chewed tobacco 05/03/[address]: 427517 Currently drinks alcohol 05/03 Frequency of drinks SNOMED CT: 370129693 Drinks rarely 019 Has the patient ever [...] Fill Instructions Macrobid 100 mg capsule RxNorm: 809861 1 Capsule(s) Oral two ti mes a day 10/10/2019 10/13/2019 Active phenobarbital 32.4 mg tablet RxNorm: 135216 1 Tablet(s) Oral every night at bedtime 10/10/2019 04/07/2020 Active Dilantin Extended 100 mg capsule RxNorm: 966658 1-2 Cap gael(s) Oral every night at bedtime 09/21/2019 03/18/2020 Active albuterol sulfate 2.5 mg/3 mL (0.083 %) solution for n ebulization RxNorm: 385187 1 Unit Dose Inhalation four times a day 08/11/2019 10/10/2019 I nactive Augmentin 500 mg-125 mg tablet RxNorm: 336958 1 Tablet(s) Oral two times a day 08/11/2019 08/18/2019 Inactive doxycycline hyclate 100 mg capsule RxNorm: 2819260 1 Cap gael(s) Oral two times a day 08/01/2019 08/07/2019 Inactive doxycycline hyclate 100 mg capsule RxNorm: 7321829 1 Cap gael(s) Oral two times a day 08/01/2019 07/31/2019 Inactive hydrochlorothiazide 12.5 mg capsule RxNorm: 819855 1 Capsule(s) Oral QAM 07/19/2019 10/17/2019 Active lisinopril 40 mg tablet RxNorm: 103455 1 Tablet(s) Oral QD 07/19/20 19 07/19/2019 Inactive Zithromax Z-Alex 250 mg tablet RxNorm: 831411 Tablet(s) Oral estefany e as directed 06/29/2019 07/18/2019 Inactive lisinopril 40 mg tablet RxNorm: 336038 1 Tablet(s) Oral QD 06/29/20 19 07/18/2019 Inactive Dilantin Extended 100 mg capsule RxNorm: 803863 1-2 Cap gael(s) Oral every night at bedtime 06/07/2019 09/20/2019 Inactive lisinopril 20 mg tablet RxNorm: 258014 1 Tablet(s) Oral QD 06/07/20 19 06/29/2019 Inactive phenobarbital 32.4 mg tablet RxNorm: 026099 1 Tablet(s) Oral every night at bedtime 06/07/2019 09/04/2019 Inactive atorvastatin 10 mg tablet RxNorm: 615316 1 Tablet(s) Oral QD 201811/01/2019 Active atorvastatin 10 mg tablet RxNorm: 794519 1 Tablet(s) Oral QD 201805/05/2019 Inactive Zyrtec 10 mg tablet RxNorm: 2325830 1 Tablet(s) Oral QAM 05/03/2019 No Stop Date Active Fish Oil 1,000 mg (120 mg-180 mg) capsule RxNorm: 1 Caps ule(s) Oral QD 05/03/2019 No Stop Date Active Vitamin D3 5,000 unit tablet RxNorm: 423880 1 Tablet(s) Oral QD No Stop Date Active Centrum 18 mg-400 mcg tablet RxNorm: 1 Tablet(s) Oral QD 05/03 No Stop Date Active Dilantin Extended 100 mg capsule RxNorm: 562637 1-2 Cap gael(s) Oral every night at bedtime 05/03/2019 06/06/2019 Inactive phenobarbital 32.4 mg tablet RxNorm: 652605 1 Tablet(s) Oral every night at bedtime 05/03/2019 06/06/2019 Inactive Medication Administered No Medication Administered data Immunizations Vaccine Codes Date Status Influenza CVX: 141 05/03/2019 Complete Influenza CVX: 141 05/03/2019 Complete Results No Results data Procedures Procedure Codes Date URINALYSIS NONAUTO W/O SCOPE CPT-4: 62960 10/10/2019 THER/PROPH/DIAG INJ SC/IM CPT-4: 13788 10/10/2019 CEFTRIAXONE SODIUM INJECTION CPT-4: J0696 10/10/2019 THER/PROPH/DIAG INJ SC/IM CPT-4: 39949 10/10/2019 URINE CULTURE/ COLONY COUNT CPT-4: 90154 10/10/2019 THER/PROPH/DIAG INJ SC/IM CPT-4: 81748 08/11/2019 TRIAMCINOLONE ACET INJ NOS CPT-4: J3301 08/11/2019 CEFTRIAXONE SODIUM INJECTION CPT-4: J0696 08/11/2019 THER/PROPH/DIAG INJ SC/IM CPT-4: 73611 08/11/2019 IIV4 VACC NO PRSV 6 MTHS TO 64 YRS+ IM CPT-4: 97118 05/03/2019 IIV4 VACC NO PRSV 6 MTHS TO 64 YRS+ IM CPT-4: 90364 05/03/2019 IMMUNIZATION ADMIN CPT-4: 12571 05/03/2019 Vital Signs Date Vital 10/10/2019 Blood [...] 1: 146/92 Code: 8480-6 BMI: 32.3 Code: 52063-3 Heart Rate 1: 72 bpm Height: 5'6" [...] care Encounters Encounter Performer Location Codes Date (65350) OFFICE/OUTPATIENT VISIT EST Diagnosis: UTI (urinary tract infection)[ICD10: N39.0] Brittney LOZALINE CharletteMitch [employer] [facility] CPT-4: 47035 10/10/2019 ([id number]) OFFICE/OUTPATIENT VISIT EST Diagnosis: Pneumonia due to infectious organism[ICD10: J18.9] Viraj Juan Pablojaye CALI [employer] [employer] [facility] CPT-4: 65114 08/11/2019 ([id number]) OFFICE/OUTPATIENT VISIT EST Diagnosis: Essential hypertension[ICD10: I10] Diagnosis: Sinusitis[ICD10: J32.9] Brittney LOZALINE [employer] CPT-4: 25478 06/29/2019 ([id number]) OFFICE/OUTPATIENT VISIT EST Diagnosis: Essential hypertension[ICD10: I10] Viraj Juan Pablojaye MOON [employer] [facility] CPT-4: 31314 06/07/2019 OFFICE/OUTPATIENT VISIT NEW Diagnosis: FLU VACCINE[ICD10: Z23] Diagnosis: Seizure[ICD10: R56.9] Diagnosis: Knee pain, bilateral[ICD10: M25.561] Diagnosis: Elevated blood pressure reading[ICD10: R03.0] Viraj Schofield VIRAJ [employer] [employer] [facility] CPT-4: 96822 05/03/2019 Plan of Care Planned Activity Notes [...] J18.9 08/11/2019 Appointment: Viraj Schofield WPtel: [address] [place] [address] ACUTE ILLNESS 08/11/2019 Appointment: Viraj Schofield WPtel: [address] [place] [address] BP CHECK 07/19/2019 Visit Diagnosis Plan: Essential [...] ICD-10 : J32.9 06/29/2019 Appointment: Viraj Schofieldtel: [address] [place], [place] [address] BP CHECK 06/29/2019 Appointment: Brittney Triana [address] [place] [address] ACUTE ILLNESS 06/29/2019 Patient Education: [facility] juan Patient Savings Message - Lisinopril Completed 06/29/2019 Patient Education: High Blood Pressure Co mpleted 06/29/2019 Appointment: Viraj Schofield WPtel: [address] [place] [address] did not need appt. Only to come in for BP 3 weeks from prevayde vazquezs patient. CANCELED 06/28/2019 Visit Diagnosis Plan: Essential hypertension Discussio n: Start lisinopril 20mg daily Monitor home BP Return in 3 weeks for BP check with home readings as well as home cuff ICD-9 : 401.9 ICD-10 : I10 06/07/2019 Appointment: Viraj Schofield WPtel: [phone] [facility] FOLLOW UP 06/07/2019 Patient Education: [facility] Doshi juan Patient Savings Message - Lisinopril Completed 06/07/2019 Patient Education: Dilantin Extended- OptimizeRX Coupo n [id number] https://www.Crocodile Gold/sampleHire Jungle/resources/getResource/61/gw3u6e81-182p-1215-17 Completed 06/07/2019 Patient Education: phenobarbital- [employer] Coupon 85 [id number] https://www.Crocodile Gold/BlogGlue/resources/getResource/61/0023316n-5474-4ifs-n5 Completed 06/07/2019 Visit Plan: Mammogram ordered Patient wi ll find out if her mom's colon resection was due to cancer or other reason--discussed that if was from cancer then is due for colonoscopy since should be every 5 years May need pelvic US due to family history of STONECUTTER HAND cancers Referral to dermatology for skin [...] M25.561 05/03/2019 Appointment: Viraj Schofield WPtel: [phone] [facility] [place] NEW PATIENT 05/03/2019 Referral: Sofía More WPtel: [facility] [address] [facility] [place] Referral Initiated Instructions Comment . Mammogram ordered Patient will find out if her mom's colon resection was due to cancer or other reason--discussed that if was from cancer then is due for colonoscopy since should be every 5 years May need pelvic US due to family history of STONECUTTER HAND cancers Referral to dermatology for skin [...]
--- OUTSIDE RECORDS SUMMARY | 2019-10-20 22:37 | XMS REPORT | CCD ---
Author Author Clarissa Schofield D.O. Organization VIRAJ SCHOFIELD DO [facility] Address [address] [place] [address] Phone Care Team Providers Care Enrollment Processor Name Role Phone PP Unavailable CCM Unavailable Summary Purpose Interface Exchange Insurance Providers Payer name Policy type / Coverage type Covered libertarian ID Effective Begin Date Effective End Date Blue Cross Blue Shield Blue Cross/Blue Shield [id number] Unknown Family history Mother Diagnosis Age At Onset Dementia Unknown Macular degeneration Unknown Breast cancer Unknown Sister Diagnosis Age At Onset Macular degeneration Unknown Ovarian cancer Unknown Breast cancer Unknown Social History Social History Element Codes Description Effective Dates Marital status Unknown 05/03/2019 Number of children Unknown 3 05/03/2019 Employment Unknown Retired 05/03/[address]: 942145409 Has never smoked or chewed tobacco 05/03/[address]: 994933 Currently drinks alcohol 05/03 Frequency of drinks SNOMED CT: 075188918 Drinks rarely 019 Has the patient ever [...] (0.083 %) solution for n ebulization RxNorm: 763293 1 Unit Dose Inhalation four times a day 08/11/2019 No Stop Date A ctive Augmentin 500 mg-125 mg tablet RxNorm: 428850 1 Tablet(s) Oral two times a day 08/11/2019 08/18/2019 Active doxycycline hyclate 100 mg capsule RxNorm: 5459260 1 Cap gael(s) Oral two times a day 08/01/2019 08/07/2019 Inactive doxycycline hyclate 100 mg capsule RxNorm: 6613765 1 Cap gael(s) Oral two times a day 08/01/2019 07/31/2019 Inactive hydrochlorothiazide 12.5 mg capsule RxNorm: 175378 1 Capsule(s) Oral QAM 07/19/2019 10/17/2019 Active lisinopril 40 mg tablet RxNorm: 260595 1 Tablet(s) Oral QD 07/19/20 19 07/19/2019 Inactive Zithromax Z-Alex 250 mg tablet RxNorm: 780342 Tablet(s) Oral estefany e as directed 06/29/2019 07/18/2019 Inactive lisinopril 40 mg tablet RxNorm: 363734 1 Tablet(s) Oral QD 06/29/20 19 07/18/2019 Inactive Dilantin Extended 100 mg capsule RxNorm: 825434 1-2 Cap gael(s) Oral every night at bedtime 06/07/2019 09/04/2019 Active phenobarbital 32.4 mg tablet RxNorm: 201546 1 Tablet(s) Oral every night at bedtime 06/07/2019 09/04/2019 Active lisinopril 20 mg tablet RxNorm: 516452 1 Tablet(s) Oral QD 06/07/20 19 06/29/2019 Inactive atorvastatin 10 mg tablet RxNorm: 289534 1 Tablet(s) Oral QD 201811/01/2019 Active atorvastatin 10 mg tablet RxNorm: 643396 1 Tablet(s) Oral QD 201805/05/2019 Inactive Zyrtec 10 mg tablet RxNorm: 4863557 1 Tablet(s) Oral QAM 05/03/2019 No Stop Date Active Fish Oil 1,000 mg (120 mg-180 mg) capsule RxNorm: 1 Caps ule(s) Oral QD 05/03/2019 No Stop Date Active Vitamin D3 5,000 unit tablet RxNorm: 608233 1 Tablet(s) Oral QD No Stop Date Active Centrum 18 mg-400 mcg tablet RxNorm: 1 Tablet(s) Oral QD 05/03 No Stop Date Active Dilantin Extended 100 mg capsule RxNorm: 434038 1-2 Cap gael(s) Oral every night at bedtime 05/03/2019 06/06/2019 Inactive phenobarbital 32.4 mg tablet RxNorm: 496525 1 Tablet(s) Oral every night at bedtime 05/03/2019 06/06/2019 Inactive Medication Administered No Medication Administered data Immunizations Vaccine Codes Date Status Influenza CVX: 141 05/03/2019 Complete Influenza CVX: 141 05/03/2019 Complete Results No Results data Procedures Procedure Codes Date THER/PROPH/DIAG INJ SC/IM CPT-4: 12267 08/11/2019 TRIAMCINOLONE ACET INJ NOS CPT-4: J3301 08/11/2019 CEFTRIAXONE SODIUM INJECTION CPT-4: J0696 08/11/2019 THER/PROPH/DIAG INJ SC/IM CPT-4: 14820 08/11/2019 IIV4 VACC NO PRSV 6 MTHS TO 64 YRS+ IM CPT-4: 41472 05/03/2019 IIV4 VACC NO PRSV 6 MTHS TO 64 YRS+ IM CPT-4: 88071 05/03/2019 IMMUNIZATION ADMIN CPT-4: 90854 05/03/2019 Vital Signs Date Vital 08/11/2019 Blood [...] 1: 146/92 Code: 8480-6 BMI: 32.3 Code: 46131-4 Heart Rate 1: 72 bpm Height: 5'6" Respiratory Rate: 18 bpm SpO2: 98% Tempera ture: 36.8 (C) / 98.2 (F) Weight: 203 lbs Functional Status No Functional Status data Reason For Visit Reason For Visit Effective Dates Notes follow up 08/11/2019 blood pressure check 07/19/2019 high blood pressure 06/29/2019 high blood pressure 06/07/2019 ~generic 05/03/2019 [facility] Encounters Encounter Performer Location Codes Date (45117) OFFICE/OUTPATIENT VISIT EST Diagnosis: Pneumonia due to infectious organism[ICD10: J18.9] Viraj SCHOFIELD [facility] CPT-4: 29140 08/11/2019 ([id number]) OFFICE/OUTPATIENT VISIT EST Diagnosis: Essential hypertension[ICD10: I10] Diagnosis: Sinusitis[ICD10: J32.9] Brittney Triana VIRAJ DAVEY [facility] CPT-4: 74124 06/29/2019 ([id number]) OFFICE/OUTPATIENT VISIT EST Diagnosis: Essential hypertension[ICD10: I10] Viraj SCHOFIELD [facility] CPT-4: 97769 06/07/2019 OFFICE/OUTPATIENT VISIT NEW Diagnosis: FLU VACCINE[ICD10: Z23] Diagnosis: Seizure[ICD10: R56.9] Diagnosis: Knee pain, bilateral[ICD10: M25.561] Diagnosis: Elevated blood pressure reading[ICD10: R03.0] Viraj REYESNDER DO [facility] CPT-4: 19904 05/03/2019 Plan of Care Planned Activity Notes Codes Status Date Visit Diagnosis Plan: Pneumonia due to infectious orga nism Discussion: Rocephin 1gm IM and Kenalog 40mg IM Start augementin tomorrow with probiotic BID Start SVNS with albuterol TID to QID Call tomorrow if needs seen or to ER this weekend if worsening ICD-9 : 486 ICD-10 : J18.9 08/11/2019 Appointment: Viraj Schofield WPtel: [address] [place] [address] BP CHECK 07/19/2019 Visit Diagnosis Plan: Essential [...] : J32.9 06/29/2019 Appointment: Viraj Schofield WPtel: [address] [place], [place] [phone] BP CHECK 06/29/2019 Appointment: Brittney Triana [address] [place] [address] ACUTE ILLNESS 06/29/2019 Patient Education: [facility] Patient Savings Message - Lisinopril Completed 06/29/2019 Patient Education: High Blood Pressure Co mpleted 06/29/2019 Appointment: Viraj Schofield WPtel: [address] [place] [address] [place] did not need appt. Only to come in for BP 3 weeks from previ ous patient. CANCELED 06/28/2019 Visit Diagnosis Plan: Essential hypertension Discussio n: Start lisinopril 20mg daily Monitor home BP Return in 3 weeks for BP check with home readings as well as home cuff ICD-9 : 401.9 ICD-10 : I10 06/07/2019 Appointment: Viraj Schofield WPtel: [address] [place], [place] [phone] FOLLOW UP 06/07/2019 Patient Education: [facility] Patient Savings Message - Lisinopril Completed 06/07/2019 Patient Education: Dilantin Extended- [employer] Coupo n [id number] https://www.[employer]/sample[employer]/resources/getResource/61/uy9s4e39-161w-9957-38 Completed 06/07/2019 Patient Education: phenobarbital- [employer] Coupon 85 [id number] https://www.[employer]/resources/getResource/61/2269506m-5378-7gzx-k4 Completed 06/07/2019 Visit Plan: Mammogram ordered Patient wi ll find out if her mom's colon resection was due to cancer or other reason--discussed that if was from cancer then is due for colonoscopy since should be every 5 years May need pelvic US due to family history of PH[employer]Y TECH[employer]ICIAN TRAIN[employer] cancers Referral to dermatology for skin check [...] M25.561 05/03/2019 App[facility]ment: [facility] [address] [facility] [place] NEW PATIENT 05/03/2019 Referral: Sofía More WPtel: [facility] [address] [facility] [place] Referral Initiated Instructions Comment . Mammogram ordered Patient will find out if her mom's colon resection was due to cancer or other reason--discussed that if was from cancer then is due for colonoscopy since should be every 5 years May need pelvic US due to family history of PH[employer]Y TECH[employer]ICIAN [employer]IN[employer] cancers Referral to dermatology for skin check DtaP up to date Flu shot given Medical Equipment No Medical Equipment data Health Concerns Section Health Concerns data not found Goals Section Goals data not found Interventions Section Interventions data not found Health Status Evaluations/Outcomes Section Health Status Evaluations/Outcomes data not found Advance Directives No Advance Directive data
--- OUTSIDE RECORDS SUMMARY | 2019-10-20 22:37 | XMS REPORT | CCD ---
Author Author Clarissa Schofield D.O. Organization VIRAJ SCHOFIELD DO [facility] Address [address] [place] [address] Phone Care Team Providers Care Data Integration Analyst Name Role Phone PP Unavailable CCM Unavailable Summary Purpose Interface Exchange Insurance Providers Payer name Policy type / Coverage type Covered green party ID Effective Begin Date Effective End Date Blue Cross Blue Shield Blue Cross/Blue Shield [id number] Unknown Family history Mother Diagnosis Age At Onset Dementia Unknown Macular degeneration Unknown Breast cancer Unknown Sister Diagnosis Age At Onset Macular degeneration Unknown Ovarian cancer Unknown Breast cancer Unknown Social History Social History Element Codes Description Effective Dates Marital status Unknown 05/03/2019 Number of children Unknown 3 05/03/2019 Employment Unknown Retired 05/03/[address]: 512700777 Has never smoked or chewed tobacco 05/03/[address]: 662877 Currently drinks alcohol 05/03 Frequency of drinks SNOMED CT: 468560979 Drinks rarely 019 Has the patient ever [...] (0.083 %) solution for n ebulization RxNorm: 211379 1 Unit Dose Inhalation four times a day 08/11/2019 No Stop Date A ctive Augmentin 500 mg-125 mg tablet RxNorm: 639797 1 Tablet(s) Oral two times a day 08/11/2019 08/18/2019 Active doxycycline hyclate 100 mg capsule RxNorm: 0584192 1 Cap gael(s) Oral two times a day 08/01/2019 08/07/2019 Inactive doxycycline hyclate 100 mg capsule RxNorm: 0582386 1 Cap gael(s) Oral two times a day 08/01/2019 07/31/2019 Inactive hydrochlorothiazide 12.5 mg capsule RxNorm: 657101 1 Capsule(s) Oral QAM 07/19/2019 10/17/2019 Active lisinopril 40 mg tablet RxNorm: 110200 1 Tablet(s) Oral QD 07/19/20 19 07/19/2019 Inactive Zithromax Z-Alex 250 mg tablet RxNorm: 453800 Tablet(s) Oral estefany e as directed 06/29/2019 07/18/2019 Inactive lisinopril 40 mg tablet RxNorm: 871318 1 Tablet(s) Oral QD 06/29/20 19 07/18/2019 Inactive Dilantin Extended 100 mg capsule RxNorm: 787179 1-2 Cap gael(s) Oral every night at bedtime 06/07/2019 09/04/2019 Active phenobarbital 32.4 mg tablet RxNorm: 443986 1 Tablet(s) Oral every night at bedtime 06/07/2019 09/04/2019 Active lisinopril 20 mg tablet RxNorm: 844727 1 Tablet(s) Oral QD 06/07/20 19 06/29/2019 Inactive atorvastatin 10 mg tablet RxNorm: 724166 1 Tablet(s) Oral QD 201811/01/2019 Active atorvastatin 10 mg tablet RxNorm: 573714 1 Tablet(s) Oral QD 201805/05/2019 Inactive Zyrtec 10 mg tablet RxNorm: 9605939 1 Tablet(s) Oral QAM 05/03/2019 No Stop Date Active Fish Oil 1,000 mg (120 mg-180 mg) capsule RxNorm: 1 Caps ule(s) Oral QD 05/03/2019 No Stop Date Active Vitamin D3 5,000 unit tablet RxNorm: 946826 1 Tablet(s) Oral QD No Stop Date Active Centrum 18 mg-400 mcg tablet RxNorm: 1 Tablet(s) Oral QD 05/03 No Stop Date Active Dilantin Extended 100 mg capsule RxNorm: 278172 1-2 Cap gael(s) Oral every night at bedtime 05/03/2019 06/06/2019 Inactive phenobarbital 32.4 mg tablet RxNorm: 022425 1 Tablet(s) Oral every night at bedtime 05/03/2019 06/06/2019 Inactive Medication Administered No Medication Administered data Immunizations Vaccine Codes Date Status Influenza CVX: 141 05/03/2019 Complete Influenza CVX: 141 05/03/2019 Complete Results No Results data Procedures Procedure Codes Date THER/PROPH/DIAG INJ SC/IM CPT-4: 08879 08/11/2019 TRIAMCINOLONE ACET INJ NOS CPT-4: J3301 08/11/2019 CEFTRIAXONE SODIUM INJECTION CPT-4: J0696 08/11/2019 THER/PROPH/DIAG INJ SC/IM CPT-4: 33843 08/11/2019 IIV4 VACC NO PRSV 6 MTHS TO 64 YRS+ IM CPT-4: 66155 05/03/2019 IIV4 VACC NO PRSV 6 MTHS TO 64 YRS+ IM CPT-4: 29728 05/03/2019 IMMUNIZATION ADMIN CPT-4: 16193 05/03/2019 Vital Signs Date Vital 08/11/2019 Blood [...] 1: 146/92 Code: 8480-6 BMI: 32.3 Code: 86634-9 Heart Rate 1: 72 bpm Height: 5'6" Respiratory Rate: 18 bpm SpO2: 98% Tempera ture: 36.8 (C) / 98.2 (F) Weight: 203 lbs Functional Status No Functional Status data Reason For Visit Reason For Visit Effective Dates Notes follow up 08/11/2019 blood pressure check 07/19/2019 high blood pressure 06/29/2019 high blood pressure 06/07/2019 ~generic 05/03/2019 New Patient--[facility] care Encounters Encounter Performer Location Codes Date (92270) OFFICE/OUTPATIENT VISIT EST Diagnosis: Pneumonia due to infectious organism[ICD10: J18.9] Viraj SCHOFIELD [employer] CPT-4: 91729 08/11/2019 (97650) OFFICE/OUTPATIENT VISIT EST Diagnosis: Essential hypertension[ICD10: I10] Diagnosis: Sinusitis[ICD10: J32.9] Brittney Triana VIRAJ DAVEY [employer] CPT-4: 08608 06/29/2019 (14804) OFFICE/OUTPATIENT VISIT EST Diagnosis: Essential hypertension[ICD10: I10] Viraj SCHOFIELD [employer] CPT-4: 44077 06/07/2019 OFFICE/OUTPATIENT VISIT NEW Diagnosis: FLU VACCINE[ICD10: Z23] Diagnosis: Seizure[ICD10: R56.9] Diagnosis: Knee pain, bilateral[ICD10: M25.561] Diagnosis: Elevated blood pressure reading[ICD10: R03.0] Viraj REYESNDER DO [facility] CPT-4: 67967 05/03/2019 Plan of Care Planned Activity Notes Codes Status Date Visit Diagnosis Plan: Pneumonia due to infectious orga nism Discussion: Rocephin 1gm IM and Kenalog 40mg IM Start augementin tomorrow with probiotic BID Start SVNS with albuterol TID to QID Call tomorrow if needs seen or to ER this weekend if worsening ICD-9 : 486 ICD-10 : J18.9 08/11/2019 Appointment: Viraj Schofield WPtel: [address] [place] [address] BP CHECK 07/19/2019 Visit Diagnosis Plan: Essential [...] : J32.9 06/29/2019 Appointment: Viraj Schofield WPtel: [address] [place], [place] [phone] BP CHECK 06/29/2019 Appointment: Brittney Triana [address] [place] [address] ACUTE ILLNESS 06/29/2019 Patient Education: [facility] Patient Savings Message - Lisinopril Completed 06/29/2019 Patient Education: High Blood Pressure Co mpleted 06/29/2019 Appointment: Viraj Schofield WPtel: [address] [place] [address] [place] did not need appt. Only to come in for BP 3 weeks from previ ous patient. CANCELED 06/28/2019 Visit Diagnosis Plan: Essential hypertension Discussio n: Start lisinopril 20mg daily Monitor home BP Return in 3 weeks for BP check with home readings as well as home cuff ICD-9 : 401.9 ICD-10 : I10 06/07/2019 Appointment: Viraj Schofield WPtel: [address] [place], [place] [phone] FOLLOW UP 06/07/2019 Patient Education: [facility] Patient Savings Message - Lisinopril Completed 06/07/2019 Patient Education: Dilantin Extended- [employer] Coupo n [id number] https://www.[employer]/sample[employer]/resources/getResource/61/vu8j3c92-218g-7901-29 Completed 06/07/2019 Patient Education: phenobarbital- [employer] Coupon 85 [id number] https://www.[employer]/resources/getResource/61/1311774k-9057-1kyo-q6 Completed 06/07/2019 Visit Plan: Mammogram ordered Patient wi ll find out if her mom's colon resection was due to cancer or other reason--discussed that if was from cancer then is due for colonoscopy since should be every 5 years May need pelvic US due to family history of [employer] ENGINE AS[employer]BLER cancers Referral to dermatology for skin check [...] M25.561 05/03/2019 Appointment: [facility] Schofield [facility] [phone] [facility] [place] NEW PATIENT 05/03/2019 Referral: Sofía More WPtel: [facility] [address] [facility] [place] Referral Initiated Instructions Comment . Mammogram ordered Patient will find out if her mom's colon resection was due to cancer or other reason--discussed that if was from cancer then is due for colonoscopy since should be every 5 years May need pelvic US due to family history of TRUCK [employer]INE [employer]ER cancers Referral to dermatology for skin check DtaP up to date Flu shot given Medical Equipment No Medical Equipment data Health Concerns Section Health Concerns data not found Goals Section Goals data not found Interventions Section Interventions data not found Health Status Evaluations/Outcomes Section Health Status Evaluations/Outcomes data not found Advance Directives No Advance Directive data
--- OUTSIDE RECORDS SUMMARY | 2019-10-20 22:37 | XMS REPORT | CCD ---
Author Author Clarissa Schofield D.O. Organization VIRAJ SCHOFIELD DO [facility] Address [address] [place] [address] Phone Care Team Providers Care Special Education Coordinator Name Role Phone PP Unavailable CCM Unavailable Summary Purpose Interface Exchange Insurance Providers Payer name Policy type / Coverage type Covered alliance party ID Effective Begin Date Effective End Date Blue Cross Blue Shield Blue Cross/Blue Shield [id number] Unknown Family history Mother Diagnosis Age At Onset Dementia Unknown Macular degeneration Unknown Breast cancer Unknown Sister Diagnosis Age At Onset Macular degeneration Unknown Ovarian cancer Unknown Breast cancer Unknown Social History Social History Element Codes Description Effective Dates Marital status Unknown 05/03/2019 Number of children Unknown 3 05/03/2019 Employment Unknown Retired 05/03/[address]: 557640508 Has never smoked or chewed tobacco 05/03/[address]: 569811 Currently drinks alcohol 05/03 Frequency of drinks SNOMED CT: 218620919 Drinks rarely 019 Has the patient ever [...] Fill Instructions Macrobid 100 mg capsule RxNorm: 724099 1 Capsule(s) Oral two ti mes a day 10/10/2019 10/13/2019 Active phenobarbital 32.4 mg tablet RxNorm: 937284 1 Tablet(s) Oral every night at bedtime 10/10/2019 04/07/2020 Active Dilantin Extended 100 mg capsule RxNorm: 116075 1-2 Cap agel(s) Oral every night at bedtime 09/21/2019 03/18/2020 Active albuterol sulfate 2.5 mg/3 mL (0.083 %) solution for n ebulization RxNorm: 166535 1 Unit Dose Inhalation four times a day 08/11/2019 10/10/2019 I nactive Augmentin 500 mg-125 mg tablet RxNorm: 633392 1 Tablet(s) Oral two times a day 08/11/2019 08/18/2019 Inactive doxycycline hyclate 100 mg capsule RxNorm: 0715282 1 Cap gael(s) Oral two times a day 08/01/2019 08/07/2019 Inactive doxycycline hyclate 100 mg capsule RxNorm: 2515910 1 Cap gael(s) Oral two times a day 08/01/2019 07/31/2019 Inactive hydrochlorothiazide 12.5 mg capsule RxNorm: 469625 1 Capsule(s) Oral QAM 07/19/2019 10/17/2019 Active lisinopril 40 mg tablet RxNorm: 715840 1 Tablet(s) Oral QD 07/19/20 19 07/19/2019 Inactive Zithromax Z-Alex 250 mg tablet RxNorm: 212510 Tablet(s) Oral estefany e as directed 06/29/2019 07/18/2019 Inactive lisinopril 40 mg tablet RxNorm: 889749 1 Tablet(s) Oral QD 06/29/20 19 07/18/2019 Inactive Dilantin Extended 100 mg capsule RxNorm: 457850 1-2 Cap gael(s) Oral every night at bedtime 06/07/2019 09/20/2019 Inactive lisinopril 20 mg tablet RxNorm: 802638 1 Tablet(s) Oral QD 06/07/20 19 06/29/2019 Inactive phenobarbital 32.4 mg tablet RxNorm: 232057 1 Tablet(s) Oral every night at bedtime 06/07/2019 09/04/2019 Inactive atorvastatin 10 mg tablet RxNorm: 662006 1 Tablet(s) Oral QD 201811/01/2019 Active atorvastatin 10 mg tablet RxNorm: 573416 1 Tablet(s) Oral QD 201805/05/2019 Inactive Zyrtec 10 mg tablet RxNorm: 9954854 1 Tablet(s) Oral QAM 05/03/2019 No Stop Date Active Fish Oil 1,000 mg (120 mg-180 mg) capsule RxNorm: 1 Caps ule(s) Oral QD 05/03/2019 No Stop Date Active Vitamin D3 5,000 unit tablet RxNorm: 483657 1 Tablet(s) Oral QD No Stop Date Active Centrum 18 mg-400 mcg tablet RxNorm: 1 Tablet(s) Oral QD 05/03 No Stop Date Active Dilantin Extended 100 mg capsule RxNorm: 668099 1-2 Cap gael(s) Oral every night at bedtime 05/03/2019 06/06/2019 Inactive phenobarbital 32.4 mg tablet RxNorm: 210588 1 Tablet(s) Oral every night at bedtime 05/03/2019 06/06/2019 Inactive Medication Administered No Medication Administered data Immunizations Vaccine Codes Date Status Influenza CVX: 141 05/03/2019 Complete Influenza CVX: 141 05/03/2019 Complete Results No Results data Procedures Procedure Codes Date URINALYSIS NONAUTO W/O SCOPE CPT-4: 19030 10/10/2019 THER/PROPH/DIAG INJ SC/IM CPT-4: 11157 10/10/2019 CEFTRIAXONE SODIUM INJECTION CPT-4: J0696 10/10/2019 THER/PROPH/DIAG INJ SC/IM CPT-4: 54676 10/10/2019 URINE CULTURE/ COLONY COUNT CPT-4: 04144 10/10/2019 THER/PROPH/DIAG INJ SC/IM CPT-4: 47760 08/11/2019 TRIAMCINOLONE ACET INJ NOS CPT-4: J3301 08/11/2019 CEFTRIAXONE SODIUM INJECTION CPT-4: J0696 08/11/2019 THER/PROPH/DIAG INJ SC/IM CPT-4: 04498 08/11/2019 IIV4 VACC NO PRSV 6 MTHS TO 64 YRS+ IM CPT-4: 18507 05/03/2019 IIV4 VACC NO PRSV 6 MTHS TO 64 YRS+ IM CPT-4: 18626 05/03/2019 IMMUNIZATION ADMIN CPT-4: 47179 05/03/2019 Vital Signs Date Vital 10/10/2019 Blood [...] 1: 146/92 Code: 8480-6 BMI: 32.3 Code: 95923-4 Heart Rate 1: 72 bpm Height: 5'6" [...] care Encounters Encounter Performer Location Codes Date (46113) OFFICE/OUTPATIENT VISIT EST Diagnosis: UTI (urinary tract infection)[ICD10: N39.0] Brittney LOZALINE [employer]itch [employer] [facility] CPT-4: 41135 10/10/2019 ([id number]) OFFICE/OUTPATIENT VISIT EST Diagnosis: Pneumonia due to infectious organism[ICD10: J18.9] Viraj Juan Pablojaye CALI [employer] [facility] CPT-4: 25668 08/11/2019 ([id number]) OFFICE/OUTPATIENT VISIT EST Diagnosis: Essential hypertension[ICD10: I10] Diagnosis: Sinusitis[ICD10: J32.9] rBittney LOZALINE [employer] CPT-4: 11976 06/29/2019 ([id number]) OFFICE/OUTPATIENT VISIT EST Diagnosis: Essential hypertension[ICD10: I10] Viraj Juan Pablojaye MOON [employer] [facility] CPT-4: 88204 06/07/2019 OFFICE/OUTPATIENT VISIT NEW Diagnosis: FLU VACCINE[ICD10: Z23] Diagnosis: Seizure[ICD10: R56.9] Diagnosis: Knee pain, bilateral[ICD10: M25.561] Diagnosis: Elevated blood pressure reading[ICD10: R03.0] Viraj Schofield VIRAJ [employer] [facility] CPT-4: 68385 05/03/2019 Plan of Care Planned Activity Notes [...] : J18.9 08/11/2019 Appointment: Viraj Schofield WPtel: [address] [place] [address] ACUTE ILLNESS 08/11/2019 Appointment: Viraj Schofield WPtel: [address] [place] [address] BP CHECK 07/19/2019 Visit Diagnosis Plan: Essential [...] ICD-10 : J32.9 06/29/2019 Appointment: Viraj Schofieldtel: [address] [place], [place] [address] BP CHECK 06/29/2019 Appointment: Brittney Triana [address] [place] [address] ACUTE ILLNESS 06/29/2019 Patient Education: [facility] C juan Patient Savings Message - Lisinopril Completed 06/29/2019 Patient Education: High Blood Pressure Co mpleted 06/29/2019 Appointment: Viraj Schofield WPtel: [address] [place] [address] did not need appt. Only to come in for BP 3 weeks from prevayde vazquezs patient. CANCELED 06/28/2019 Visit Diagnosis Plan: Essential hypertension Discussio n: Start lisinopril 20mg daily Monitor home BP Return in 3 weeks for BP check with home readings as well as home cuff ICD-9 : 401.9 ICD-10 : I10 06/07/2019 Appointment: Viraj Schofield WPtel: [address] [facility] FOLLOW UP 06/07/2019 Patient Education: [facility] [employer] Doshi juan Patient Savings Message - Lisinopril Completed 06/07/2019 Patient Education: Dilantin Extended- OptimizeRX Coupo n [id number] https://www.[employer]/resources/getResource/61/qj7o4e95-307v-8422-57 Completed 06/07/2019 Patient Education: phenobarbital- Optimize[employer] Coupon 85 [id number] https://www.[employer]/resources/getResource/61/5752503h-2205-1abb-t0 Completed 06/07/2019 Visit Plan: Mammogram ordered Patient wi ll find out if her mom's colon resection was due to cancer or other reason--discussed that if was from cancer then is due for colonoscopy since should be every 5 years May need pelvic US due to family history of CLEAR[place] DIVER cancers Referral to dermatology for skin check [...] M25.561 05/03/2019 Appointment: Viraj Schofield WPtel: [address] [facility] [place] NEW PATIENT 05/03/2019 Referral: Sofía More WPtel: [facility] [address] [facility] [place] Referral Initiated Instructions Comment . Mammogram ordered Patient will find out if her mom's colon resection was due to cancer or other reason--discussed that if was from cancer then is due for colonoscopy since should be every 5 years May need pelvic US due to family history of [place] D[place] cancers Referral to dermatology for skin check DtaP up to date Flu shot given Medical Equipment No Medical Equipment data Health Concerns Section Health Concerns data not found Goals Section Goals data not found Interventions Section Interventions data not found Health Status Evaluations/Outcomes Section Health Status Evaluations/Outcomes data not found Advance Directives No Advance Directive data
--- OUTSIDE RECORDS SUMMARY | 2019-10-20 22:38 | XMS REPORT | CCD ---
Author Author Clarissa Schofield D.O. Organization [facility]IR[facility] S[facility]FIELD DO [facility] Address [address] [place] [address] Phone Care Team Providers Care Package Wrapper Name Role Phone PP Unavailable CCM Unavailable Summary Purpose Interface Exchange Insurance Providers Payer name Policy type / Coverage type Covered democrat ID Effective Begin Date Effective End Date Blue Cross Blue Shield Blue Cross/Blue Shield [id number] Unknown Family history Mother Diagnosis Age At Onset Dementia Unknown Macular degeneration Unknown Breast cancer Unknown Sister Diagnosis Age At Onset Macular degeneration Unknown Ovarian cancer Unknown Breast cancer Unknown Social History Social History Element Codes Description Effective Dates Marital status Unknown 05/03/2019 Number of children Unknown 3 05/03/2019 Employment Unknown Retired 05/03/[address]: 114019230 Has never smoked or chewed tobacco 05/03/[address]: 455003 Currently drinks alcohol 05/03 Frequency of drinks SNOMED CT: 512630921 Drinks rarely 019 Has the patient ever [...] (0.083 %) solution for n ebulization RxNorm: 553948 1 Unit Dose Inhalation four times a day 08/11/2019 No Stop Date A ctive Augmentin 500 mg-125 mg tablet RxNorm: 281664 1 Tablet(s) Oral two times a day 08/11/2019 08/18/2019 Active doxycycline hyclate 100 mg capsule RxNorm: 5499307 1 Cap gael(s) Oral two times a day 08/01/2019 08/07/2019 Inactive doxycycline hyclate 100 mg capsule RxNorm: 7514993 1 Cap gael(s) Oral two times a day 08/01/2019 07/31/2019 Inactive hydrochlorothiazide 12.5 mg capsule RxNorm: 265101 1 Capsule(s) Oral QAM 07/19/2019 10/17/2019 Active lisinopril 40 mg tablet RxNorm: 740909 1 Tablet(s) Oral QD 07/19/20 19 07/19/2019 Inactive Zithromax Z-Alex 250 mg tablet RxNorm: 010231 Tablet(s) Oral estefany e as directed 06/29/2019 07/18/2019 Inactive lisinopril 40 mg tablet RxNorm: 823632 1 Tablet(s) Oral QD 06/29/20 19 07/18/2019 Inactive Dilantin Extended 100 mg capsule RxNorm: 040284 1-2 Cap gael(s) Oral every night at bedtime 06/07/2019 09/04/2019 Active phenobarbital 32.4 mg tablet RxNorm: 455254 1 Tablet(s) Oral every night at bedtime 06/07/2019 09/04/2019 Active lisinopril 20 mg tablet RxNorm: 148419 1 Tablet(s) Oral QD 06/07/20 19 06/29/2019 Inactive atorvastatin 10 mg tablet RxNorm: 328860 1 Tablet(s) Oral QD 201811/01/2019 Active atorvastatin 10 mg tablet RxNorm: 562011 1 Tablet(s) Oral QD 201805/05/2019 Inactive Zyrtec 10 mg tablet RxNorm: 8436859 1 Tablet(s) Oral QAM 05/03/2019 No Stop Date Active Fish Oil 1,000 mg (120 mg-180 mg) capsule RxNorm: 1 Caps ule(s) Oral QD 05/03/2019 No Stop Date Active Vitamin D3 5,000 unit tablet RxNorm: 782358 1 Tablet(s) Oral QD No Stop Date Active Centrum 18 mg-400 mcg tablet RxNorm: 1 Tablet(s) Oral QD 05/03 No Stop Date Active Dilantin Extended 100 mg capsule RxNorm: 423945 1-2 Cap gael(s) Oral every night at bedtime 05/03/2019 06/06/2019 Inactive phenobarbital 32.4 mg tablet RxNorm: 285056 1 Tablet(s) Oral every night at bedtime 05/03/2019 06/06/2019 Inactive Medication Administered No Medication Administered data Immunizations Vaccine Codes Date Status Influenza CVX: 141 05/03/2019 Complete Influenza CVX: 141 05/03/2019 Complete Results No Results data Procedures Procedure Codes Date THER/PROPH/DIAG INJ SC/IM CPT-4: 26887 08/11/2019 TRIAMCINOLONE ACET INJ NOS CPT-4: J3301 08/11/2019 CEFTRIAXONE SODIUM INJECTION CPT-4: J0696 08/11/2019 THER/PROPH/DIAG INJ SC/IM CPT-4: 63269 08/11/2019 IIV4 VACC NO PRSV 6 MTHS TO 64 YRS+ IM CPT-4: 37288 05/03/2019 IIV4 VACC NO PRSV 6 MTHS TO 64 YRS+ IM CPT-4: 27953 05/03/2019 IMMUNIZATION ADMIN CPT-4: 09007 05/03/2019 Vital Signs Date Vital 08/11/2019 Blood [...] 1: 146/92 Code: 8480-6 BMI: 32.3 Code: 64835-7 Heart Rate 1: 72 bpm Height: 5'6" Respiratory Rate: 18 bpm SpO2: 98% Tempera ture: 36.8 (C) / 98.2 (F) Weight: 203 lbs Functional Status No Functional Status data Reason For Visit Reason For Visit Effective Dates Notes follow up 08/11/2019 blood pressure check 07/19/2019 high blood pressure 06/29/2019 high blood pressure 06/07/2019 ~generic 05/03/2019 New Patient--[facility] care Encounters Encounter Performer Location Codes Date (78137) OFFICE/OUTPATIENT VISIT EST Diagnosis: Pneumonia due to infectious organism[ICD10: J18.9] Viraj SCHOFIELD [facility] CPT-4: 01175 08/11/2019 (27144) OFFICE/OUTPATIENT VISIT EST Diagnosis: Essential hypertension[ICD10: I10] Diagnosis: Sinusitis[ICD10: J32.9] Brittney Triana VIRAJ DAVEY [employer] [facility] CPT-4: 63664 06/29/2019 (23290) OFFICE/OUTPATIENT VISIT EST Diagnosis: Essential hypertension[ICD10: I10] Viraj SCHOFIELD [facility] CPT-4: 12559 06/07/2019 OFFICE/OUTPATIENT VISIT NEW Diagnosis: FLU VACCINE[ICD10: Z23] Diagnosis: Seizure[ICD10: R56.9] Diagnosis: Knee pain, bilateral[ICD10: M25.561] Diagnosis: Elevated blood pressure reading[ICD10: R03.0] Viraj REYESNDER DO [facility] CPT-4: 56790 05/03/2019 Plan of Care Planned Activity Notes Codes Status Date Visit Diagnosis Plan: Pneumonia due to infectious orga nism Discussion: Rocephin 1gm IM and Kenalog 40mg IM Start augementin tomorrow with probiotic BID Start SVNS with albuterol TID to QID Call tomorrow if needs seen or to ER this weekend if worsening ICD-9 : 486 ICD-10 : J18.9 08/11/2019 Appointment: Viraj Schofield WPtel: [address] [place] [address] US BP CHECK 07/19/2019 Visit Diagnosis Plan: Sinusitis [...] : I10 06/29/2019 Appointment: Viraj Schofield WPtel: [address] [place], [place] [address] BP CHECK 06/29/2019 Appointment: Brittney Triana [address] [place] [address] ACUTE ILLNESS 06/29/2019 Patient Education: [facility] [employer] juan Patient Savings Message - Lisinopril Completed 06/29/2019 Patient Education: High Blood Pressure Co mpleted 06/29/2019 Appointment: Viraj Schofield WPtel: [address] [place] [address] [place] did not need appt. Only to come in for BP 3 weeks from previ ous patient. CANCELED 06/28/2019 Visit Diagnosis Plan: Essential hypertension Discussio n: Start lisinopril 20mg daily Monitor home BP Return in 3 weeks for BP check with home readings as well as home cuff ICD-9 : 401.9 ICD-10 : I10 06/07/2019 Appointment: Viraj Schofield WPtel: [address] [place], [place] [id number] FOLLOW UP 06/07/2019 Patient Education: [facility] juan Patient Savings Message - Lisinopril Completed 06/07/2019 Patient Education: Dilantin Extended- OptimizeRX Coupo n [id number] https://www.[employer]/resources/getResource/61/dt0s7t81-638i-3760-43 Completed 06/07/2019 Patient Education: phenobarbital- OptimizeRX Coupon 85 [id number] https://www.[employer] ([employer]/resources/getResource/61/4058551p-1162-9jzd-c2 Completed 06/07/2019 Visit Plan: Mammogram ordered Patient wi ll find out if her mom's colon resection was due to cancer or other reason--discussed that if was from cancer then is due for colonoscopy since should be every 5 years May need pelvic US due to family history of CAS[place] cancers Referral to dermatology for skin check [...] M25.561 05/03/2019 App[facility]ment: [facility] [address] [facility] [facility] NEW [facility]IENT 05/03/2019 Referral: Sofía More WPtel: [facility] [address] [facility] [facility] Referral Initiated Instructions Comment . Mammogram ordered Patient will find out if her mom's colon resection was due to cancer or other reason--discussed that if was from cancer then is due for colonoscopy since should be every 5 years May need pelvic US due to family history of CAS[place] MAN cancers Referral to dermatology for skin check DtaP up to date Flu shot given Medical Equipment No Medical Equipment data Health Concerns Section Health Concerns data not found Goals Section Goals data not found Interventions Section Interventions data not found Health Status Evaluations/Outcomes Section Health Status Evaluations/Outcomes data not found Advance Directives No Advance Directive data
--- OUTSIDE RECORDS SUMMARY | 2019-10-20 22:38 | XMS REPORT | Continuity of Care Document ---
Author Organization Unknown Address Unknown Phone Unavailable Allergies Active Description Code Type Severity Reaction Onset Reported/Identified Relationship to Patient Clinical Status Yes carbamazepine [id number] Geoffrey g Allergy Unknown N/A 10/18/2019 Medications There is no data. Problems Date Dx Coded Attending Type Code Diagnosis Diagnosed By 10/10/2019 W N39.0 UTI (urinary tract infection) Kong, Brittney 10/10/2019 W N39.0 UTI (urinary tract infection) Kong, Brittney 10/10/2019 W N39.0 UTI (urinary tract infection) Kong, Brittney 10/18/2019 W I10 Essent ial hypertension Kong, Brittney 10/18/2019 W N39.0 UTI (urinary tract infection) Kong, Brittney 10/18/2019 W R53.1 Weakness Kong, Brittney 10/18/2019 W R53.83 Fatigue Kong, Brittney 10/18/2019 W R56.9 Seizure Kong, Brittney 10/18/2019 W I10 Essent ial hypertension Kong, Brittney 10/18/2019 W N39.0 UTI (urinary tract infection) Kong, Brittney 10/18/2019 W R53.1 Weakness Kong, Brittney 10/18/2019 W R53.83 Fatigue Kong, Brittney 10/18/2019 W R56.9 Seizure Kong, Brittney 10/19/2019 W I10 Essent ial hypertension Kong, Brittney 10/19/2019 W N39.0 UTI (urinary tract infection) Kong, Brittney 10/19/2019 W R53.1 Weakness Kong, Brittney 10/19/2019 W R53.83 Fatigue Kong, Brittney 10/19/2019 W R56.9 Seizure Kong, Brittney Procedures There is no data. Results Test Result Range Complete blood count (CBC) with automate d white blood cell (WBC) differential - 10/19/19 04:30 Blood leukocytes automated count (number/volume) 11.7 10*3/uL 4.3-11.0 Blood erythrocytes automated count (number/volume) 3.31 10*6/uL 4.35-5.85 Venous blood hemoglobin measurement (mass/volume) 9.7 g/dL 11.5-16.0 Blood hematocrit (volume fraction) 29 % 35-52 Automated erythrocyte mean corpuscular volume 88 [ foz_us] 80-99 Automated erythrocyte mean corpuscular h emoglobin (mass per erythrocyte) 29 pg 25-34 Automated erythrocyte mean corpuscular h emoglobin concentration measurement (mass/volume) 33 g/dL 32-36 Automated erythrocyte distribution width ratio 13. 5 % 10.0- 14.5 Automated blood platelet count (count/volume) 396 10*3/uL 130-400 Automated blood platelet mean volume measurement 8.9 [foz_us] 7.4-10.4 Automated blood neutrophils/100 leukocytes 70 % 42-75 Automated blood lymphocytes/100 leukocytes 15 % 12-44 Blood monocytes/100 leukocytes 9 % 0-12 Automated blood eosinophils/100 leukocytes 6 % 0-10 Automated blood basophils/100 leukocytes 0 % 0-10 Blood neutrophils automated count (number/volume) 8.2 10*3 1.8-7.8 Blood lymphocytes automated count (number/volume) 1.7 10*3 1.0-4.0 Blood monocytes automated count (number/volume) 1. 0 10*3 0.0-1.0 Automated eosinophil count 0.7 10*3/uL 0 .0-0.3 Automated blood basophil count (count/volume) 0.0 10*3/uL 0.0-0.1 Comprehensive metabolic panel - 10/19/19 04:30 Serum or plasma sodium measurement (moles/volume) 135 mmol/L 135-145 Serum or plasma potassium measurement (moles/volume) 3.8 mmol/L 3.6-5.0 Serum or plasma chloride measurement (moles/volume) 99 mmol/L 98-107 Carbon dioxide 25 mmol/L 21-32 Serum or plasma anion gap determination (moles/volume) 11 mmol/L 5-14 Serum or plasma urea nitrogen measurement (mass/volume ) 16 mg/dL 7-18 Serum or plasma creatinine measurement (mass/volume) 1.04 mg/dL 0.60-1.30 Serum or plasma urea nitrogen/creatinine mass ratio 15 NRG Serum or plasma creatinine measurement w ith calculation of estimated glomerular filtration rate 54 NRG Serum or plasma glucose measurement (mass/volume) 110 mg/dL 70-105 Serum or plasma calcium measurement (mass/volume) 8.4 mg/dL 8.5-10.1 Serum or plasma total bilirubin measurement (mass/volu me) 0.2 mg/dL 0.1-1.0 Serum or plasma alkaline phosphatase deisy surement (enzymatic activity/volume) 65 U/L 40-136 Serum or plasma aspartate aminotransfera se measurement (enzymatic activity/volume) 15 U/L 5-34 Serum or plasma alanine aminotransferase measurement (enzymatic activity/volume) 28 U/L 0-55 Serum or plasma protein measurement (mass/volume) 5.8 g/dL 6.4-8.2 Serum or plasma albumin measurement (mass/volume) 3.1 g/dL 3.2-4.5 CALCIUM CORRECTED 9.1 mg/dL 8.5-10.1 Encounters ACCT No. Visit Date/Time Discharge Status Pt. Type Provider Facility Loc./Unit Complaint [id number] 08/11/2019 10:40:34 08/11/2019 23:59:5 9 CLS Outpatient [id number] 10/18/2019 18:46:00 020 13:44:00 DIS Inpatient VIRAJ LAUREN DO S [facility] 4TH UTI [id number] 03/09/2013 08:49:00 013 13:30:00 DIS Outpatient [id number] 03/08/2013 07:44:00 013 23:59:59 CLS Outpatient [id number] 10/18/2019 13:45:[address] Outpatient BRITTNEY CASTRO APRN [facility] CARD FATIGUE,PALPITATIONS
--- OUTSIDE RECORDS SUMMARY | 2019-10-20 22:38 | XMS REPORT | CCD ---
Author Author Clarissa Schofield D.O. Organization [facility] Address [address] [place] [address] Phone Care Team Providers Care Alodize Machine Helper Name Role Phone PP Unavailable CCM Unavailable Summary Purpose Interface Exchange Insurance Providers Payer name Policy type / Coverage type Covered green party ID Effective Begin Date Effective End Date Blue Cross Blue Shield Blue Cross/Blue Shield [id number] Unknown Family history Mother Diagnosis Age At Onset Dementia Unknown Macular degeneration Unknown Breast cancer Unknown Sister Diagnosis Age At Onset Macular degeneration Unknown Ovarian cancer Unknown Breast cancer Unknown Social History Social History Element Codes Description Effective Dates Marital status Unknown 05/03/2019 Number of children Unknown 3 05/03/2019 Employment Unknown Retired 05/03/[address]: 959076232 Has never smoked or chewed tobacco 05/03/[address]: 521421 Currently drinks alcohol 05/03 Frequency of drinks SNOMED CT: 592954691 Drinks rarely 019 Has the patient ever [...] Start Date Stop Date Status Fill Instructions hydrochlorothiazide 12.5 mg capsule RxNorm: 981233 1 Capsule(s) Oral QAM 07/19/2019 10/17/2019 Active lisinopril 40 mg tablet RxNorm: 013978 1 Tablet(s) Oral QD 07/19/20 19 07/19/2019 Inactive Zithromax Z-Alex 250 mg tablet RxNorm: 820812 Tablet(s) Oral estefany e as directed 06/29/2019 07/18/2019 Inactive lisinopril 40 mg tablet RxNorm: 054011 1 Tablet(s) Oral QD 06/29/20 19 07/18/2019 Inactive Dilantin Extended 100 mg capsule RxNorm: 585394 1-2 Cap gael(s) Oral every night at bedtime 06/07/2019 09/04/2019 Active phenobarbital 32.4 mg tablet RxNorm: 201635 1 Tablet(s) Oral every night at bedtime 06/07/2019 09/04/2019 Active lisinopril 20 mg tablet RxNorm: 261110 1 Tablet(s) Oral QD 06/07/20 19 06/29/2019 Inactive atorvastatin 10 mg tablet RxNorm: 247104 1 Tablet(s) Oral QD 201811/01/2019 Active atorvastatin 10 mg tablet RxNorm: 964743 1 Tablet(s) Oral QD 201805/05/2019 Inactive Zyrtec 10 mg tablet RxNorm: 5714577 1 Tablet(s) Oral QAM 05/03/2019 No Stop Date Active Fish Oil 1,000 mg (120 mg-180 mg) capsule RxNorm: 1 Caps ule(s) Oral QD 05/03/2019 No Stop Date Active Vitamin D3 5,000 unit tablet RxNorm: 917219 1 Tablet(s) Oral QD No Stop Date Active Centrum 18 mg-400 mcg tablet RxNorm: 1 Tablet(s) Oral QD 05/03 No Stop Date Active Dilantin Extended 100 mg capsule RxNorm: 216294 1-2 Cap gael(s) Oral every night at bedtime 05/03/2019 06/06/2019 Inactive phenobarbital 32.4 mg tablet RxNorm: 127327 1 Tablet(s) Oral every night at bedtime 05/03/2019 06/06/2019 Inactive Medication Administered No Medication Administered data Immunizations Vaccine Codes Date Status Influenza CVX: 141 05/03/2019 Complete Influenza CVX: 141 05/03/2019 Complete Results No Results data Procedures Procedure Codes Date IIV4 VACC NO PRSV 6 MTHS TO 64 YRS+ IM CPT-4: 42027 05/03/2019 IIV4 VACC NO PRSV 6 MTHS TO 64 YRS+ IM CPT-4: 91456 05/03/2019 IMMUNIZATION ADMIN CPT-4: 41220 05/03/2019 Vital Signs Date Vital 07/19/2019 Blood Pressure 1: 140/88 Code: 8480-6 [...] 1: 146/92 Code: 8480-6 BMI: 32.3 Code: 59373-5 Heart Rate 1: 72 bpm Height: 5'6" Respiratory Rate: 18 bpm SpO2: 98% Tempera ture: 36.8 (C) / 98.2 (F) Weight: 203 lbs Functional Status No Functional Status data Reason For Visit Reason For Visit Effective Dates Notes blood pressure check 07/19/2019 high blood pressure 06/29/2019 high blood pressure 06/07/2019 ~generic 05/03/2019 New Patient--[facility] Encounters Encounter Performer Location Codes Date (37942) OFFICE/OUTPATIENT VISIT EST Diagnosis: Essential hypertension[ICD10: I10] Diagnosis: Sinusitis[ICD10: J32.9] [facility] CPT-4: 42305 06/29/2019 (67256) OFFICE/OUTPATIENT VISIT EST Diagnosis: Essential hypertension[ICD10: I10] Viraj Allisonhyacinth SCHOFIELD [employer] CPT-4: 81467 06/07/2019 OFFICE/OUTPATIENT VISIT NEW Diagnosis: FLU VACCINE[ICD10: Z23] Diagnosis: Seizure[ICD10: R56.9] Diagnosis: Knee pain, bilateral[ICD10: M25.561] Diagnosis: Elevated blood pressure reading[ICD10: R03.0] Virajsanti Allisonhyacinth SCHOFIELD DO [employer] CPT-4: 63013 05/03/2019 Plan of Care Planned Activity Notes Codes Status Date Visit Diagnosis Plan: Essential hypertension Discussio n: [...] : J32.9 06/29/2019 Appointment: Viraj Schofield WPtel: [address] [place] [address] BP CHECK 06/29/2019 Appointment: Brittney Triana [address] [place] [address] ACUTE ILLNESS 06/29/2019 Patient Education: [facility] ju[facility] Patient Savings Message - Lisinopril Completed 06/29/2019 Patient Education: High Blood Pressure Co mpleted 06/29/2019 Appointment: Viraj Schofield WPtel: [address] [place] [address] [place] did not need appt. Only to come in for BP 3 weeks from previ ous patient. CANCELED 06/28/2019 Visit Diagnosis Plan: Essential hypertension Discussio n: Start lisinopril 20mg daily Monitor home BP Return in 3 weeks for BP check with home readings as well as home cuff ICD-9 : 401.9 ICD-10 : I10 06/07/2019 Appointment: [facility] [phone] [facility] FOLLOW UP 06/07/2019 Patient Education: [facility] juan Patient Savings Message - Lisinopril Completed 06/07/2019 Patient Education: Dilantin Extended- OptimizeRX Coupo n [id number] https://www.[employer] (PVT)/resources/getResource/61/hc7k0f13-705a-1668-79 Completed 06/07/2019 Patient Education: phenobarbital- OptimizeRX Coupon 85 666109 https://www.[employer] (PVT)/resources/getResource/61/9558536t-1430-9ntl-r7 Completed 06/07/2019 Visit Plan: Mammogram ordered Patient wi ll find out if her mom's colon resection was due to cancer or other reason--discussed that if was from cancer then is due for colonoscopy since should be every 5 years May need pelvic US due to 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 Mammogram ordered Patient will find out if her mom's colon resection was due to cancer or other reason--discussed that if was from cancer then is due for colonoscopy since should be every 5 years May need pelvic US due to family history of FILTER OPERATOR cancers Referral to dermatology for skin [...]
--- OUTSIDE RECORDS SUMMARY | 2019-10-20 22:38 | XMS REPORT | CCD ---
Author Author Clarissa Schofield D.O. Organization [facility] Address [address] [place] [address] Phone Care Team Providers Care Embedded Systems Developer Name Role Phone PP Unavailable CCM Unavailable Summary Purpose Interface Exchange Insurance Providers Payer name Policy type / Coverage type Covered democrat ID Effective Begin Date Effective End Date Blue Cross Blue Shield Blue Cross/Blue Shield [id number] Unknown Family history Mother Diagnosis Age At Onset Dementia Unknown Macular degeneration Unknown Breast cancer Unknown Sister Diagnosis Age At Onset Macular degeneration Unknown Ovarian cancer Unknown Breast cancer Unknown Social History Social History Element Codes Description Effective Dates Marital status Unknown 05/03/2019 Number of children Unknown 3 05/03/2019 Employment Unknown Retired 05/03/[address]: 848435546 Has never smoked or chewed tobacco 05/03/[address]: 458248 Currently drinks alcohol 05/03 Frequency of drinks SNOMED CT: 395393523 Drinks rarely 019 Has the patient ever [...] Fill Instructions hydrochlorothiazide 12.5 mg capsule RxNorm: 273309 1 Capsule(s) Oral QAM 07/19/2019 10/17/2019 Active lisinopril 40 mg tablet RxNorm: 672933 1 Tablet(s) Oral QD 07/19/20 19 07/19/2019 Inactive Zithromax Z-Alex 250 mg tablet RxNorm: 002478 Tablet(s) Oral estefany e as directed 06/29/2019 07/18/2019 Inactive lisinopril 40 mg tablet RxNorm: 716391 1 Tablet(s) Oral QD 06/29/20 19 07/18/2019 Inactive Dilantin Extended 100 mg capsule RxNorm: 835207 1-2 Cap gael(s) Oral every night at bedtime 06/07/2019 09/04/2019 Active phenobarbital 32.4 mg tablet RxNorm: 845252 1 Tablet(s) Oral every night at bedtime 06/07/2019 09/04/2019 Active lisinopril 20 mg tablet RxNorm: 469413 1 Tablet(s) Oral QD 06/07/20 19 06/29/2019 Inactive atorvastatin 10 mg tablet RxNorm: 449216 1 Tablet(s) Oral QD 201811/01/2019 Active atorvastatin 10 mg tablet RxNorm: 464562 1 Tablet(s) Oral QD 201805/05/2019 Inactive Zyrtec 10 mg tablet RxNorm: 1212981 1 Tablet(s) Oral QAM 05/03/2019 No Stop Date Active Fish Oil 1,000 mg (120 mg-180 mg) capsule RxNorm: 1 Caps ule(s) Oral QD 05/03/2019 No Stop Date Active Vitamin D3 5,000 unit tablet RxNorm: 744995 1 Tablet(s) Oral QD No Stop Date Active Centrum 18 mg-400 mcg tablet RxNorm: 1 Tablet(s) Oral QD 05/03 No Stop Date Active Dilantin Extended 100 mg capsule RxNorm: 694436 1-2 Cap gael(s) Oral every night at bedtime 05/03/2019 06/06/2019 Inactive phenobarbital 32.4 mg tablet RxNorm: 543679 1 Tablet(s) Oral every night at bedtime 05/03/2019 06/06/2019 Inactive Medication Administered No Medication Administered data Immunizations Vaccine Codes Date Status Influenza CVX: 141 05/03/2019 Complete Influenza CVX: 141 05/03/2019 Complete Results No Results data Procedures Procedure Codes Date IIV4 VACC NO PRSV 6 MTHS TO 64 YRS+ IM CPT-4: 63400 05/03/2019 IIV4 VACC NO PRSV 6 MTHS TO 64 YRS+ IM CPT-4: 42214 05/03/2019 IMMUNIZATION ADMIN CPT-4: 97580 05/03/2019 Vital Signs Date Vital 07/19/2019 Blood [...] 1: 146/92 Code: 8480-6 BMI: 32.3 Code: 73506-2 Heart Rate 1: 72 bpm Height: 5'6" Respiratory Rate: 18 bpm SpO2: 98% Tempera ture: 36.8 (C) / 98.2 (F) Weight: 203 lbs Functional Status No Functional Status data Reason For Visit Reason For Visit Effective Dates Notes blood pressure check 07/19/2019 high blood pressure 06/29/2019 high blood pressure 06/07/2019 ~generic 05/03/2019 New Patient--[facility] care Encounters Encounter Performer Location Codes Date (50869) OFFICE/OUTPATIENT VISIT EST Diagnosis: Essential hypertension[ICD10: I10] Diagnosis: Sinusitis[ICD10: J32.9] [facility] CPT-4: 48347 06/29/2019 (53986) OFFICE/OUTPATIENT VISIT EST Diagnosis: Essential hypertension[ICD10: I10] Viraj Allisonhyacinth S[facility]FIELD [facility] CPT-4: 11456 06/07/2019 OFFICE/OUTPATIENT VISIT NEW Diagnosis: FLU VACCINE[ICD10: Z23] Diagnosis: Seizure[ICD10: R56.9] Diagnosis: Knee pain, bilateral[ICD10: M25.561] Diagnosis: Elevated blood pressure reading[ICD10: R03.0] Virajsanti Allisonhyacinth SCHOIFELD DO [facility] CPT-4: 44923 05/03/2019 Plan of Care Planned Activity Notes [...] : J32.9 06/29/2019 Appointment: Viraj Schofield WPtel: [address] [place] [address] BP CHECK 06/29/2019 Appointment: Brittney Triana [address] [place] [address] ACUTE ILLNESS 06/29/2019 Patient Education: [facility] Patient Savings Message - Lisinopril Completed 06/29/2019 Patient Education: High Blood Pressure Co mpleted 06/29/2019 Appointment: Viraj Schofield WPtel: [address] [place] [address] [place] did not need appt. Only to come in for BP 3 weeks from previ ous patient. CANCELED 06/28/2019 Visit Diagnosis Plan: Essential hypertension Discussio n: Start lisinopril 20mg daily Monitor home BP Return in 3 weeks for BP check with home readings as well as home cuff ICD-9 : 401.9 ICD-10 : I10 06/07/2019 Appointment: [facility]el[facility] [phone] [facility] FOLLOW UP 06/07/2019 Patient Education: [facility] juan Patient Savings Message - Lisinopril Completed 06/07/2019 Patient Education: Dilantin Extended- OptimizeRX Coupo n [id number] https://www.[employer] - Smartphone RFID/resources/getResource/61/hj9j0q64-691v-7635-27 Completed 06/07/2019 Patient Education: phenobarbital- OptimizeRX Coupon 85 [id number] https://www.[employer] - Smartphone RFID/resources/getResource/61/4122407f-1832-3oif-x3 Completed 06/07/2019 Visit Plan: Mammogram ordered Patient wi ll find out if her mom's colon resection was due to cancer or other reason--discussed that if was from cancer then is due for colonoscopy since should be every 5 years May need pelvic US due to family 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
--- OUTSIDE RECORDS SUMMARY | 2019-10-20 22:38 | XMS REPORT | Continuity of Care Document ---
Author Author [facility] Organization [facility] Address Unknown Phone Unavailable Care Team Providers Care Anodic Operator Name Role Phone DANIELLA DOYLE DO PP Insurance Providers Payer Name Policy Number Subscriber Name Relationship [facility] [id number] Jovani Shetty 01 Self / Same As Patient Advance Directives Directive Response Recor ded Date Advance Directives Y 10:10am Health Care Power of Residential Builder N 03/09/13 10:10am Organ Donor N 03/09/13 1 0:10am Problems No Known Problems or Medical conditions. Allergies, Adverse Reactions, Alerts Allergen Type Severity Reaction Last Updated carbamazepine Allergy 03/08/13 Medications Medication Dose Units Route Sig Qty Days Meloxicam 1 Each PO DAILY Phenytoin Sodium Extended (Dilantin Brand Name) 100 Mg PO HS 2 Immunizations Name Given Type Date of Pneumonia Vaccine 05/09/12 H Date of Influenza Vaccine 05/09/12 H Response Recorded Date/Time Status not known Unknown Results No Known Relevant Diagnostic Tests, Laboratory Data and/or Discharge Summary.
--- OUTSIDE RECORDS SUMMARY | 2019-10-20 22:38 | XMS REPORT | CCD ---
Author Author Clarissa Schofield D.O. Organization [facility] Address [address] [place] [address] Phone Care Team Providers Care Glass Fitter Name Role Phone PP Unavailable CCM Unavailable Summary Purpose Interface Exchange Insurance Providers Payer name Policy type / Coverage type Covered libertarian ID Effective Begin Date Effective End Date Blue Cross Blue Shield Blue Cross/Blue Shield [id number] Unknown Family history Mother Diagnosis Age At Onset Dementia Unknown Macular degeneration Unknown Breast cancer Unknown Sister Diagnosis Age At Onset Macular degeneration Unknown Ovarian cancer Unknown Breast cancer Unknown Social History Social History Element Codes Description Effective Dates Marital status Unknown 05/03/2019 Number of children Unknown 3 05/03/2019 Employment Unknown Retired 05/03/[address]: 541450730 Has never smoked or chewed tobacco 05/03/[address]: 337064 Currently drinks alcohol 05/03 Frequency of drinks SNOMED CT: 095921720 Drinks rarely 019 Has the patient ever [...] Fill Instructions hydrochlorothiazide 12.5 mg capsule RxNorm: 655656 1 Capsule(s) Oral QAM 07/19/2019 10/17/2019 Active lisinopril 40 mg tablet RxNorm: 830658 1 Tablet(s) Oral QD 07/19/20 19 07/19/2019 Inactive Zithromax Z-Alex 250 mg tablet RxNorm: 653125 Tablet(s) Oral estefany e as directed 06/29/2019 07/18/2019 Inactive lisinopril 40 mg tablet RxNorm: 664678 1 Tablet(s) Oral QD 06/29/20 19 07/18/2019 Inactive Dilantin Extended 100 mg capsule RxNorm: 613341 1-2 Cap gael(s) Oral every night at bedtime 06/07/2019 09/04/2019 Active phenobarbital 32.4 mg tablet RxNorm: 110018 1 Tablet(s) Oral every night at bedtime 06/07/2019 09/04/2019 Active lisinopril 20 mg tablet RxNorm: 350870 1 Tablet(s) Oral QD 06/07/20 19 06/29/2019 Inactive atorvastatin 10 mg tablet RxNorm: 840656 1 Tablet(s) Oral QD 201811/01/2019 Active atorvastatin 10 mg tablet RxNorm: 510572 1 Tablet(s) Oral QD 201805/05/2019 Inactive Zyrtec 10 mg tablet RxNorm: 6115421 1 Tablet(s) Oral QAM 05/03/2019 No Stop Date Active Fish Oil 1,000 mg (120 mg-180 mg) capsule RxNorm: 1 Caps ule(s) Oral QD 05/03/2019 No Stop Date Active Vitamin D3 5,000 unit tablet RxNorm: 254187 1 Tablet(s) Oral QD No Stop Date Active Centrum 18 mg-400 mcg tablet RxNorm: 1 Tablet(s) Oral QD 05/03 No Stop Date Active Dilantin Extended 100 mg capsule RxNorm: 442447 1-2 Cap gael(s) Oral every night at bedtime 05/03/2019 06/06/2019 Inactive phenobarbital 32.4 mg tablet RxNorm: 248185 1 Tablet(s) Oral every night at bedtime 05/03/2019 06/06/2019 Inactive Medication Administered No Medication Administered data Immunizations Vaccine Codes Date Status Influenza CVX: 141 05/03/2019 Complete Influenza CVX: 141 05/03/2019 Complete Results No Results data Procedures Procedure Codes Date IIV4 VACC NO PRSV 6 MTHS TO 64 YRS+ IM CPT-4: 37416 05/03/2019 IIV4 VACC NO PRSV 6 MTHS TO 64 YRS+ IM CPT-4: 74581 05/03/2019 IMMUNIZATION ADMIN CPT-4: 93869 05/03/2019 Vital Signs Date Vital 07/19/2019 Blood [...] 1: 146/92 Code: 8480-6 BMI: 32.3 Code: 66946-2 Heart Rate 1: 72 bpm Height: 5'6" Respiratory Rate: 18 bpm SpO2: 98% Tempera ture: 36.8 (C) / 98.2 (F) Weight: 203 lbs Functional Status No Functional Status data Reason For Visit Reason For Visit Effective Dates Notes blood pressure check 07/19/2019 high blood pressure 06/29/2019 high blood pressure 06/07/2019 ~generic 05/03/2019 New Patient--[facility] care Encounters Encounter Performer Location Codes Date (39219) OFFICE/OUTPATIENT VISIT EST Diagnosis: Essential hypertension[ICD10: I10] Diagnosis: Sinusitis[ICD10: J32.9] [facility] CPT-4: 27812 06/29/2019 (75757) OFFICE/OUTPATIENT VISIT EST Diagnosis: Essential hypertension[ICD10: I10] Viraj Allisonhyacinth S[facility]FIELD [facility] CPT-4: 02714 06/07/2019 OFFICE/OUTPATIENT VISIT NEW Diagnosis: FLU VACCINE[ICD10: Z23] Diagnosis: Seizure[ICD10: R56.9] Diagnosis: Knee pain, bilateral[ICD10: M25.561] Diagnosis: Elevated blood pressure reading[ICD10: R03.0] Virajsanti Allisonhyacinth SCHOFIELD DO [employer] CPT-4: 90762 05/03/2019 Plan of Care Planned Activity Notes [...] : J32.9 06/29/2019 Appointment: Viraj Schofield WPtel: [address] [place] [address] BP CHECK 06/29/2019 Appointment: Brittney Triana [address] [place] [address] ACUTE ILLNESS 06/29/2019 Patient Education: [facility] Patient Savings Message - Lisinopril Completed 06/29/2019 Patient Education: High Blood Pressure Co mpleted 06/29/2019 Appointment: Viraj Schofield WPtel: [address] [place] [address] [place] did not need appt. Only to come in for BP 3 weeks from previ ous patient. CANCELED 06/28/2019 Visit Diagnosis Plan: Essential hypertension Discussio n: Start lisinopril 20mg daily Monitor home BP Return in 3 weeks for BP check with home readings as well as home cuff ICD-9 : 401.9 ICD-10 : I10 06/07/2019 Appointment: [facility]ield [facility]Ptel[facility] [phone] [facility] FOLLOW [facility] 06/07/2019 Patient Education: [facility] ju[facility] Patient Savings Message - Lisinopril Completed 06/07/2019 Patient Education: Dilantin Extended- OptimizeRX Coupo n [id number] https://www.Z-good/Moped/resources/getResource/61/[email or web address]-9223-11 Completed 06/07/2019 Patient Education: phenobarbital- OptimizeRX Coupon 85 [phone] https://www.Z-good/Moped/resources/getResource/61/6346289y-9714-2vwo-j1 Completed 06/07/2019 Visit Plan: Mammogram ordered Patient wi ll find out if her mom's colon resection was due to cancer or other reason--discussed that if was from cancer then is due for colonoscopy since should be every 5 years May need pelvic US due to family history of FINANCIAL INTERN cancers Referral to dermatology for skin check [...] M25.561 05/03/2019 Appointment: Viraj Schofield WPtel: [phone] [facility] [place] NEW PATIENT 05/03/2019 Referral: Sofía More WPtel: [facility] [address] [facility] [place] Referral Initiated Instructions Comment . Mammogram ordered Patient will find out if her mom's colon resection was due to cancer or other reason--discussed that if was from cancer then is due for colonoscopy since should be every 5 years May need pelvic US due to family history of FINANCIAL INTERN cancers Referral to dermatology for skin check DtaP up to date Flu shot given Medical Equipment No Medical Equipment data Health Concerns Section Health Concerns data not found Goals Section Goals data not found Interventions Section Interventions data not found Health Status Evaluations/Outcomes Section Health Status Evaluations/Outcomes data not found Advance Directives No Advance Directive data
--- OUTSIDE RECORDS SUMMARY | 2019-10-20 22:38 | XMS REPORT | CCD ---
Author Author Clarissa Schofield D.O. Organization [facility] Address [address] [place] [address] Phone Care Team Providers Care Loan Inspector Name Role Phone PP Unavailable CCM Unavailable Summary Purpose Interface Exchange Insurance Providers Payer name Policy type / Coverage type Covered alliance party ID Effective Begin Date Effective End Date Blue Cross Blue Shield Blue Cross/Blue Shield [id number] Unknown Family history Mother Diagnosis Age At Onset Dementia Unknown Macular degeneration Unknown Breast cancer Unknown Sister Diagnosis Age At Onset Macular degeneration Unknown Ovarian cancer Unknown Breast cancer Unknown Social History Social History Element Codes Description Effective Dates Marital status Unknown 05/03/2019 Number of children Unknown 3 05/03/2019 Employment Unknown Retired 05/03/[address]: 736013003 Has never smoked or chewed tobacco 05/03/[address]: 475489 Currently drinks alcohol 05/03 Frequency of drinks SNOMED CT: 451184548 Drinks rarely 019 Has the patient ever [...] Fill Instructions hydrochlorothiazide 12.5 mg capsule RxNorm: 239873 1 Capsule(s) Oral QAM 07/19/2019 10/17/2019 Active lisinopril 40 mg tablet RxNorm: 642425 1 Tablet(s) Oral QD 07/19/20 19 07/19/2019 Inactive Zithromax Z-Alex 250 mg tablet RxNorm: 587219 Tablet(s) Oral estefany e as directed 06/29/2019 07/18/2019 Inactive lisinopril 40 mg tablet RxNorm: 853658 1 Tablet(s) Oral QD 06/29/20 19 07/18/2019 Inactive Dilantin Extended 100 mg capsule RxNorm: 804112 1-2 Cap gael(s) Oral every night at bedtime 06/07/2019 09/04/2019 Active phenobarbital 32.4 mg tablet RxNorm: 729833 1 Tablet(s) Oral every night at bedtime 06/07/2019 09/04/2019 Active lisinopril 20 mg tablet RxNorm: 338192 1 Tablet(s) Oral QD 06/07/20 19 06/29/2019 Inactive atorvastatin 10 mg tablet RxNorm: 046968 1 Tablet(s) Oral QD 201811/01/2019 Active atorvastatin 10 mg tablet RxNorm: 635468 1 Tablet(s) Oral QD 201805/05/2019 Inactive Zyrtec 10 mg tablet RxNorm: 4044528 1 Tablet(s) Oral QAM 05/03/2019 No Stop Date Active Fish Oil 1,000 mg (120 mg-180 mg) capsule RxNorm: 1 Caps ule(s) Oral QD 05/03/2019 No Stop Date Active Vitamin D3 5,000 unit tablet RxNorm: 615397 1 Tablet(s) Oral QD No Stop Date Active Centrum 18 mg-400 mcg tablet RxNorm: 1 Tablet(s) Oral QD 05/03 No Stop Date Active Dilantin Extended 100 mg capsule RxNorm: 892483 1-2 Cap gael(s) Oral every night at bedtime 05/03/2019 06/06/2019 Inactive phenobarbital 32.4 mg tablet RxNorm: 619967 1 Tablet(s) Oral every night at bedtime 05/03/2019 06/06/2019 Inactive Medication Administered No Medication Administered data Immunizations Vaccine Codes Date Status Influenza CVX: 141 05/03/2019 Complete Influenza CVX: 141 05/03/2019 Complete Results No Results data Procedures Procedure Codes Date IIV4 VACC NO PRSV 6 MTHS TO 64 YRS+ IM CPT-4: 49342 05/03/2019 IIV4 VACC NO PRSV 6 MTHS TO 64 YRS+ IM CPT-4: 27556 05/03/2019 IMMUNIZATION ADMIN CPT-4: 72195 05/03/2019 Vital Signs Date Vital 07/19/2019 Blood [...] 1: 146/92 Code: 8480-6 BMI: 32.3 Code: 55395-6 Heart Rate 1: 72 bpm Height: 5'6" Respiratory Rate: 18 bpm SpO2: 98% Tempera ture: 36.8 (C) / 98.2 (F) Weight: 203 lbs Functional Status No Functional Status data Reason For Visit Reason For Visit Effective Dates Notes blood pressure check 07/19/2019 high blood pressure 06/29/2019 high blood pressure 06/07/2019 ~generic 05/03/2019 New Patient--[facility] Encounters Encounter Performer Location Codes Date (29584) OFFICE/OUTPATIENT VISIT EST Diagnosis: Essential hypertension[ICD10: I10] Diagnosis: Sinusitis[ICD10: J32.9] [facility] CPT-4: 26716 06/29/2019 (55313) OFFICE/OUTPATIENT VISIT EST Diagnosis: Essential hypertension[ICD10: I10] Viraj Allisonhyacinth SCHOFIELD [employer] CPT-4: 19209 06/07/2019 OFFICE/OUTPATIENT VISIT NEW Diagnosis: FLU VACCINE[ICD10: Z23] Diagnosis: Seizure[ICD10: R56.9] Diagnosis: Knee pain, bilateral[ICD10: M25.561] Diagnosis: Elevated blood pressure reading[ICD10: R03.0] Virajsanti Allisonhyacinth SCHOFIELD DO [employer] CPT-4: 35751 05/03/2019 Plan of Care Planned Activity Notes [...] : J32.9 06/29/2019 Appointment: Viraj Schofield WPtel: [address] [place] [address] BP CHECK 06/29/2019 Appointment: Brittney Triana [address] [place] [address] ACUTE ILLNESS 06/29/2019 Patient Education: [facility] C juan Patient Savings Message - Lisinopril Completed 06/29/2019 Patient Education: High Blood Pressure Co mpleted 06/29/2019 Appointment: Viraj Schofield WPtel: [address] [place] [address] [place] did not need appt. Only to come in for BP 3 weeks from previ ous patient. CANCELED 06/28/2019 Visit Diagnosis Plan: Essential hypertension Discussio n: Start lisinopril 20mg daily Monitor home BP Return in 3 weeks for BP check with home readings as well as home cuff ICD-9 : 401.9 ICD-10 : I10 06/07/2019 Appointment: Viraj Schofield [facility]Ptel[facility] [address] [facility] FOLLOW UP 06/07/2019 Patient Education: [facility] C juan Patient Savings Message - Lisinopril Completed 06/07/2019 Patient Education: Dilantin Extended- OptimizeRX Coupo n [id number] https://www.[employer]/resources/getResource/61/[email or web address] Completed 06/07/2019 Patient Education: phenobarbital- OptimizeRX Coupon 85 [id number] https://www.[employer]/resources/getResource/61/[email or web address]-x5 Completed 06/07/2019 Visit Plan: Mammogram ordered Patient wi ll find out if her mom's colon resection was due to cancer or other reason--discussed that if was from cancer then is due for colonoscopy since should be every 5 years May need pelvic US due to family history of GRINDER AND PLATER cancers Referral to dermatology for skin check [...] Viraj Schofield [facility]Ptel[facility] [address] [facility] [place] NEW PATIENT 05/03/2019 Referral: Sofía More WPtel: [facility] [address] [facility] [place] Referral Initiated Instructions Comment . Mammogram ordered Patient will find out if her mom's colon resection was due to cancer or other reason--discussed that if was from cancer then is due for colonoscopy since should be every 5 years May need pelvic US due to family history of GRINDER AND PLATER cancers Referral to dermatology for skin check DtaP up to date Flu shot given Medical Equipment No Medical Equipment data Health Concerns Section Health Concerns data not found Goals Section Goals data not found Interventions Section Interventions data not found Health Status Evaluations/Outcomes Section Health Status Evaluations/Outcomes data not found Advance Directives No Advance Directive data
--- OUTSIDE RECORDS SUMMARY | 2019-10-20 22:38 | XMS REPORT | CCD ---
Author Author Clarissa Schofield D.O. Organization [facility] Address [address] [place] [address] Phone Care Team Providers Care Waste Transportation Technician Name Role Phone PP Unavailable CCM Unavailable Summary Purpose Interface Exchange Insurance Providers Payer name Policy type / Coverage type Covered constitution party ID Effective Begin Date Effective End Date Blue Cross Blue Shield Blue Cross/Blue Shield [id number] Unknown Family history Mother Diagnosis Age At Onset Dementia Unknown Macular degeneration Unknown Breast cancer Unknown Sister Diagnosis Age At Onset Macular degeneration Unknown Ovarian cancer Unknown Breast cancer Unknown Social History Social History Element Codes Description Effective Dates Marital status Unknown 05/03/2019 Number of children Unknown 3 05/03/2019 Employment Unknown Retired 05/03/[address]: 214977208 Has never smoked or chewed tobacco 05/03/[address]: 408874 Currently drinks alcohol 05/03 Frequency of drinks SNOMED CT: 312539167 Drinks rarely 019 Has the patient ever [...] Start Date Stop Date Status Fill Instructions doxycycline hyclate 100 mg capsule RxNorm: 3148736 1 Cap gael(s) Oral two times a day 08/01/2019 08/07/2019 Active doxycycline hyclate 100 mg capsule RxNorm: 6774175 1 Cap gael(s) Oral two times a day 08/01/2019 07/31/2019 Inactive hydrochlorothiazide 12.5 mg capsule RxNorm: 789370 1 Capsule(s) Oral QAM 07/19/2019 10/17/2019 Active lisinopril 40 mg tablet RxNorm: 316798 1 Tablet(s) Oral QD 07/19/20 19 07/19/2019 Inactive Zithromax Z-Alex 250 mg tablet RxNorm: 997704 Tablet(s) Oral estefany e as directed 06/29/2019 07/18/2019 Inactive lisinopril 40 mg tablet RxNorm: 168403 1 Tablet(s) Oral QD 06/29/20 19 07/18/2019 Inactive Dilantin Extended 100 mg capsule RxNorm: 200354 1-2 Cap gael(s) Oral every night at bedtime 06/07/2019 09/04/2019 Active phenobarbital 32.4 mg tablet RxNorm: 947075 1 Tablet(s) Oral every night at bedtime 06/07/2019 09/04/2019 Active lisinopril 20 mg tablet RxNorm: 487919 1 Tablet(s) Oral QD 06/07/20 19 06/29/2019 Inactive atorvastatin 10 mg tablet RxNorm: 998887 1 Tablet(s) Oral QD 201811/01/2019 Active atorvastatin 10 mg tablet RxNorm: 224690 1 Tablet(s) Oral QD 201805/05/2019 Inactive Zyrtec 10 mg tablet RxNorm: 8601854 1 Tablet(s) Oral QAM 05/03/2019 No Stop Date Active Fish Oil 1,000 mg (120 mg-180 mg) capsule RxNorm: 1 Caps ule(s) Oral QD 05/03/2019 No Stop Date Active Vitamin D3 5,000 unit tablet RxNorm: 924878 1 Tablet(s) Oral QD No Stop Date Active Centrum 18 mg-400 mcg tablet RxNorm: 1 Tablet(s) Oral QD 05/03 No Stop Date Active Dilantin Extended 100 mg capsule RxNorm: 087916 1-2 Cap gael(s) Oral every night at bedtime 05/03/2019 06/06/2019 Inactive phenobarbital 32.4 mg tablet RxNorm: 600480 1 Tablet(s) Oral every night at bedtime 05/03/2019 06/06/2019 Inactive Medication Administered No Medication Administered data Immunizations Vaccine Codes Date Status Influenza CVX: 141 05/03/2019 Complete Influenza CVX: 141 05/03/2019 Complete Results No Results data Procedures Procedure Codes Date IIV4 VACC NO PRSV 6 MTHS TO 64 YRS+ IM CPT-4: 62907 05/03/2019 IIV4 VACC NO PRSV 6 MTHS TO 64 YRS+ IM CPT-4: 42250 05/03/2019 IMMUNIZATION ADMIN CPT-4: 27861 05/03/2019 Vital Signs Date Vital 07/19/2019 Blood [...] 1: 146/92 Code: 8480-6 BMI: 32.3 Code: 08608-8 Heart Rate 1: 72 bpm Height: 5'6" Respiratory Rate: 18 bpm SpO2: 98% Tempera ture: 36.8 (C) / 98.2 (F) Weight: 203 lbs Functional Status No Functional Status data Reason For Visit Reason For Visit Effective Dates Notes blood pressure check 07/19/2019 high blood pressure 06/29/2019 high blood pressure 06/07/2019 ~generic 05/03/2019 New Patient--[facility] Encounters Encounter Performer Location Codes Date (40661) OFFICE/OUTPATIENT VISIT EST Diagnosis: Essential hypertension[ICD10: I10] Diagnosis: Sinusitis[ICD10: J32.9] Brittney Triana VIRAJ Bloivar DAVEY [facility] CPT-4: 53073 06/29/2019 (59653) OFFICE/OUTPATIENT VISIT EST Diagnosis: Essential hypertension[ICD10: I10] Viraj MOON CharletteMitch XIN [facility] CPT-4: 80135 06/07/2019 OFFICE/OUTPATIENT VISIT NEW Diagnosis: FLU VACCINE[ICD10: Z23] Diagnosis: Seizure[ICD10: R56.9] Diagnosis: Knee pain, bilateral[ICD10: M25.561] Diagnosis: Elevated blood pressure reading[ICD10: R03.0] Viraj Schofield VIRAJ CharletteMitch XIN [facility]osph[facility] CPT-4: 07833 05/03/2019 Plan of Care Planned Activity Notes Codes Status Date Appointment: Viraj Schofield WPtel: [address] [place], [place] [address] BP CHECK 07/19/2019 Visit Diagnosis Plan: Essential [...] : J32.9 06/29/2019 Appointment: Viraj Schofield WPtel: [facility] BP CHECK 06/29/2019 Appointment: Brittney Triana [address] [facility] ACUTE ILLNESS 06/29/2019 Patient Education: [employer] C juan Patient Savings Message - Lisinopril Completed 06/29/2019 Patient Education: High Blood Pressure Co mpleted 06/29/2019 Appointment: Viraj [facility]ield [facility]Ptel[facility] [address] [facility] [place] did not need appt. Only to come in for BP 3 weeks from previ ous patient. CANCELED 06/28/2019 Visit Diagnosis Plan: Essential hypertension Discussio n: Start lisinopril 20mg daily Monitor home BP Return in 3 weeks for BP check with home readings as well as home cuff ICD-9 : 401.9 ICD-10 : I10 06/07/2019 Appointment: Viraj Schofield WPtel[facility] [phone] [facility] [place] FOLLOW UP 06/07/2019 Patient Education: [employer] C juan Patient Savings Message - Lisinopril Completed 06/07/2019 Patient Education: Dilantin Extended- OptimizeRX Coupo n [id number] https://www.[employer]/resources/getResource/61/[email or web address] Completed 06/07/2019 Patient Education: phenobarbital- OptimizeRX Coupon [id number] https://www.[employer]/resources/getResource/61/8672840v-[email or web address]-u8 Completed 06/07/2019 Visit Plan: Mammogram ordered Patient wi ll find out if her mom's colon resection was due to cancer or other reason--discussed that if was from cancer then is due for colonoscopy since should be every 5 years May need pelvic US due to family history of REHABILITATION CASEWORKER cancers Referral to dermatology for skin check [...] Appointment: Viraj Schofield WPtel: [address] [id number] NEW PATIENT 05/03/2019 Referral: Sofía More WPtel: [facility] [address] [facility] Referral Initiated Instructions Comment . Mammogram ordered Patient will find out if her mom's colon resection was due to cancer or other reason--discussed that if was from cancer then is due for colonoscopy since should be every 5 years May need pelvic US due to family history of REHABILITATION CASEWORKER cancers Referral to dermatology for skin check DtaP up to date Flu shot given Medical Equipment No Medical Equipment data Health Concerns Section Health Concerns data not found Goals Section Goals data not found Interventions Section Interventions data not found Health Status Evaluations/Outcomes Section Health Status Evaluations/Outcomes data not found Advance Directives No Advance Directive data
--- OUTSIDE RECORDS SUMMARY | 2019-10-20 22:38 | XMS REPORT | CCD ---
Author Author Clarissa Schofield D.O. Organization [facility]IRAJ SCHOFIELD DO [facility] Address [address] [place] [address] Phone Care Team Providers Care Institutional Nutrition Consultant Name Role Phone PP Unavailable CCM Unavailable Summary Purpose Interface Exchange Insurance Providers Payer name Policy type / Coverage type Covered libertarian ID Effective Begin Date Effective End Date Blue Cross Blue Shield Blue Cross/Blue Shield [id number] Unknown Family history Mother Diagnosis Age At Onset Dementia Unknown Macular degeneration Unknown Breast cancer Unknown Sister Diagnosis Age At Onset Macular degeneration Unknown Ovarian cancer Unknown Breast cancer Unknown Social History Social History Element Codes Description Effective Dates Marital status Unknown 05/03/2019 Number of children Unknown 3 05/03/2019 Employment Unknown Retired 05/03/[address]: 483823551 Has never smoked or chewed tobacco 05/03/[address]: 125713 Currently drinks alcohol 05/03 Frequency of drinks SNOMED CT: 954486838 Drinks rarely 019 Has the patient ever [...] Fill Instructions hydrochlorothiazide 12.5 mg capsule RxNorm: 951476 1 Capsule(s) Oral QAM 07/19/2019 10/17/2019 Active lisinopril 40 mg tablet RxNorm: 439616 1 Tablet(s) Oral QD 07/19/20 19 07/19/2019 Inactive Zithromax Z-Alex 250 mg tablet RxNorm: 296269 Tablet(s) Oral estefany e as directed 06/29/2019 07/18/2019 Inactive lisinopril 40 mg tablet RxNorm: 431593 1 Tablet(s) Oral QD 06/29/20 19 07/18/2019 Inactive Dilantin Extended 100 mg capsule RxNorm: 676956 1-2 Cap gael(s) Oral every night at bedtime 06/07/2019 09/04/2019 Active phenobarbital 32.4 mg tablet RxNorm: 609788 1 Tablet(s) Oral every night at bedtime 06/07/2019 09/04/2019 Active lisinopril 20 mg tablet RxNorm: 534171 1 Tablet(s) Oral QD 06/07/20 19 06/29/2019 Inactive atorvastatin 10 mg tablet RxNorm: 196744 1 Tablet(s) Oral QD 201811/01/2019 Active atorvastatin 10 mg tablet RxNorm: 824247 1 Tablet(s) Oral QD 201805/05/2019 Inactive Zyrtec 10 mg tablet RxNorm: 4536636 1 Tablet(s) Oral QAM 05/03/2019 No Stop Date Active Fish Oil 1,000 mg (120 mg-180 mg) capsule RxNorm: 1 Caps ule(s) Oral QD 05/03/2019 No Stop Date Active Vitamin D3 5,000 unit tablet RxNorm: 600449 1 Tablet(s) Oral QD No Stop Date Active Centrum 18 mg-400 mcg tablet RxNorm: 1 Tablet(s) Oral QD 05/03 No Stop Date Active Dilantin Extended 100 mg capsule RxNorm: 166567 1-2 Cap gael(s) Oral every night at bedtime 05/03/2019 06/06/2019 Inactive phenobarbital 32.4 mg tablet RxNorm: 746437 1 Tablet(s) Oral every night at bedtime 05/03/2019 06/06/2019 Inactive Medication Administered No Medication Administered data Immunizations Vaccine Codes Date Status Influenza CVX: 141 05/03/2019 Complete Influenza CVX: 141 05/03/2019 Complete Results No Results data Procedures Procedure Codes Date IIV4 VACC NO PRSV 6 MTHS TO 64 YRS+ IM CPT-4: 87680 05/03/2019 IIV4 VACC NO PRSV 6 MTHS TO 64 YRS+ IM CPT-4: 17697 05/03/2019 IMMUNIZATION ADMIN CPT-4: 75679 05/03/2019 Vital Signs Date Vital 07/19/2019 Blood [...] 1: 146/92 Code: 8480-6 BMI: 32.3 Code: 39276-1 Heart Rate 1: 72 bpm Height: 5'6" Respiratory Rate: 18 bpm SpO2: 98% Tempera ture: 36.8 (C) / 98.2 (F) Weight: 203 lbs Functional Status No Functional Status data Reason For Visit Reason For Visit Effective Dates Notes blood pressure check 07/19/2019 high blood pressure 06/29/2019 high blood pressure 06/07/2019 ~generic 05/03/2019 New Patient--[facility] Encounters Encounter Performer Location Codes Date (08761) OFFICE/OUTPATIENT VISIT EST Diagnosis: Essential hypertension[ICD10: I10] Diagnosis: Sinusitis[ICD10: J32.9] [facility] CPT-4: 22025 06/29/2019 (30539) OFFICE/OUTPATIENT VISIT EST Diagnosis: Essential hypertension[ICD10: I10] Viraj Allisonhyacinth SCHOFIELD [employer] CPT-4: 02520 06/07/2019 OFFICE/OUTPATIENT VISIT NEW Diagnosis: FLU VACCINE[ICD10: Z23] Diagnosis: Seizure[ICD10: R56.9] Diagnosis: Knee pain, bilateral[ICD10: M25.561] Diagnosis: Elevated blood pressure reading[ICD10: R03.0] Virajsanti Allisonhyacinth SCHOFIELD DO [employer] CPT-4: 58820 05/03/2019 Plan of Care Planned Activity Notes [...] : J32.9 06/29/2019 Appointment: Viraj Schofield WPtel: [address] [place] [address] BP CHECK 06/29/2019 Appointment: Brittney Triana [address] [place] [address] ACUTE ILLNESS 06/29/2019 Patient Education: [facility] juan Patient Savings Message - Lisinopril Completed 06/29/2019 Patient Education: High Blood Pressure Co mpleted 06/29/2019 Appointment: Viraj Schofield WPtel: [address] [place] [address] [place] did not need appt. Only to come in for BP 3 weeks from previ ous patient. CANCELED 06/28/2019 Visit Diagnosis Plan: Essential hypertension Discussio n: Start lisinopril 20mg daily Monitor home BP Return in 3 weeks for BP check with home readings as well as home cuff ICD-9 : 401.9 ICD-10 : I10 06/07/2019 Appointment: Vir[facility]Ptel[facility] [address] [facility] FOLLOW UP 06/07/2019 Patient Education: [facility] C juan Patient Savings Message - Lisinopril Completed 06/07/2019 Patient Education: Dilantin Extended- OptimizeRX Coupo n [id number] https://www.[employer]/resources/getResource/61/[email or web address] Completed 06/07/2019 Patient Education: phenobarbital- OptimizeRX Coupon 85 [id number] https://www.[employer]/resources/getResource/61/6994105q-2378-7cvn-b1 Completed 06/07/2019 Visit Plan: Mammogram ordered Patient wi ll find out if her mom's colon resection was due to cancer or other reason--discussed that if was from cancer then is due for colonoscopy since should be every 5 years May need pelvic US due to family history of RUBBER COMPOUNDER FORMULATOR cancers Referral to dermatology for skin check [...] M25.561 05/03/2019 Appointment: Viraj Schofield WPtel: [address] [facility] [place] NEW PATIENT 05/03/2019 Referral: Sofía More WPtel: [facility] [address] [facility] [place] Referral Initiated Instructions Comment . Mammogram ordered Patient will find out if her mom's colon resection was due to cancer or other reason--discussed that if was from cancer then is due for colonoscopy since should be every 5 years May need pelvic US due to family history of RUBBER COMPOUNDER FORMULATOR cancers Referral to dermatology for skin check DtaP up to date Flu shot given Medical Equipment No Medical Equipment data Health Concerns Section Health Concerns data not found Goals Section Goals data not found Interventions Section Interventions data not found Health Status Evaluations/Outcomes Section Health Status Evaluations/Outcomes data not found Advance Directives No Advance Directive data
== END 2019-10-19 13:44 | disposition home or self-care (01) ==
LOC: 4TH 18:45 → 4THo 18:45 → 4TH 18:46 → 4THo 18:46
PROVIDERS: ADMIT Family Medicine; ATTEND Family Medicine
DX: E87.6 Hypokalemia (principal); N39.0 Urinary tract infection, site not specified; E86.0 Dehydration; I10 Essential (primary) hypertension; G40.909 Epilepsy, unspecified, not intractable, without status epilepticus
CPT/HCPCS: 36415; 80053; 85025; 99211; G0378

== ENCOUNTER → 2019-10-18 | Outpatient (CLI) | payer BC ==
[~2019-10-18] MED LIST: ATOR10TA66 PO; BACI1CAP6 PO; CEFD300C3 PO; CETI10TA21 PO; CHOL500061 PO; HYDR12.56 PO; LISI40TA PO; MELO-195 PO; MULT-1106 PO; MULT1TAB60 PO; PHEN100C4 PO; PHEN32.44 PO; SULF1TAB35 PO
== END ==
LOC: CARD 13:45
PROVIDERS: ATTEND Nurse Practitioner Family
DX: R53.83 Other fatigue (principal); R00.2 Palpitations
CPT/HCPCS: 93005

== ENCOUNTER → 2022-03-27 | Outpatient (CLI) | payer MEDICARE, OTHER ==
[~2022-03-27] MED LIST changes: -ACETAMINOPHEN 325 MG TABLET PO PRN; +ATOR10TA66 PO; +BACI1CAP6 PO; +CEFD300C3 PO; +CETI10TA49 PO; +CHOL500061 PO; +HYDR12.56 PO; -KCL 8 MEQ (MICRO K) TABLET PO ONE; +LISI40TA9 PO; -LORazepam INJ 2 MG/ML (ATIVAN) VIAL IVP PRN; +MULT-1106 PO; +MULT1TAB60 PO; -ONDANSETRON 4 MG/2 ML (SDV) Z0FRAN IV PRN; -PATIENT MAY USE OWN MEDS, ALL PO SCH; +PHEN32.44 PO; +SULF1TAB38 PO
[2022-03-27 16:09] LABS: BASOPHILS # (AUTO) 0.1 10^3/uL (0.0-0.1); BASOPHILS % (AUTO) 1 % (0-10); EOSINOPHILS # (AUTO) 0.3 10^3/uL (0.0-0.3); EOSINOPHILS % (AUTO) 3 % (0-10); HEMATOCRIT 41 % (35-52); HEMOGLOBIN 14.3 g/dL (11.5-16.0); LYMPHOCYTES % (AUTO) 11 % (12-44); MEAN CORPUSCULAR HEMOGLOBIN 30 pg (25-34); MEAN CORPUSCULAR HGB CONC 35 g/dL (32-36); MEAN CORPUSCULAR VOLUME 84 fL (80-99); MEAN PLATELET VOLUME 9.6 fL (9.0-12.2); MONOCYTES # (AUTO) 0.7 10^3/uL (0.0-1.0); MONOCYTES % (AUTO) 7 % (0-12); NEUTROPHILS # (AUTO) 7.5 10^3/uL (1.8-7.8); NEUTROPHILS % (AUTO) 79 % (42-75); PLATELET COUNT 272 10^3/uL (130-400); WHITE BLOOD COUNT 9.6 10^3/uL (4.3-11.0)
[2022-03-27 16:26] LABS: ALBUMIN 4.2 GM/DL (3.2-4.5); POTASSIUM 4.3 MMOL/L (3.6-5.0)
[2022-03-27 16:27] LABS: CALCIUM 9.5 MG/DL (8.5-10.1)
[2022-03-27 16:28] LABS: TOTAL PROTEIN 7.8 GM/DL (6.4-8.2)
[2022-03-27 16:30] LABS: BILIRUBIN,TOTAL 0.4 MG/DL (0.1-1.0)
[2022-03-27 16:32] LABS: CREATININE SERUM 0.85 MG/DL (0.60-1.30)
== END ==
LOC: LAB 15:12
PROVIDERS: ATTEND Family Medicine
DX: R10.11 Right upper quadrant pain (principal); R14.0 Abdominal distension (gaseous)
CPT/HCPCS: 36415; 80053; 82150; 83690; 85025

== ENCOUNTER → 2022-03-28 | Outpatient (CLI) | payer MEDICARE, OTHER ==
--- NOTE | 2022-03-28 09:35 | Diagnostic Imaging Report ---
PROCEDURE: US Gallbladder. TECHNIQUE: Multiple real-time grayscale images were obtained over the right upper quadrant in various projections. INDICATION: Right upper quadrant abdominal pain and bloating. Liver is normal in size at 14 cm. Portal vein is patent and shows normal direction of flow. No liver mass is detected. Gallbladder is without stones or sludge. No wall thickening or biliary duct dilatation is seen. Pancreas is mostly mostly obscured by bowel gas. Aorta is nonaneurysmal. IVC is patent. Right kidney is without evidence of calculi or hydronephrosis. There is no ascites. IMPRESSION: No evidence of cholelithiasis or acute cholecystitis. Dictated by: Dictated on workstation # [id number]
== END ==
LOC: RAD 07:15
PROVIDERS: ATTEND Family Medicine
DX: R10.11 Right upper quadrant pain (principal); R14.0 Abdominal distension (gaseous)
CPT/HCPCS: 76705

== ENCOUNTER → 2022-04-01 | Outpatient (CLI) | payer MEDICARE, OTHER ==
[2022-04-01 16:57] LABS: POTASSIUM 4.6 MMOL/L (3.6-5.0)
[2022-04-01 17:02] LABS: CREATININE SERUM 0.98 MG/DL (0.60-1.30)
== END ==
LOC: LAB 16:00
PROVIDERS: ATTEND Family Medicine
DX: E87.1 Hypo-osmolality and hyponatremia (principal)
CPT/HCPCS: 36415; 80048

== ENCOUNTER → 2022-04-17 | Outpatient (CLI) | payer MEDICARE, OTHER ==
[2022-04-17 12:22] LABS: CALCIUM 9.6 MG/DL (8.5-10.1); CREATININE SERUM 1.1 MG/DL (0.60-1.30); POTASSIUM 4.6 MMOL/L (3.6-5.0)
== END ==
LOC: LAB 11:43
PROVIDERS: ATTEND Family Medicine
DX: E87.1 Hypo-osmolality and hyponatremia (principal)
CPT/HCPCS: 36415; 80048

== ENCOUNTER → 2022-05-09 | Outpatient (CLI) | payer MEDICARE, OTHER ==
--- NOTE | 2022-05-09 14:25 | Diagnostic Imaging Report ---
PROCEDURE: CT head without contrast. TECHNIQUE: Multiple contiguous axial images were obtained through the brain without the use of intravenous contrast. Auto Exposure Controls were utilized during the CT exam to meet ALARA standards for radiation dose reduction. INDICATION: Hemotympanum. FINDINGS: Ventricles and sulci are within normal limits for size. There is no intracranial hemorrhage identified. There is no abnormal mass effect or shift of midline structures. There is atherosclerotic calcification within the distal internal carotid arteries. Mural thickening is noted within both maxillary sinuses. There is also fluid present within right mastoid air cells with fluid and thickening along the right tympanic membrane. Middle ear cavities are clear. IMPRESSION: No acute intracranial abnormality. There is partial opacification of multiple right mastoid air cells with thickening in the region of the tympanic membrane. No middle ear fluid collection or hematoma is identified. Dictated by: Dictated on workstation # [id number]
== END ==
LOC: RAD 13:30
PROVIDERS: ATTEND Family Medicine
DX: U07.1 COVID-19 (principal); H74.8X3 Other specified disorders of middle ear and mastoid, bilateral; J20.8 Acute bronchitis due to other specified organisms; J01.90 Acute sinusitis, unspecified; I10 Essential (primary) hypertension; H73.899 Other specified disorders of tympanic membrane, unspecified ear
CPT/HCPCS: 70450